=== PATIENT | male | born 1935 | race Caucasian/White ===

== ENCOUNTER 2019-06-11 12:27 | Inpatient (IN) | payer MEDICARE ==
[2019-06-11] MEDS ORDERED: NORMAL SALINE 1000 ML 1,000 ML IV ONE (12:46)
[2019-06-11] MEDS ORDERED: ONDANSETRON HCL INJ/PF 4 MG/2 ML SDV IV ONE (12:48)
--- NOTE | 2019-06-11 12:50 | ER Document Report ---
ED Medical Screen (RME) - General Chief Complaint: Dizziness Stated Complaint: DIZZINESS Time Seen by Provider: 06/11/19 12:46 Mode of Arrival: Ambulatory Information source: Patient Notes: 83-year-old male presented to ED for complaint of being sick since Thursday. He states he was outside working in the yard on Thursday when he started sweating said he drank some water changed his clothes and sweated again. He states he has been dehydrated with a headache thirsty upset stomach and nausea since Thursday. He states he has not been testing his sugar like he is supposed to and he is diabetic on metformin. He is requesting water at the bedside at this time. I have ordered blood work IV fluids and Accu-Chek at this time. Of also ordered some IV Zofran. Patient is alert oriented respirations regular and unlabored speaking in full sentences and his family is at his bedside. I have greeted and performed a rapid initial assessment of this patient. A comprehensive ED assessment and evaluation of the patient, analysis of test results and completion of medical decision making process will be conducted by an additional ED providers. TRAVEL OUTSIDE OF THE [place] IN LAST 30 DAYS: No - Related Data Allergies/Adverse Reactions: Sulfa (Sulfonamide Antibiotics) Allergy (Verified 06/11/19 12:29) Physical Exam - Vital signs Vitals: Temp Pulse Resp BP Pulse Ox 98.7 F 64 22 H 122/44 L 95 06/11/19 12:33 06/11/19 12:33 06/11/19 12:33 06/11/19 12:33 06/11/19 12:33 Course - Vital Signs Vital signs: Temp Pulse Resp BP Pulse Ox 98.7 F 64 22 H 122/44 L 95 06/11/19 12:33 06/11/19 12:33 06/11/19 12:33 06/11/19 12:33 06/11/19 12:33
--- NOTE | 2019-06-11 13:26 | ER Document Report ---
ED General - General Chief Complaint: Dizziness Stated Complaint: DIZZINESS Time Seen by Provider: 06/11/19 12:46 Primary Care Provider: RONALDO SHAY FNP-C [Primary Care Provider] - Follow up as needed Mode of Arrival: Ambulatory Information source: Patient Notes: HPI: Patient is an 83-year-old male who presents today stating around 5 days ago he was outside working in the yard very hot and sweaty. He states since then he has had episodes of lightheadedness mostly when he stands from a seated position. He denies vertigo-like symptoms. On review of systems he does state a mild frontal intermittent headache. No blurry vision, neck pain, weakness or numbness. No chest pain, vomiting, diarrhea, or dysuria. He denies any headache at this time. Patient is diabetic and has not checked his blood sugars recently. ROS: See HPI All other review of systems reviewed and otherwise negative Reviewed vital signs and nursing note as charted by RN. PHYSICAL EXAM: CONSTITUTIONAL: Alert and oriented and responds appropriately to questions. Well-appearing; well-nourished HEAD: Normocephalic; atraumatic EYES: PERRL; no nystagmus ENT: Normal nose; no rhinorrhea; moist mucous membranes; pharynx without lesions noted NECK: Supple without meningismus; non-tender; no carotid bruit; no cervical lymphadenopathy, no masses CARD: Regular rate and rhythm; no murmurs; symmetric distal pulses RESP: Normal chest excursion without splinting or tachypnea; breath sounds clear and equal bilaterally; no wheezes, no rhonchi, no rales ABD/GI: Normal bowel sounds; non-distended; soft, non-tender; no palpable organomegaly or masses BACK: The back appears normal and is non-tender to palpation EXT: Normal ROM in all joints; non-tender to palpation; no edema SKIN: No acute lesions noted NEURO: CN 2-12 intact; 5/5 bilateral upper and lower extremity strength with sensation intact to light touch; normal cerebellar exam PSYCH: The patient's mood and manner are appropriate. Grooming and personal hygiene are appropriate. TRAVEL OUTSIDE OF THE [place] IN LAST 30 DAYS: No - Related Data Allergies/Adverse Reactions: Sulfa (Sulfonamide Antibiotics) Allergy (Verified 06/11/19 12:29) Past Medical History - General Information source: Patient - Social History Smoking Status: Never Smoker Family History: Reviewed & Not Pertinent Patient has suicidal ideation: No Patient has homicidal ideation: No Renal/ Medical History: Denies: Hx Peritoneal Dialysis Physical Exam - Vital signs Vitals: Temp Pulse Resp BP Pulse Ox 98.7 F 64 22 H 122/44 L 95 06/11/19 12:33 06/11/19 12:33 06/11/19 12:33 06/11/19 12:33 06/11/19 12:33 Course - Re-evaluation Re-evalutation: 06/11/19 13:25 Given the above history and physical we will obtain basic labs, glucose level, EKG, CT scan of the head, and reassess. Given the intermittent nature of the frontal headache without blurry vision, temporal erythema or tenderness, fever, head trauma, I do believe subarachnoid hemorrhage, acute angle-closure glaucoma, temporal arteritis to be extremely unlikely. I would like to evaluate for the possibility of dehydration, cardiac abnormality, or intracranial mass. 06/11/19 13:29 EKG shows heart of 53, normal sinus rhythm, LVH, no ST elevation or depression 06/11/19 14:39 Labs as recorded. Concern for leukemia. Chemistry and CT scan as recorded. No change in exam. I am calling the local oncologist. 06/11/19 14:42 I have called and spoken to the oncologist. I have read the differential. She believes that we can keep the patient at this facility as we wait for the smear results and reassess. Patient will be admitted to the hospitalist service. - Vital Signs Vital signs: Temp Pulse Resp BP Pulse Ox 98.7 F 55 L 24 H 146/39 H 95 06/11/19 12:33 06/11/19 14:26 06/11/19 14:22 06/11/19 14:26 06/11/19 14:22 - Laboratory Result Diagrams: 06/11/19 13:04 06/11/19 13:04 Laboratory results interpreted by me: 06/11/19 06/11/19 06/11/19 13:04 13:04 13:05 WBC 88.5 H* RBC 3.69 L Hgb 10.9 L Hct 33.8 L RDW 15.2 H Seg Neuts % (Manual) 5 L Lymphocytes % (Manual) 88 H Monocytes % (Manual) 0 L Abs Lymphs (Manual) 84.1 H Abs Monocytes (Manual) 0.0 L Sodium 134.4 L Chloride 97 L BUN 24 H Creatinine 1.31 H Est GFR (MDRD) Non-Af 52 L Glucose 167 H POC Glucose 164 H Discharge - Discharge 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
[2019-06-11 13:27] LABS: VENOUS BLOOD HCO3 24.2 mmol/L (20-32); VENOUS BLOOD PCO2 42.3 mmHg (35-63); VENOUS BLOOD PH 7.38 (7.30-7.42)
[2019-06-11 13:45] LABS: ALKALINE PHOSPHATASE 52 U/L (38-126); ANION GAP 12 (5-19); ASPARTATE AMINO TRANSFERASE 34 U/L (17-59); BILIRUBIN,DIRECT 0.3 mg/dL (0.0-0.4); BLOOD UREA NITROGEN 24 mg/dL (7-20); CALCIUM 9.1 mg/dL (8.4-10.2); CARBON DIOXIDE 25 mmol/L (22-30); CHLORIDE 97 mmol/L (98-107); GLUCOSE 167 mg/dL (75-110); POTASSIUM 4.4 mmol/L (3.6-5.0); TOTAL PROTEIN 6.9 g/dL (6.3-8.2)
[2019-06-11 13:47] LABS: HEMATOCRIT 33.8 % (37.9-51.0); HEMOGLOBIN 10.9 g/dL (13.5-17.0); MEAN CORPUSCULAR HEMOGLOBIN 29.7 pg (27.0-33.4); MEAN CORPUSCULAR HGB CONC 32.3 g/dL (32.0-36.0); MEAN CORPUSCULAR VOLUME 92 fl (80-97); PLATELET COUNT 158 10^3/uL (150-450); RED BLOOD COUNT 3.69 10^6/uL (4.35-5.55); RED CELL DISTRIBUTION WIDTH 15.2 % (11.5-14.0)
--- NOTE | 2019-06-11 13:54 | RADIOLOGY REPORT (SQ) ---
EXAM DESCRIPTION: CT HEAD WITHOUT COMPLETED DATE/TIME: 06/11/2019 1:46 pm REASON FOR STUDY: 83; headaches and lightheadedness COMPARISON: None. TECHNIQUE: Axial images acquired through the brain without intravenous contrast. Images reviewed wi th bone, brain and subdural windows. Additional sagittal and coronal reconstructions were generated. Images stored on PACS. All CT scanners at this facility use dose modulation, iterative reconstruction, and/or weight based d osing when appropriate to reduce radiation dose to as low as reasonably achievable (ALARA). [facility]: Dose Right [facility]: CareDose [facility]: Dose Right [facility]: Teradose 4D [facility]: Smart [employer] RADIATION DOSE: CT Rad equipment meets quality standard of care and radiation dose reduction techniq ues were employed. CTDIvol: 48.6 mGy. DLP: 930 mGy-cm.mGy. LIMITATIONS: None. FINDINGS: VENTRICLES: Prominent. CEREBRUM: No masses. No hemorrhage. No midline shift. Areas of low density in the white matter mos t likely due to chronic micro-vascular ischemic change. No evidence for acute infarction. CEREBELLUM: No masses. No hemorrhage. No alteration of density. No evidence for acute infarction. EXTRAAXIAL SPACES: Age-related involutional change. No fluid collections. No masses. ORBITS AND GLOBE: No intra- or extraconal masses. Normal contour of globe without masses. CALVARIUM: No fracture. PARANASAL SINUSES: No fluid or mucosal thickening. SOFT TISSUES: No mass or hematoma. OTHER: No other significant finding. IMPRESSION: CHRONIC CHANGES OF ATROPHY AND MICROVASCULAR ISCHEMIA. NO ACUTE PROCESS. EVIDENCE OF ACUTE STROKE: NO. TECHNICAL DOCUMENTATION: JOB ID: [id number] Quality ID # [id number]: Final reports with documentation of one or more dose reduction techniques (e.g., Au tomated exposure control, adjustment of the mA and/or kV according to patient size, use of iterative reconstruction technique) 2010 [employer]- All Rights Reserved Reading location - IP/workstation name: [email or web address]
[2019-06-11 14:12] LABS: WHITE BLOOD COUNT 88.5 10^3/uL (4.0-10.5)
[2019-06-11 14:16] LABS: ABSOLUTE LYMPHOCYTES# (MANUAL) 84.1 10^3/uL (0.5-4.7); BASOPHILS % (MANUAL) 0 % (0-2); EOSINOPHILS % (MANUAL) 0 % (0-6); MONOCYTES % (MANUAL) 0 % (3-13); SEGMENTED NEUTROPHILS % (MAN) 5 % (42-78); TOTAL CELLS COUNTED 100
[2019-06-11 14:17] LABS: ANISOCYTOSIS SLIGHT; LYMPHOCYTES % (MANUAL) 88 % (13-45); PLATELET COMMENT ADEQUATE
[2019-06-11 14:42] LABS: APPEARANCE,URINE SLIGHTLY-CLOUDY; BILIRUBIN,URINE NEGATIVE (NEGATIVE); COLOR,URINE AMBER; GLUCOSE, URINE NEGATIVE (NEGATIVE); KETONES,URINE NEGATIVE (NEGATIVE); LEUKOCYTE ESTERASE,URINE NEGATIVE (NEGATIVE); NITRITE,URINE NEGATIVE (NEGATIVE); PROTEIN,URINE 100 mg/dL (NEGATIVE); URINE SPECIFIC GRAVITY 1.024
[2019-06-11] MEDS ORDERED: ONDANSETRON HCL INJ/PF 4 MG/2 ML SDV IV PRN (15:27)
[2019-06-11] MEDS ORDERED: DEXTROSE 50%-WATER 25 GM/50 ML DISP.SYRIN IV PRN ×2 (15:32)
[2019-06-11] MEDS ORDERED: GLUCAGON,HUMAN RECOMB 1 MG INJ IM PRN (15:32)
[2019-06-11] MEDS ORDERED: DEXTROSE 40% GEL 15 GM TUBE PO PRN ×2 (15:32)
--- NOTE | 2019-06-11 15:44 | PDOC H&P ---
History of Present Illness Admission Date/PCP: 06/11/19 15:11 NARDA DENSON Patient complains of: dizziness History of Present Illness: GUS EASTMAN is a 83 year old male history of diabetes mellitus moved from [place] 6 months ago brought in by family members with complaints of dizziness associated nausea and a decreased appetite is also mentioning about weight loss for the last few weeks. Work-up in the emergency room shows WBC of 88,000 with absolute lymphocytes of around 88% after discussion with her doctor as sought medical consult was called for admission and further management. Patient denies any fevers denies any cough denies any chest pains denies any vomiting diarrhea. Only complaints are dizziness and nausea. Is also complaining of decreased appetite weight loss but is not sure how much weight he lost. We do not have any previous records available. Past Medical History Endocrine Medical History: Reports: Diabetes Mellitus Type 2 Past Surgical History Past Surgical History: Reports: Appendectomy, Tonsillectomy Social History Information Source: Patient Lives with: Family Smoking Status: Never Smoker Frequency of Alcohol Use: Occasional Hx Recreational Drug Use: No Hx Prescription Drug Abuse: No - Advance Directive Resuscitation Status: Do Not Resuscitate Surrogate healthcare decision maker:: has the power of ip attorney. Family History Family History: Reviewed & Not Pertinent Parental Family History Reviewed: Yes - Family history of cancer. Children Family History Reviewed: Yes Sibling(s) Family History Reviewed.: Yes Medication/Allergy Home Medications: Levothyroxine Sodium [Synthroid 0.025 mg Tablet] 0.025 mg PO Q6AM 06/11/19 Metformin HCl 500 mg PO BID 06/11/19 Paroxetine HCl [Paxil] 30 mg PO DAILY 06/11/19 Pioglitazone HCl [Actos 15 mg Tablet] 15 mg PO DAILY 06/11/19 Allergies/Adverse Reactions: Sulfa (Sulfonamide Antibiotics) Allergy (Verified 06/11/19 12:29) Review of Systems Constitutional: PRESENT: fatigue, headache(s), weakness. ABSENT: fever(s), ni ght sweats Eyes: ABSENT: visual disturbances Ears: ABSENT: hearing changes Nose, Mouth, and Throat: ABSENT: sore throat Cardiovascular: ABSENT: dyspnea on exertion, edema, orthropnea, palpitations Gastrointestinal: PRESENT: nausea. ABSENT: coffee ground emesis, constipation, diarrhea, heartburn, hematemesis, hematochezia, melena, vomiting Genitourinary: ABSENT: dysuria, hematuria Musculoskeletal: ABSENT: joint swelling Integumentary: ABSENT: rash, wounds Neurological: PRESENT: dizziness Psychiatric: ABSENT: anxiety, depression, homidical ideation, suicidal ideation Physical Exam Vital Signs: Temp Pulse Resp BP Pulse Ox 98.7 F 55 L 24 H 134/46 H 92 06/11/19 12:33 06/11/19 14:26 06/11/19 15:01 06/11/19 15:00 06/11/19 15:01 Intake & Output 06/10/19 06/11/19 06/12/19 06:59 06:59 06:59 Intake Total 1000 Balance 1000 Weight 99.3 kg General appearance: PRESENT: no acute distress, cooperative Head exam: PRESENT: atraumatic, other Eye exam: PRESENT: PERRLA Ear exam: PRESENT: normal external ear exam Mouth exam: PRESENT: neck supple Neck exam: ABSENT: carotid bruit, JVD, lymphadenopathy, thyromegaly Respiratory exam: PRESENT: decreased breath sounds Cardiovascular exam: PRESENT: RRR. ABSENT: diastolic murmur, rubs, systolic mur mur GI/Abdominal exam: PRESENT: normal bowel sounds, soft. ABSENT: distended, guarding, mass, organolmegaly, rebound, tenderness Rectal exam: PRESENT: deferred Extremities exam: PRESENT: full ROM. ABSENT: calf tenderness, clubbing, pedal edema Neurological exam: PRESENT: alert, awake, oriented to person, oriented to place, oriented to time, oriented to situation, CN II-XII grossly intact. ABSENT: motor sensory deficit Psychiatric exam: PRESENT: anxious Results Laboratory Results: 06/11/19 13:04 06/11/19 13:04 06/11/19 06/11/19 06/11/19 13:04 13:04 13:04 WBC 88.5 H* RBC 3.69 L Hgb 10.9 L Hct 33.8 L MCV 92 MCH 29.7 MCHC 32.3 RDW 15.2 H Plt Count 158 Seg Neutrophils % Not Reportable VBG pH 7.38 VBG pCO2 42.3 VBG HCO3 24.2 VBG Base Excess -1.0 Sodium 134.4 L Potassium 4.4 Chloride 97 L Carbon Dioxide 25 Anion Gap 12 BUN 24 H Creatinine 1.31 H Est GFR ( Amer) > 60 Glucose 167 H Calcium 9.1 Total Bilirubin 1.0 AST 34 Alkaline Phosphatase 52 Total Protein 6.9 Albumin 4.0 Urine Color Urine Appearance Urine pH Ur Specific [place] Urine Protein Urine Glucose (UA) Urine Ketones Urine Blood Urine Nitrite Ur Leukocyte Esterase Urine WBC (Auto) Urine RBC (Auto) 06/11/19 14:00 WBC RBC Hgb Hct MCV MCH MCHC RDW Plt Count Seg Neutrophils % VBG pH VBG pCO2 VBG HCO3 VBG Base Excess Sodium Potassium Chloride Carbon Dioxide Anion Gap BUN Creatinine Est GFR ( Amer) Glucose Calcium Total Bilirubin AST Alkaline Phosphatase Total Protein Albumin Urine Color JANET Urine Appearance SLIGHTLY-CLOUDY Urine pH 5.0 Ur Specific [place] 1.024 Urine Protein 100 H Urine Glucose (UA) NEGATIVE Urine Ketones NEGATIVE Urine Blood MODERATE H Urine Nitrite NEGATIVE Ur Leukocyte Esterase NEGATIVE Urine WBC (Auto) 1 Urine RBC (Auto) 4 06/11/19 13:04 Troponin I 0.031 Impressions: Head CT 06/11/19 13:23 IMPRESSION: CHRONIC CHANGES OF ATROPHY AND MICROVASCULAR ISCHEMIA. NO ACUTE PROCESS. EVIDENCE OF ACUTE STROKE: NO. 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 Consultation with Dr. garibay was requested. Started on IV fluids as per her recommendations. CT abdomen/pelvis, CT chest with IV and p.o. contrast was requested. GI prophylaxis DVT prophylaxis was provided. Leukocyte lymphocyte panel lab test was requested. Patient was placed on a diabetic diet and insulin sliding scale before meals and at bedtime. (2) Diabetes Qualifiers: Diabetes mellitus type: type 2 Is this a current diagnosis for this admission?: No Plan: 06/11/2019-patient given the history of type 2 diabetes mellitus is taking Actos and metformin at home. To hold metformin and continue Actos started on blood sugar monitoring before meals and at bedtime with Humalog coverage and hemoglobin A1c was requested. (3) DNR (do not resuscitate) Is this a current diagnosis for this admission?: Yes Plan: 06/11/2019-patient expressed his desire to be DNR/DNI. - Time Time Spent with patient: 15-24 minutes Medications reviewed and adjusted accordingly: Yes Anticipated discharge: Home
--- NOTE | 2019-06-11 17:04 | Progress Note ---
Provider Note Provider Note: I was asked to see patient for elevated WBC count. I have reviewed patient's chart but have not yet been able to see the patient. 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 Will obtain Flow Cytometry for leukemia on peripheral blood. Fluids have been started. Will repeat CBC in about 12 hours and consider starting Hydrea at that point. His HGB and PLTs are fairly close to normal. No indication for blood transfusion at this time. I will see patient within 24 hours.
[2019-06-11 18:51] LABS: HEMATOCRIT 31.1 % (37.9-51.0); HEMOGLOBIN 9.8 g/dL (13.5-17.0); MEAN CORPUSCULAR HEMOGLOBIN 29.1 pg (27.0-33.4); MEAN CORPUSCULAR HGB CONC 31.6 g/dL (32.0-36.0); MEAN CORPUSCULAR VOLUME 92 fl (80-97); PLATELET COUNT 156 10^3/uL (150-450); RED BLOOD COUNT 3.38 10^6/uL (4.35-5.55); RED CELL DISTRIBUTION WIDTH 15.4 % (11.5-14.0)
[2019-06-11 19:11] LABS: WHITE BLOOD COUNT 89.8 10^3/uL (4.0-10.5)
--- NOTE | 2019-06-11 19:12 | EKG REPORT ---
SEVERITY:- ABNORMAL ECG - SINUS RHYTHM LVH WITH IVCD AND SECONDARY REPOL ABNRM : Confirmed by: Abiola Oneal MD 11-Jun-2019 19:11:49
[2019-06-11 19:14] LABS: ABSOLUTE LYMPHOCYTES# (MANUAL) 82.6 10^3/uL (0.5-4.7); ABSOLUTE MONOCYTES # (MANUAL) 0.9 10^3/uL (0.1-1.4); BASOPHILS % (MANUAL) 0 % (0-2); EOSINOPHILS % (MANUAL) 0 % (0-6); LYMPHOCYTES % (MANUAL) 88 % (13-45); MONOCYTES % (MANUAL) 1 % (3-13); SEGMENTED NEUTROPHILS % (MAN) 7 % (42-78); TOTAL CELLS COUNTED 100
[2019-06-11 19:15] LABS: ANISOCYTOSIS SLIGHT; OVALOCYTES SLIGHT; PLATELET COMMENT ADEQUATE; POIKILOCYTOSIS SLIGHT
[2019-06-11] MEDS: INSULIN LISPRO 100 UNIT/ML 3 ML VIAL SUBCUT SCH ×2 (19:29→23:23)
[2019-06-11] MEDS: ENOXAPARIN SODIUM INJ 40 MG/0.4 ML DISP.SYRIN SUBCUT SCH (19:32)
[2019-06-11] MEDS: PANTOPRAZOLE SODIUM 40 MG TABLET.DR PO SCH (19:32)
[2019-06-11] MEDS: NORMAL SALINE 1000 ML 1,000 ML IV PRN (19:34)
--- NOTE | 2019-06-11 19:37 | RADIOLOGY REPORT (SQ) ---
EXAM DESCRIPTION: CT CHEST WITH; CT ABD/PELVIS WITH IV ORAL COMPLETED DATE/TIME: 06/11/2019 6:50 pm REASON FOR STUDY: leukemia; acute leukemia CONTRAST TYPE AND DOSE: contrast/concentration: Isovue 350.00 mg/ml; Total Contrast Delivered: 100.0 ml; Total Saline Delivered: 72.0 ml RENAL FUNCTION: Creatinine 1.31 COMPARISON: None. TECHNIQUE: CT scan of the chest performed using helical scanning technique with dynamic intravenous contrast injection. Images reviewed with lung, soft tissue and bone windows. Reconstructed coronal a nd sagittal MPR images reviewed. All images stored on PACS. All CT scanners at this facility use dose modulation, iterative reconstruction, and/or weight based d osing when appropriate to reduce radiation dose to as low as reasonably achievable (ALARA). [facility]: Dose Right [facility]: CareDose [facility]: Dose Right [facility]: Teradose 4D [facility]: [employer] RADIATION DOSE: CT Rad equipment meets quality standard of care and radiation dose reduction techniq ues were employed. CTDIvol: 11.8 - 13.7 mGy. DLP: 1981 mGy-cm.. LIMITATIONS: Patient motion artifact. FINDINGS: AXILLAE: Enlarged lymph nodes are seen at the bilateral axillary regions measuring up to 1 3 mm in short axis on the right and 17 mm in short axis on the left. CHEST WALL: No masses. No subcutaneous air. LUNGS: Masslike consolidation with adjacent ground-glass opacity at the medial right lower lobe. No pneumothorax PLEURA: No effusions. No calcifications. THYROID: No masses or significant asymmetry. HILAR AND MEDIASTINAL STRUCTURES: Calcified lymph nodes are seen at the mediastinum and hilar regions . Enlarged lymph nodes are noted at the mediastinum. An AP window lymph node is measuring 16 mm in short axis. A subcarinal lymph node is measuring 14 mm in short axis. AORTA AND GREAT VESSELS: No thoracic aortic aneurysm or acute dissection. HEART: The heart is enlarged. No pericardial effusion. HARDWARE AND LIFELINES: None. BONES: Multilevel degenerative changes at the spine. IMPRESSION: 1. Masslike consolidation with adjacent ground-glass opacity at the medial right lower lobe, may be secondary to acute infection/inflammation such as pneumonia versus neoplasm. Clinical correlation recommended. Evaluation with PET/ CT as clinically warranted. 2. Mediastinal and axillary adenopathy, may be secondary to known leukemia. 3. Cardiomegaly. COMPARISON: None. RADIATION DOSE: CT Rad equipment meets quality standard of care and radiation dose reduction techniq ues were employed. CTDIvol: 11.8 - 13.7 mGy. DLP: 1981 mGy-cm.mGy. TECHNIQUE: CT scan of the abdomen and pelvis performed with intravenous and oral contrast using elias zulma scanning technique with dynamic intravenous contrast injection. Images reviewed with lung, soft tissue and bone windows. Reconstructed coronal and sagittal MPR images reviewed. Delayed images for evaluation of the urinary system also acquired and evaluated. All images stored on PACS. All CT scanners at this facility use dose modulation, iterative reconstruction, and/or weight based d osing when appropriate to reduce radiation dose to as low as reasonably achievable (ALARA). [facility]: Dose Right [facility]: [employer] [facility]: Dose Right [facility]: Teradose 4D [facility]: [employer] FINDINGS: LIVER: Normal size. No masses. No dilated ducts. Periportal adenopathy measuring up to 1 .8 cm in short axis. SPLEEN: Normal size. There is a 1.7 x 1.3 cm hypodense lesion at the anterior aspect of the spleen. Small calcifications within the spleen may represent granulomas. PANCREAS: No masses. No significant calcifications. No adjacent inflammation or peripancreatic flui d collections. Pancreatic duct not dilated. GALLBLADDER: No identified stones by CT criteria. No inflammatory changes to suggest cholecystitis. ADRENAL GLANDS: No significant masses or asymmetry. RIGHT KIDNEY AND URETER: There is a 7 mm (608 Hounsfield units) calculus at the mid right ureter at L3-L4 level. There is a nonobstructing 2 mm calculus at the inferior pole of the right kidney. No hy dronephrosis or hydroureter. LEFT KIDNEY AND URETER: Nonobstructing calculi at the left kidney measuring up to 8 mm (954 Hounsfiel d units). No hydronephrosis or hydroureter. AORTA AND VESSELS: Atherosclerotic calcifications within the abdominal and its branches. No abdomina l aortic aneurysm or acute dissection. RETROPERITONEUM: There are enlarged retroperitoneal lymph nodes. A left para-aortic lymph node is me asuring 2.1 cm in short axis. LARGE AND SMALL BOWEL: No bowel obstruction, the oral contrast has reached the colon. No focal infla mmatory changes. There is colonic diverticulosis with no CT evidence for acute diverticulitis. APPENDIX: Not visualized. ABDOMINAL WALL: There is a small fat containing umbilical hernia. PERITONEAL CAVITY: No free air. No free fluid. PELVIS: No mass or free fluid. The urinary bladder is partially distended. There are enlarged lymph nodes at the pelvis, the largest along the external iliac chains measuring up to 2.1 cm in short axi s on the right and 2.2 cm in short axis on the left. There are bilateral enlarged inguinal lymph nod es measuring up to 1.7 cm in short axis on the right and 1.1 cm in short axis on the left. BONES: Multilevel degenerative changes at the spine. IMPRESSION: 1. Abdominal, retroperitoneal, pelvic and inguinal adenopathy, may be secondary to known leukemia. 2. 1.7 x 1.3 cm hypodense splenic lesion, indeterminate. 3. 7 mm right ureteral calculus. No hydronephrosis. Bilateral nephrolithiasis. 4. Colonic diverticulosis. TECHNICAL DOCUMENTATION: JOB ID: [id number] Quality ID # [id number]: Final reports with documentation of one or more dose reduction techniques (e.g., Au tomated exposure control, adjustment of the mA and/or kV according to patient size, use of iterative reconstruction technique) 2010 [employer]- All Rights Reserved Reading location - IP/workstation name: [email or web address]
[2019-06-11] MEDS: ACETAMINOPHEN 325 MG TABLET PO PRN (20:35)
[2019-06-11] MEDS ORDERED: CEFTRIAXONE 1 GM/D5W RTU 1 GM/50 ML RTUPB IV ONE (22:33)
[2019-06-11] MEDS: CEFTRIAXONE 1 GM/D5W RTU 1 GM/50 ML RTUPB IV SCH (23:30)
[2019-06-12 04:46] LABS: HEMATOCRIT 30.4 % (37.9-51.0); HEMOGLOBIN 9.7 g/dL (13.5-17.0); MEAN CORPUSCULAR HEMOGLOBIN 29.4 pg (27.0-33.4); MEAN CORPUSCULAR HGB CONC 32.1 g/dL (32.0-36.0); MEAN CORPUSCULAR VOLUME 92 fl (80-97); PLATELET COUNT 136 10^3/uL (150-450); RED BLOOD COUNT 3.31 10^6/uL (4.35-5.55); RED CELL DISTRIBUTION WIDTH 15.1 % (11.5-14.0)
[2019-06-12 04:58] LABS: ALBUMIN 3.3 g/dL (3.5-5.0); ALKALINE PHOSPHATASE 46 U/L (38-126); ANION GAP 11 (5-19); ASPARTATE AMINO TRANSFERASE 40 U/L (17-59); BILIRUBIN,DIRECT 0.4 mg/dL (0.0-0.4); BILIRUBIN,TOTAL 0.8 mg/dL (0.2-1.3); BLOOD UREA NITROGEN 24 mg/dL (7-20); CALCIUM 8.4 mg/dL (8.4-10.2); CARBON DIOXIDE 23 mmol/L (22-30); CHLORIDE 99 mmol/L (98-107); CHOLESTEROL 127.34 mg/dL (0-200); GLUCOSE 122 mg/dL (75-110); POTASSIUM 4.2 mmol/L (3.6-5.0); TRIGLYCERIDES 102 mg/dL (<150)
[2019-06-12 05:08] LABS: DIRECT LDL 91 mg/dL (<100)
[2019-06-12 05:13] LABS: WHITE BLOOD COUNT 83.1 10^3/uL (4.0-10.5)
[2019-06-12 05:37] LABS: ABSOLUTE LYMPHOCYTES# (MANUAL) 82.3 10^3/uL (0.5-4.7); BASOPHILS % (MANUAL) 0 % (0-2); EOSINOPHILS % (MANUAL) 0 % (0-6); LYMPHOCYTES % (MANUAL) 92 % (13-45); MONOCYTES % (MANUAL) 0 % (3-13); SEGMENTED NEUTROPHILS % (MAN) 1 % (42-78); TOTAL CELLS COUNTED 100
[2019-06-12 05:38] LABS: ANISOCYTOSIS SLIGHT; PLATELET COMMENT DECREASED
[2019-06-12] MEDS: PANTOPRAZOLE SODIUM 40 MG TABLET.DR PO SCH ×2 (06:16→17:27)
[2019-06-12] MEDS: ACETAMINOPHEN 325 MG TABLET PO PRN ×3 (06:18→23:21)
[2019-06-12] MEDS: INSULIN LISPRO 100 UNIT/ML 3 ML VIAL SUBCUT SCH ×4 (08:56→21:56)
[2019-06-12] MEDS: LEVOTHYROXINE SODIUM 0.025 MG TABLET PO SCH (08:58)
--- NOTE | 2019-06-12 08:59 | PDOC PROGRESS REPORT ---
Subjective Progress Note for:: 06/12/19 Subjective:: 83 year old male history of diabetes mellitus moved from [place] 6 months ago brought in by family members with complaints of dizziness associated nausea and a decreased appetite is also mentioning about weight loss for the last few weeks. Work-up in the emergency room shows WBC of 88,000 with absolute lymphocytes of around 88% after discussion with her doctor as sought medical consult was called for admission and further management. Patient denies any fevers denies any cough denies any chest pains denies any vomiting diarrhea. Only complaints are dizziness and nausea. Is also complaining of decreased appetite weight loss but is not sure how much weight he lost. We do not have any previous records available. 06/12/[id number]-zjme-old male admitted with elevated WBC count patient might have acute leukemia or chronic lymphocytic leukemia. CT chest was done along with CT abdomen pelvis which shows abdominal retroperitoneal pelvic and inguinal lymphadenopathy. Splenic lesion is seen present. Work-up for alpha-fetoprotein and flow cytology is pending. Patient is DNR/DNI. comfortably in be sleeping. Reason For Visit: ACUTE LEUKEMIA Physical Exam Vital Signs: Temp Pulse Resp BP Pulse Ox 98.9 F 57 L 20 118/42 L 94 06/12/19 00:00 06/12/19 00:00 06/12/19 00:00 06/12/19 00:00 06/12/19 00:00 Intake & Output 06/11/19 06/12/19 06/13/19 06:59 06:59 06:59 Intake Total 1050 Output Total 100 Balance 950 Weight 99.3 kg General appearance: PRESENT: no acute distress, obese Head exam: PRESENT: atraumatic Eye exam: PRESENT: PERRLA Mouth exam: PRESENT: moist, tongue midline Teeth exam: PRESENT: poor dentation Neck exam: ABSENT: carotid bruit, JVD, lymphadenopathy, thyromegaly Respiratory exam: PRESENT: clear to auscultation zeke. ABSENT: rales, rhonchi, wheezes Cardiovascular exam: PRESENT: RRR. ABSENT: diastolic murmur, rubs, systolic murmur GI/Abdominal exam: PRESENT: normal bowel sounds, soft. ABSENT: distended, guarding, mass, organolmegaly, rebound, tenderness Rectal exam: PRESENT: deferred Extremities exam: PRESENT: full ROM. ABSENT: calf tenderness, clubbing, pedal edema Neurological exam: PRESENT: alert, awake, oriented to person, oriented to place, oriented to time, oriented to situation, CN II-XII grossly intact. ABSENT: motor sensory deficit Psychiatric exam: PRESENT: appropriate affect, normal mood. ABSENT: homicidal ideation, suicidal ideation Results Laboratory Results: 06/12/19 04:06 06/12/19 04:06 06/11/19 06/11/19 06/11/19 13:04 13:04 13:04 WBC 88.5 H* RBC 3.69 L Hgb 10.9 L Hct 33.8 L MCV 92 MCH 29.7 MCHC 32.3 RDW 15.2 H Plt Count 158 Seg Neutrophils % Not Reportable VBG pH 7.38 VBG pCO2 42.3 VBG HCO3 24.2 VBG Base Excess -1.0 Sodium 134.4 L Potassium 4.4 Chloride 97 L Carbon Dioxide 25 Anion Gap 12 BUN 24 H Creatinine 1.31 H Est GFR ( Amer) > 60 Glucose 167 H Calcium 9.1 Magnesium Total Bilirubin 1.0 AST 34 Alkaline Phosphatase 52 Total Protein 6.9 Albumin 4.0 Triglycerides Cholesterol LDL Cholesterol Direct VLDL Cholesterol HDL Cholesterol TSH Urine Color Urine Appearance Urine pH Ur Specific [place] Urine Protein Urine Glucose (UA) Urine Ketones Urine Blood Urine Nitrite Ur Leukocyte Esterase Urine WBC (Auto) Urine RBC (Auto) 06/11/19 06/11/19 06/12/19 14:00 18:25 04:06 WBC 89.8 H* 83.1 H* RBC 3.38 L 3.31 L Hgb 9.8 L 9.7 L Hct 31.1 L 30.4 L MCV 92 92 MCH 29.1 29.4 MCHC 31.6 L 32.1 RDW 15.4 H 15.1 H Plt Count 156 136 L Seg Neutrophils % Not Reportable Not Reportable VBG pH VBG pCO2 VBG HCO3 VBG Base Excess Sodium Potassium Chloride Carbon Dioxide Anion Gap BUN Creatinine Est GFR ( Amer) Glucose Calcium Magnesium Total Bilirubin AST Alkaline Phosphatase Total Protein Albumin Triglycerides Cholesterol LDL Cholesterol Direct VLDL Cholesterol HDL Cholesterol TSH Urine Color JANET Urine Appearance SLIGHTLY-CLOUDY Urine pH 5.0 Ur Specific [place] 1.024 Urine Protein 100 H Urine Glucose (UA) NEGATIVE Urine Ketones NEGATIVE Urine Blood MODERATE H Urine Nitrite NEGATIVE Ur Leukocyte Esterase NEGATIVE Urine WBC (Auto) 1 Urine RBC (Auto) 4 06/12/19 06/12/19 04:06 04:06 WBC RBC Hgb Hct MCV MCH MCHC RDW Plt Count Seg Neutrophils % VBG pH VBG pCO2 VBG HCO3 VBG Base Excess Sodium 132.9 L Potassium 4.2 Chloride 99 Carbon Dioxide 23 Anion Gap 11 BUN 24 H Creatinine 1.24 Est GFR ( Amer) > 60 Glucose 122 H Calcium 8.4 Magnesium 2.0 Total Bilirubin 0.8 AST 40 Alkaline Phosphatase 46 Total Protein 6.0 L Albumin 3.3 L Triglycerides 102 Cholesterol 127.34 LDL Cholesterol Direct 91 VLDL Cholesterol 20.0 HDL Cholesterol 21 L TSH 4.17 Urine Color Urine Appearance Urine pH Ur Specific [place] Urine Protein Urine Glucose (UA) Urine Ketones Urine Blood Urine Nitrite Ur Leukocyte Esterase Urine WBC (Auto) Urine RBC (Auto) 06/11/19 06/12/19 13:04 04:06 Troponin I 0.031 NT-Pro-B Natriuret Pep 2470 H Impressions: Abdomen/Pelvis CT 06/11/19 00:00 IMPRESSION: 1. Masslike consolidation with adjacent ground-glass opacity at the medial right lower lobe, may be secondary to acute infection/inflammation such as pneumonia versus neoplasm. Clinical correlation recommended. Evaluation with PET/ CT as clinically warranted. 2. Mediastinal and axillary adenopathy, may be secondary to known leukemia. 3. Cardiomegaly. IMPRESSION: 1. Abdominal, retroperitoneal, pelvic and inguinal adenopathy, may be secondary to known leukemia. 2. 1.7 x 1.3 cm hypodense splenic lesion, indeterminate. 3. 7 mm right ureteral calculus. No hydronephrosis. Bilateral nephrolithiasis. 4. Colonic diverticulosis. Chest CT 06/11/19 00:00 IMPRESSION: 1. Masslike consolidation with adjacent ground-glass opacity at the medial right lower lobe, may be secondary to acute infection/inflammation such as pneumonia versus neoplasm. Clinical correlation recommended. Evaluation with PET/ CT as clinically warranted. 2. Mediastinal and axillary adenopathy, may be secondary to known leukemia. 3. Cardiomegaly. IMPRESSION: 1. Abdominal, retroperitoneal, pelvic and inguinal adenopathy, may be secondary to known leukemia. 2. 1.7 x 1.3 cm hypodense splenic lesion, indeterminate. 3. 7 mm right ureteral calculus. No hydronephrosis. Bilateral nephrolithiasis. 4. Colonic diverticulosis. Head CT 06/11/19 13:23 IMPRESSION: CHRONIC CHANGES OF ATROPHY AND MICROVASCULAR ISCHEMIA. NO ACUTE PROCESS. EVIDENCE OF ACUTE STROKE: NO. 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 Consultation with Dr. garibay was requested. Started on IV fluids as per her recommendations. CT abdomen/pelvis, CT chest with IV and p.o. contrast was requested. GI prophylaxis DVT prophylaxis was provided. Leukocyte lymphocyte panel lab test was requested. Patient was placed on a diabetic diet and insulin sliding scale before meals and at bedtime. 06/12/2019-patient admitted with elevated WBC count. Blood cultures work-up is pending to see whether it is acute lymphocytic leukemia or chronic lymphocytic leukemia. As per Dr. Curtis recommendations patient is presently on IV fluids. CT abdomen pelvis along with CT chest indicates extensive lymphadenopathy. Splenic lesion was noticed. Flow cytometry results are pending. (2) Diabetes Qualifiers: Diabetes mellitus type: type 2 Is this a current diagnosis for this admission?: No Plan: 06/11/2019-patient given the history of type 2 diabetes mellitus is taking Actos and metformin at home. To hold metformin and continue Actos started on blood sugar monitoring before meals and at bedtime with Humalog coverage and hemoglobin A1c was requested. 06/12/2019-patient's blood sugar is 157 today. Presently on insulin sliding scale. At home he is on Actos and metformin to hold metformin during this hospital stay. Blood sugar monitoring before meals and at bedtime with insulin coverage. Hemoglobin A1c 7.5. (3) DNR (do not resuscitate) Is this a current diagnosis for this admission?: Yes - Time Time Spent with patient: 25-34 minutes Medications reviewed and adjusted accordingly: Yes Anticipated discharge: Home
[2019-06-12] MEDS ORDERED: (PENDING PHARMACY ID) (Paroxetine Hcl [Paxil] 30 MG) PO SCH (10:00)
[2019-06-12] MEDS: NORMAL SALINE 1000 ML 1,000 ML IV PRN (10:42)
[2019-06-12] MEDS: PIOGLITAZONE HCL 15 MG TABLET PO SCH (10:43)
[2019-06-12] MEDS: ENOXAPARIN SODIUM INJ 40 MG/0.4 ML DISP.SYRIN SUBCUT SCH (10:43)
--- NOTE | 2019-06-12 14:10 | PDOC CONSULTATION ---
Consultation Consult Date: 06/12/19 Provider Consulted: UNRULY ZAMARRIPA Consult reason:: Hematology/Oncology consultation was requested for patient with elevated WBC count. History of Present Illness Admission Date/PCP: 06/11/19 15:11 NARDA DENSON History of Present Illness: GUS EASTMAN is a 83 year old male who moved here from [place], [place] area about 6 months ago. Patient is pleasantly confused and does not remember the name of his physicians in [place] or locally. I also spoke with daughter and she confirmed his history and states that she will try to obtain prior records [facility]. Patient was doing well until 6 days prior to admission when he states he was out in the hot sum working and felt "funny." Daughter reports that he was just "not himself." He was sleeping more, complaining of headache, and some knee pain. Family reports that he has been told in the past that his blood counts were elevated, but they deny that he was seeing a kitchen bath designer. Patient states that in [place] they were "squashing it." On arrival, he was found to have a fever and WBC count of >80,000. He was admitted, started on fluids, and also started on Rocephin after blood cultures were drawn. His Tmax was 102.7. Past Medical History Endocrine Medical History: Reports: Diabetes Mellitus Type 2 Psychiatric Medical History: Reports: Depression Past Surgical History Past Surgical History: Reports: Appendectomy, Tonsillectomy Social History Information Source: Patient, Relative Lives with: Family Smoking Status: Never Smoker Frequency of Alcohol Use: Occasional Hx Recreational Drug Use: No Drugs: None Hx Prescription Drug Abuse: No Past Social History Note: 3 children, 7 grand children. - Advance Directive Resuscitation Status: Do Not Resuscitate Family History Parental Family History Reviewed: Yes - Patient does not remember Children Family History Reviewed: No Sibling(s) Family History Reviewed.: No Medication/Allergy Home Medications: Levothyroxine Sodium [Synthroid 0.025 mg Tablet] 0.025 mg PO Q6AM 06/11/19 Metformin HCl 500 mg PO BID 06/11/19 Paroxetine HCl [Paxil] 30 mg PO DAILY 06/11/19 Pioglitazone HCl [Actos 15 mg Tablet] 15 mg PO DAILY 06/11/19 Allergies/Adverse Reactions: Sulfa (Sulfonamide Antibiotics) Allergy (Verified 06/11/19 12:29) Review of Systems Constitutional: PRESENT: fever(s), headache(s) Eyes: ABSENT: visual disturbances Ears: ABSENT: hearing changes Nose, Mouth, and Throat: ABSENT: sore throat Cardiovascular: ABSENT: chest pain Respiratory: ABSENT: dyspnea Gastrointestinal: ABSENT: constipation, nausea Genitourinary: ABSENT: dysuria Integumentary: ABSENT: rash Neurological: PRESENT: confusion Hematologic/Lymphatic: ABSENT: easy bleeding, lymphadenopathy Physical Exam Vital Signs: Temp Pulse Resp BP Pulse Ox 98.9 F 54 L 16 112/47 L 94 06/12/19 08:36 06/12/19 08:36 06/12/19 08:36 06/12/19 08:36 06/12/19 08:36 Intake & Output 06/11/19 06/12/19 06/13/19 06:59 06:59 06:59 Intake Total 1050 1000 Output Total 100 Balance 950 1000 Weight 99.3 kg General appearance: PRESENT: no acute distress, well-developed, well-nourished Exam: 83 year old male. Head exam: PRESENT: atraumatic, normocephalic Eye exam: PRESENT: EOMI Mouth exam: PRESENT: tongue midline Throat exam: PRESENT: other - No thrush. Neck exam: ABSENT: lymphadenopathy, tenderness Respiratory exam: PRESENT: clear to auscultation zeke Cardiovascular exam: PRESENT: RRR. ABSENT: systolic murmur GI/Abdominal exam: PRESENT: normal bowel sounds, soft. ABSENT: organolmegaly Extremities exam: ABSENT: pedal edema Neurological exam: PRESENT: alert, awake, oriented to person. ABSENT: oriented to place, oriented to time Psychiatric exam: PRESENT: appropriate affect, depressed, other - Very sleepy. Skin exam: PRESENT: normal color Results Laboratory Results: 06/12/19 04:06 06/12/19 04:06 06/11/19 06/11/19 06/11/19 13:04 14:00 18:25 WBC 88.5 H* 89.8 H* RBC 3.69 L 3.38 L Hgb 10.9 L 9.8 L Hct 33.8 L 31.1 L MCV 92 92 MCH 29.7 29.1 MCHC 32.3 31.6 L RDW 15.2 H 15.4 H Plt Count 158 156 Seg Neutrophils % Not Reportable Not Reportable Sodium Potassium Chloride Carbon Dioxide Anion Gap BUN Creatinine Est GFR ( Amer) Glucose Calcium Magnesium Total Bilirubin AST Alkaline Phosphatase Total Protein Albumin Triglycerides Cholesterol LDL Cholesterol Direct VLDL Cholesterol HDL Cholesterol TSH Urine Color JANET Urine Appearance SLIGHTLY-CLOUDY Urine pH 5.0 Ur Specific [place] 1.024 Urine Protein 100 H Urine Glucose (UA) NEGATIVE Urine Ketones NEGATIVE Urine Blood MODERATE H Urine Nitrite NEGATIVE Ur Leukocyte Esterase NEGATIVE Urine WBC (Auto) 1 Urine RBC (Auto) 4 06/12/19 06/12/19 06/12/19 04:06 04:06 04:06 WBC 83.1 H* RBC 3.31 L Hgb 9.7 L Hct 30.4 L MCV 92 MCH 29.4 MCHC 32.1 RDW 15.1 H Plt Count 136 L Seg Neutrophils % Not Reportable Sodium 132.9 L Potassium 4.2 Chloride 99 Carbon Dioxide 23 Anion Gap 11 BUN 24 H Creatinine 1.24 Est GFR ( Amer) > 60 Glucose 122 H Calcium 8.4 Magnesium 2.0 Total Bilirubin 0.8 AST 40 Alkaline Phosphatase 46 Total Protein 6.0 L Albumin 3.3 L Triglycerides 102 Cholesterol 127.34 LDL Cholesterol Direct 91 VLDL Cholesterol 20.0 HDL Cholesterol 21 L TSH 4.17 Urine Color Urine Appearance Urine pH Ur Specific [place] Urine Protein Urine Glucose (UA) Urine Ketones Urine Blood Urine Nitrite Ur Leukocyte Esterase Urine WBC (Auto) Urine RBC (Auto) 06/11/19 06/12/19 13:04 04:06 Troponin I 0.031 NT-Pro-B Natriuret Pep 2470 H Impressions: Abdomen/Pelvis CT 06/11/19 00:00 IMPRESSION: 1. Masslike consolidation with adjacent ground-glass opacity at the medial right lower lobe, may be secondary to acute infection/inflammation such as pneumonia versus neoplasm. Clinical correlation recommended. Evaluation with PET/ CT as clinically warranted. 2. Mediastinal and axillary adenopathy, may be secondary to known leukemia. 3. Cardiomegaly. IMPRESSION: 1. Abdominal, retroperitoneal, pelvic and inguinal adenopathy, may be secondary to known leukemia. 2. 1.7 x 1.3 cm hypodense splenic lesion, indeterminate. 3. 7 mm right ureteral calculus. No hydronephrosis. Bilateral nephrolithiasis. 4. Colonic diverticulosis. Chest CT 06/11/19 00:00 IMPRESSION: 1. Masslike consolidation with adjacent ground-glass opacity at the medial right lower lobe, may be secondary to acute infection/inflammation such as pneumonia versus neoplasm. Clinical correlation recommended. Evaluation with PET/ CT as clinically warranted. 2. Mediastinal and axillary adenopathy, may be secondary to known leukemia. 3. Cardiomegaly. IMPRESSION: 1. Abdominal, retroperitoneal, pelvic and inguinal adenopathy, may be secondary to known leukemia. 2. 1.7 x 1.3 cm hypodense splenic lesion, indeterminate. 3. 7 mm right ureteral calculus. No hydronephrosis. Bilateral nephrolithiasis. 4. Colonic diverticulosis. Head CT 06/11/19 13:23 IMPRESSION: CHRONIC CHANGES OF ATROPHY AND MICROVASCULAR ISCHEMIA. NO ACUTE PROCESS. EVIDENCE OF ACUTE STROKE: NO. 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 This may be CLL, as his peripheral blood smear shows mainly mature lymphocytes. However, there is no splenomegaly, and I have no old CBCs for comparison. Daughter will try to obtain old records, both locally and from [place]. Await Peripheral blood Flow Cytometry. He has been started on IV fluids. I will start Hydrea, low dose and watch counts closely. No indication for blood transfusion at this time. (2) Diabetes Qualifiers: Diabetes mellitus type: type 2 Is this a current diagnosis for this admission?: No Plan: Watch blood glucose. (3) Pneumonia Is this a current diagnosis for this admission?: Yes Plan: CT scan showed possible pneumonia and with fever, will treat emperically, awaiting blood cultures. Clinically, lungs sound clear. - Plan Summary Plan Summary: I will continue to follow with you. If evidence that this is an acute leukemia, may nee dto transfer to tertiary center, but will await Flow report. Patient was discussed with Dr. Ramirez. I did examine blood smear personally.
[2019-06-12] MEDS: PAROXETINE HCL 20 MG TABLET PO SCH (15:02)
[2019-06-12] MEDS: HYDROXYUREA 500 MG CAPSULE PO SCH (17:29)
[2019-06-12] MEDS: CEFTRIAXONE 1 GM/D5W RTU 1 GM/50 ML RTUPB IV SCH (22:01)
[2019-06-13] MEDS: PANTOPRAZOLE SODIUM 40 MG TABLET.DR PO SCH ×2 (06:15→20:52)
[2019-06-13] MEDS: LEVOTHYROXINE SODIUM 0.025 MG TABLET PO SCH (06:15)
[2019-06-13 06:22] LABS: HEMATOCRIT 30.6 % (37.9-51.0); HEMOGLOBIN 9.7 g/dL (13.5-17.0); MEAN CORPUSCULAR HEMOGLOBIN 29.1 pg (27.0-33.4); MEAN CORPUSCULAR HGB CONC 31.7 g/dL (32.0-36.0); MEAN CORPUSCULAR VOLUME 92 fl (80-97); PLATELET COUNT 161 10^3/uL (150-450); RED BLOOD COUNT 3.33 10^6/uL (4.35-5.55); RED CELL DISTRIBUTION WIDTH 15.2 % (11.5-14.0)
[2019-06-13] MEDS ORDERED: MORPHINE SULFATE 10 MG/ML INJ ONE (06:34)
[2019-06-13 06:38] LABS: ALBUMIN 3.2 g/dL (3.5-5.0); ALKALINE PHOSPHATASE 47 U/L (38-126); ANION GAP 11 (5-19); ASPARTATE AMINO TRANSFERASE 47 U/L (17-59); BILIRUBIN,DIRECT 0.3 mg/dL (0.0-0.4); BILIRUBIN,TOTAL 0.6 mg/dL (0.2-1.3); BLOOD UREA NITROGEN 24 mg/dL (7-20); CALCIUM 8.2 mg/dL (8.4-10.2); CARBON DIOXIDE 23 mmol/L (22-30); CHLORIDE 100 mmol/L (98-107); GLUCOSE 143 mg/dL (75-110); POTASSIUM 4.2 mmol/L (3.6-5.0); TOTAL PROTEIN 5.7 g/dL (6.3-8.2)
[2019-06-13 06:43] LABS: WHITE BLOOD COUNT 85.8 10^3/uL (4.0-10.5)
[2019-06-13 06:57] LABS: ABSOLUTE LYMPHOCYTES# (MANUAL) 56.6 10^3/uL (0.5-4.7); ABSOLUTE MONOCYTES # (MANUAL) 9.4 10^3/uL (0.1-1.4); BASOPHILS % (MANUAL) 0 % (0-2); EOSINOPHILS % (MANUAL) 3 % (0-6); LYMPHOCYTES % (MANUAL) 65 % (13-45); MONOCYTES % (MANUAL) 11 % (3-13); SEGMENTED NEUTROPHILS % (MAN) 20 % (42-78); TOTAL CELLS COUNTED 100; TOXIC GRANULATION SLIGHT; TOXIC VACUOLATION PRESENT
[2019-06-13 06:58] LABS: ANISOCYTOSIS 1+; HELMET CELLS SLIGHT; OVALOCYTES 1+; PLATELET COMMENT ADEQUATE; POIKILOCYTOSIS 1+; SCHISTOCYTES 1+; TEAR DROP CELLS SLIGHT
[2019-06-13] MEDS: INSULIN LISPRO 100 UNIT/ML 3 ML VIAL SUBCUT SCH ×4 (08:08→22:11)
[2019-06-13] MEDS: ACETAMINOPHEN 325 MG TABLET PO PRN ×2 (08:10→15:17)
[2019-06-13] MEDS ORDERED: ONDANSETRON HCL INJ/PF 4 MG/2 ML SDV IV PRN (08:30)
--- NOTE | 2019-06-13 09:20 | PDOC PROGRESS REPORT ---
Subjective Progress Note for:: 06/13/19 Subjective:: Patient only opens eyes briefly. He does respond to questions and denies any problems today. Daughter is at bedside. Nurses report that he has not eaten anything, only takes a few sips of water. Fluids were stopped due to respiratory congestion. Reason For Visit: ACUTE LEUKEMIA Physical Exam Vital Signs: Temp Pulse Resp BP Pulse Ox 102.7 F H 69 20 127/50 H 98 06/12/19 23:21 06/12/19 23:21 06/12/19 23:21 06/12/19 23:21 06/12/19 23:21 Intake & Output 06/12/19 06/13/19 06/14/19 06:59 06:59 06:59 Intake Total 1050 1472 Output Total 100 Balance 950 1472 Weight 99.3 kg 86.3 kg General appearance: PRESENT: mild distress Exam: Overweight, male. arouses only briefly. Head exam: PRESENT: normocephalic Respiratory exam: PRESENT: other - Audible rattle. Cardiovascular exam: PRESENT: other - heart sounds obscured. GI/Abdominal exam: PRESENT: soft. ABSENT: tenderness Extremities exam: ABSENT: pedal edema Skin exam: PRESENT: normal color Results Laboratory Results: 06/13/19 05:25 06/13/19 05:25 06/13/19 06/13/19 05:25 05:25 WBC 85.8 H* RBC 3.33 L Hgb 9.7 L Hct 30.6 L MCV 92 MCH 29.1 MCHC 31.7 L RDW 15.2 H Plt Count 161 Seg Neutrophils % Not Reportable Sodium 134.0 L Potassium 4.2 Chloride 100 Carbon Dioxide 23 Anion Gap 11 BUN 24 H Creatinine 1.15 Est GFR ( Amer) > 60 Glucose 143 H Calcium 8.2 L Magnesium 2.1 Total Bilirubin 0.6 AST 47 Alkaline Phosphatase 47 Total Protein 5.7 L Albumin 3.2 L 06/11/19 06/12/19 13:04 04:06 Troponin I 0.031 NT-Pro-B Natriuret Pep 2470 H Impressions: Abdomen/Pelvis CT 06/11/19 00:00 IMPRESSION: 1. Masslike consolidation with adjacent ground-glass opacity at the medial right lower lobe, may be secondary to acute infection/inflammation such as pneumonia versus neoplasm. Clinical correlation recommended. Evaluation with PET/ CT as clinically warranted. 2. Mediastinal and axillary adenopathy, may be secondary to known leukemia. 3. Cardiomegaly. IMPRESSION: 1. Abdominal, retroperitoneal, pelvic and inguinal adenopathy, may be secondary to known leukemia. 2. 1.7 x 1.3 cm hypodense splenic lesion, indeterminate. 3. 7 mm right ureteral calculus. No hydronephrosis. Bilateral nephrolithiasis. 4. Colonic diverticulosis. Chest CT 06/11/19 00:00 IMPRESSION: 1. Masslike consolidation with adjacent ground-glass opacity at the medial right lower lobe, may be secondary to acute infection/inflammation such as pneumonia versus neoplasm. Clinical correlation recommended. Evaluation with PET/ CT as clinically warranted. 2. Mediastinal and axillary adenopathy, may be secondary to known leukemia. 3. Cardiomegaly. IMPRESSION: 1. Abdominal, retroperitoneal, pelvic and inguinal adenopathy, may be secondary to known leukemia. 2. 1.7 x 1.3 cm hypodense splenic lesion, indeterminate. 3. 7 mm right ureteral calculus. No hydronephrosis. Bilateral nephrolithiasis. 4. Colonic diverticulosis. Head CT 06/11/19 13:23 IMPRESSION: CHRONIC CHANGES OF ATROPHY AND MICROVASCULAR ISCHEMIA. NO ACUTE PROCESS. EVIDENCE OF ACUTE STROKE: NO. 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 [facility] er, await Flow Cytometry to determine for sure if this is an acute leukemia or not. If this is an acute leukemia, patient is currently not clinically well enough to start any treatment. I have discussed this with his daughter. I have explained that I am very concerned that he may not survive this hospital admission, but only time will tell. (2) Diabetes Qualifiers: Diabetes mellitus type: type 2 Is this a current diagnosis for this admission?: No (3) Pneumonia Is this a current diagnosis for this admission?: Yes Plan: Fevers continue. He is on Rocephin and Levaquin. Repeat CXR has been ordered. I will also check ECHO to determine his LVEF. - Plan Summary Plan Summary: Hopefully, family will be able to get him to eat and drink some. His condition is guarded, but he is a DNR. Patient was also discussed with Dr. Duncan this morning.
--- NOTE | 2019-06-13 10:02 | PDOC PROGRESS REPORT ---
Subjective Progress Note for:: 06/13/19 Subjective:: 83 year old male history of diabetes mellitus moved from [place] 6 months ago brought in by family members with complaints of dizziness associated nausea and a decreased appetite is also mentioning about weight loss for the last few weeks. Work-up in the emergency room shows WBC of 88,000 with absolute lymphocytes of around 88% after discussion with her doctor as sought medical consult was called for admission and further management. Patient denies any fevers denies any cough denies any chest pains denies any vomiting diarrhea. Only complaints are dizziness and nausea. Is also complaining of decreased appetite weight loss but is not sure how much weight he lost. We do not have any previous records available. 06/12/[id number]-cger-old male admitted with elevated WBC count patient might have acute leukemia or chronic lymphocytic leukemia. CT chest was done along with CT abdomen pelvis which shows abdominal retroperitoneal pelvic and inguinal lymphadenopathy. Splenic lesion is seen present. Work-up for alpha-fetoprotein and flow cytology is pending. Patient is DNR/DNI. comfortably in be sleeping. 06/13 [id number]-old male admitted with elevated WBC it may be acute leukemia or chronic leukemia work-up in progress. CT scan of the chest suggestive of masslike lesion it can be neoplasm or pneumonia. He is having the spiking fevers. Started on Rocephin yesterday to add levo floxacillin today. oncology on board Reason For Visit: ACUTE LEUKEMIA Physical Exam Vital Signs: Temp Pulse Resp BP Pulse Ox 102.7 F H 78 22 H 154/52 H 83 L 06/13/19 07:40 06/13/19 07:40 06/13/19 07:40 06/13/19 07:40 06/13/19 07:40 Intake & Output 06/12/19 06/13/19 06/14/19 06:59 06:59 06:59 Intake Total 1050 1472 Output Total 100 Balance 950 1472 Weight 99.3 kg 86.3 kg General appearance: PRESENT: no acute distress, cooperative, obese Head exam: PRESENT: atraumatic Eye exam: PRESENT: PERRLA Mouth exam: PRESENT: moist, tongue midline Teeth exam: PRESENT: poor dentation Neck exam: ABSENT: carotid bruit, JVD, lymphadenopathy, thyromegaly Respiratory exam: PRESENT: decreased breath sounds Cardiovascular exam: PRESENT: RRR. ABSENT: diastolic murmur, rubs, systolic murmur GI/Abdominal exam: PRESENT: normal bowel sounds, soft. ABSENT: distended, guarding, mass, organolmegaly, rebound, tenderness Rectal exam: PRESENT: deferred Extremities exam: PRESENT: full ROM. ABSENT: calf tenderness, clubbing, pedal edema Neurological exam: PRESENT: alert, awake, oriented to person, oriented to place, oriented to time, oriented to situation, CN II-XII grossly intact. ABSENT: motor sensory deficit Psychiatric exam: PRESENT: appropriate affect, normal mood. ABSENT: homicidal ideation, suicidal ideation Results Laboratory Results: 06/13/19 05:25 06/13/19 05:25 06/13/19 06/13/19 05:25 05:25 WBC 85.8 H* RBC 3.33 L Hgb 9.7 L Hct 30.6 L MCV 92 MCH 29.1 MCHC 31.7 L RDW 15.2 H Plt Count 161 Seg Neutrophils % Not Reportable Sodium 134.0 L Potassium 4.2 Chloride 100 Carbon Dioxide 23 Anion Gap 11 BUN 24 H Creatinine 1.15 Est GFR ( Amer) > 60 Glucose 143 H Calcium 8.2 L Magnesium 2.1 Total Bilirubin 0.6 AST 47 Alkaline Phosphatase 47 Total Protein 5.7 L Albumin 3.2 L 06/11/19 06/12/19 13:04 04:06 Troponin I 0.031 NT-Pro-B Natriuret Pep 2470 H Impressions: Abdomen/Pelvis CT 06/11/19 00:00 IMPRESSION: 1. Masslike consolidation with adjacent ground-glass opacity at the medial right lower lobe, may be secondary to acute infection/inflammation such as pneumonia versus neoplasm. Clinical correlation recommended. Evaluation with PET/ CT as clinically warranted. 2. Mediastinal and axillary adenopathy, may be secondary to known leukemia. 3. Cardiomegaly. IMPRESSION: 1. Abdominal, retroperitoneal, pelvic and inguinal adenopathy, may be secondary to known leukemia. 2. 1.7 x 1.3 cm hypodense splenic lesion, indeterminate. 3. 7 mm right ureteral calculus. No hydronephrosis. Bilateral nephrolithiasis. 4. Colonic diverticulosis. Chest CT 06/11/19 00:00 IMPRESSION: 1. Masslike consolidation with adjacent ground-glass opacity at the medial right lower lobe, may be secondary to acute infection/inflammation such as pneumonia versus neoplasm. Clinical correlation recommended. Evaluation with PET/ CT as clinically warranted. 2. Mediastinal and axillary adenopathy, may be secondary to known leukemia. 3. Cardiomegaly. IMPRESSION: 1. Abdominal, retroperitoneal, pelvic and inguinal adenopathy, may be secondary to known leukemia. 2. 1.7 x 1.3 cm hypodense splenic lesion, indeterminate. 3. 7 mm right ureteral calculus. No hydronephrosis. Bilateral nephrolithiasis. 4. Colonic diverticulosis. Head CT 06/11/19 13:23 IMPRESSION: CHRONIC CHANGES OF ATROPHY AND MICROVASCULAR ISCHEMIA. NO ACUTE PROCESS. EVIDENCE OF ACUTE STROKE: NO. Assessment and Plan - Diagnosis (1) Acute leukemia Qualifiers: Leukemia Active/Remission status: without remission Qualified Code(s): C95. 00 - Acute leukemia of unspecified cell type not having achieved remission Is this a current diagnosis for this admission?: Yes Plan: 06/11/2019-patient is going to be admitted in the hospital for leukemia. Consultation with Dr. garibay was requested. Started on IV fluids as per her recommendations. CT abdomen/pelvis, CT chest with IV and p.o. contrast was requested. GI prophylaxis DVT prophylaxis was provided. Leukocyte lymphocyte panel lab test was requested. Patient was placed on a diabetic diet and insulin sliding scale before meals and at bedtime. 06/12/2019-patient admitted with elevated WBC count. Blood cultures work-up is p ending to see whether it is acute lymphocytic leukemia or chronic lymphocytic leukemia. As per Dr. Curtis recommendations patient is presently on IV fluids. CT abdomen pelvis along with CT chest indicates extensive lymphadenopathy. Splenic lesion was noticed. Flow cytometry results are pending. 06/13/2019-patient came in with elevated WBC count he count it was 85,000 today most likely he has a leukemia work-up in progress for to differentiate between acute versus chronic leukemia Dr. Mancera is following the patient. Patient also febrile from yesterday. CT scan shows masslike opacification most likely community-acquired pneumonia versus neoplasm. Presently on IV Rocephin and levo floxacillin. Blood cultures and sputum cultures are pending. (2) Diabetes Qualifiers: Diabetes mellitus type: type 2 Is this a current diagnosis for this admission?: No Plan: 06/11/2019-patient given the history of type 2 diabetes mellitus is taking Actos and metformin at home. To hold metformin and continue Actos started on blood sugar monitoring before meals and at bedtime with Humalog coverage and hemo globin A1c was requested. 06/12/2019-patient's blood sugar is 157 today. Presently on insulin sliding scale. At home he is on Actos and metformin to hold metformin during this hospital stay. Blood sugar monitoring before meals and at bedtime with insulin coverage. Hemoglobin A1c 7.5. 2018 patient blood sugar today is 162 stable. Presently on insulin sliding scale plan is to continue the present management. (3) DNR (do not resuscitate) Is this a current diagnosis for this admission?: Yes (4) Pneumonia Is this a current diagnosis for this admission?: Yes Plan: 06/13/2019-CT scan of the chest shows possible right middle lobe consolidation versus neoplasm. Patient is having the high fevers. No hypotension zaria is noticed. Presently on IV Rocephin 2 g daily and add IV levo floxacillin 40 mg IV daily. Lactic acid was requested blood cultures and urine cultures are pending. Plan is to repeat the chest x-ray today and continue the antibiotic therapy. It can be community-acquired pneumonia. Possible gram-positive to organisms responsible. - Time Time Spent with patient: 25-34 minutes Medications reviewed and adjusted accordingly: Yes Anticipated discharge: SNF
[2019-06-13] MEDS: LEVOFLOXACIN 750 MG/D5W RTU 750 MG/150 ML RTUPB IV SCH (10:57)
[2019-06-13] MEDS: ENOXAPARIN SODIUM INJ 40 MG/0.4 ML DISP.SYRIN SUBCUT SCH (10:57)
[2019-06-13] MEDS: HYDROXYUREA 500 MG CAPSULE PO SCH ×2 (10:58→22:06)
[2019-06-13] MEDS: PIOGLITAZONE HCL 15 MG TABLET PO SCH (10:58)
[2019-06-13] MEDS: PAROXETINE HCL 20 MG TABLET PO SCH (10:59)
--- NOTE | 2019-06-13 17:59 | RADIOLOGY REPORT (SQ) ---
EXAM DESCRIPTION: CHEST 2 VIEWS COMPLETED DATE/TIME: 06/13/2019 5:51 pm REASON FOR STUDY: pneumonia COMPARISON: None. EXAM PARAMETERS: NUMBER OF VIEWS: two views TECHNIQUE: Digital Frontal and Lateral radiographic views of the chest acquired. RADIATION DOSE: NA LIMITATIONS: none FINDINGS: LUNGS AND PLEURA: No opacities, masses or pneumothorax. No pleural effusion. MEDIASTINUM AND HILAR STRUCTURES: No masses or contour abnormalities. HEART AND VASCULAR STRUCTURES: Heart normal size. No evidence for failure. BONES: No acute findings. HARDWARE: None in the chest. OTHER: No other significant finding. IMPRESSION: NO ACUTE RADIOGRAPHIC FINDING IN THE CHEST. TECHNICAL DOCUMENTATION: JOB ID: [id number] [employer]- All Rights Reserved Reading location - IP/workstation name: [email or web address]
[2019-06-13] MEDS: CEFTRIAXONE 1 GM/D5W RTU 1 GM/50 ML RTUPB IV SCH (22:11)
[2019-06-13] MEDS: MORPHINE SULFATE 10 MG/ML INJ IV PRN (23:56)
[2019-06-14] MEDS ORDERED: FUROSEMIDE INJ/PF 40 MG/4 ML SDV IV ONE (01:10)
[2019-06-14] MEDS: MORPHINE SULFATE 10 MG/ML INJ IV PRN ×2 (04:48→11:36)
[2019-06-14 05:33] LABS: HEMATOCRIT 29.6 % (37.9-51.0); HEMOGLOBIN 9.6 g/dL (13.5-17.0); MEAN CORPUSCULAR HEMOGLOBIN 29.6 pg (27.0-33.4); MEAN CORPUSCULAR HGB CONC 32.4 g/dL (32.0-36.0); MEAN CORPUSCULAR VOLUME 91 fl (80-97); PLATELET COUNT 177 10^3/uL (150-450); RED BLOOD COUNT 3.24 10^6/uL (4.35-5.55); RED CELL DISTRIBUTION WIDTH 15.1 % (11.5-14.0)
[2019-06-14] MEDS: LEVOTHYROXINE SODIUM 0.025 MG TABLET PO SCH (05:41)
[2019-06-14] MEDS: PANTOPRAZOLE SODIUM 40 MG TABLET.DR PO SCH ×2 (05:41→16:26)
[2019-06-14 05:45] LABS: WHITE BLOOD COUNT 85.8 10^3/uL (4.0-10.5)
[2019-06-14 05:48] LABS: ALBUMIN 3.1 g/dL (3.5-5.0); ALKALINE PHOSPHATASE 44 U/L (38-126); ANION GAP 10 (5-19); ASPARTATE AMINO TRANSFERASE 48 U/L (17-59); BILIRUBIN,DIRECT 0.3 mg/dL (0.0-0.4); BILIRUBIN,TOTAL 0.5 mg/dL (0.2-1.3); BLOOD UREA NITROGEN 24 mg/dL (7-20); CALCIUM 8.2 mg/dL (8.4-10.2); CARBON DIOXIDE 24 mmol/L (22-30); CHLORIDE 98 mmol/L (98-107); GLUCOSE 180 mg/dL (75-110); POTASSIUM 4.2 mmol/L (3.6-5.0); TOTAL PROTEIN 5.7 g/dL (6.3-8.2)
[2019-06-14 06:22] LABS: BASOPHILS % (MANUAL) 0 % (0-2); EOSINOPHILS % (MANUAL) 0 % (0-6); MONOCYTES % (MANUAL) 0 % (3-13); SEGMENTED NEUTROPHILS % (MAN) 16 % (42-78); TOTAL CELLS COUNTED 100
[2019-06-14 06:23] LABS: TOXIC GRANULATION SLIGHT
[2019-06-14 06:25] LABS: ANISOCYTOSIS 1+; BURR CELLS SLIGHT; OVALOCYTES 1+; POIKILOCYTOSIS 1+; SCHISTOCYTES SLIGHT
[2019-06-14 06:26] LABS: PLATELET COMMENT ADEQUATE
--- NOTE | 2019-06-14 08:37 | PDOC PROGRESS REPORT ---
Subjective Progress Note for:: 06/14/19 Subjective:: Yesterday, patient seems to have more crackles and was more short of breath and was given Lasix and seems a little bit better per nursing today. But this is the first time I am seeing him so he still seems to have loud crackles that are audible without auscultation, I discussed his case with his daughter who is with him, we discussed that morphologically it looks like his CLL, but the flow cytometry will confirm this. Of note, she mentioned that he was seen by Dr. Leo Burch in [facility], phone number [phone], and he was told that he had leukocytosis last year, so he may have had a work-up done already. He just moved to this area in December of this year. But she notes that over the last few months prior to admission he was quite strong and mentally very sharp, and completely independent with all ADLs and IADLs. Today spent 45 minutes in discussion and coordination of care, discussed case with hospitalist team as well. Reason For Visit: ACUTE LEUKEMIA Physical Exam Vital Signs: Temp Pulse Resp BP Pulse Ox 100.4 F 82 21 H 165/53 H 94 06/13/19 23:51 06/13/19 23:51 06/13/19 23:51 06/13/19 23:51 06/13/19 23:51 Intake & Output 06/13/19 06/14/19 06/15/19 06:59 06:59 06:59 Intake Total 1472 700 Balance 1472 700 Weight 86.3 kg General appearance: PRESENT: no acute distress, well-developed, well-nourished Head exam: PRESENT: atraumatic, normocephalic Eye exam: PRESENT: conjunctiva pink, EOMI, PERRLA. ABSENT: scleral icterus Ear exam: PRESENT: normal external ear exam Mouth exam: PRESENT: moist, tongue midline Neck exam: ABSENT: carotid bruit, JVD, lymphadenopathy, thyromegaly Respiratory exam: PRESENT: clear to auscultation zeke. ABSENT: rales, rhonchi, wheezes Cardiovascular exam: PRESENT: RRR. ABSENT: diastolic murmur, rubs, systolic murmur Pulses: PRESENT: normal dorsalis pedis pul Vascular exam: PRESENT: normal capillary refill GI/Abdominal exam: PRESENT: normal bowel sounds, soft. ABSENT: distended, guarding, mass, organolmegaly, rebound, tenderness Rectal exam: PRESENT: deferred Extremities exam: PRESENT: full ROM. ABSENT: calf tenderness, clubbing, pedal edema Neurological exam: PRESENT: alert, awake, oriented to person, oriented to place, oriented to time, oriented to situation, CN II-XII grossly intact. ABSENT: motor sensory deficit Psychiatric exam: PRESENT: appropriate affect, normal mood. ABSENT: homicidal ideation, suicidal ideation Skin exam: PRESENT: dry, intact, warm. ABSENT: cyanosis, rash Results Laboratory Results: 06/14/19 04:20 06/14/19 04:20 06/13/19 06/14/19 06/14/19 10:15 04:20 04:20 WBC 85.8 H* RBC 3.24 L Hgb 9.6 L Hct 29.6 L MCV 91 MCH 29.6 MCHC 32.4 RDW 15.1 H Plt Count 177 Seg Neutrophils % Not Reportable Sodium 132.0 L Potassium 4.2 Chloride 98 Carbon Dioxide 24 Anion Gap 10 BUN 24 H Creatinine 1.15 Est GFR ( Amer) > 60 Glucose 180 H Lactic Acid 0.7 Calcium 8.2 L Magnesium 2.2 Total Bilirubin 0.5 AST 48 Alkaline Phosphatase 44 Total Protein 5.7 L Albumin 3.1 L 06/11/19 06/12/19 13:04 04:06 Troponin I 0.031 NT-Pro-B Natriuret Pep 2470 H Impressions: Abdomen/Pelvis CT 06/11/19 00:00 IMPRESSION: 1. Masslike consolidation with adjacent ground-glass opacity at the medial right lower lobe, may be secondary to acute infection/inflammation such as pneumonia versus neoplasm. Clinical correlation recommended. Evaluation with PET/ CT as clinically warranted. 2. Mediastinal and axillary adenopathy, may be secondary to known leukemia. 3. Cardiomegaly. IMPRESSION: 1. Abdominal, retroperitoneal, pelvic and inguinal adenopathy, may be secondary to known leukemia. 2. 1.7 x 1.3 cm hypodense splenic lesion, indeterminate. 3. 7 mm right ureteral calculus. No hydronephrosis. Bilateral nephrolithiasis. 4. Colonic diverticulosis. Chest CT 06/11/19 00:00 IMPRESSION: 1. Masslike consolidation with adjacent ground-glass opacity at the medial right lower lobe, may be secondary to acute infection/inflammation such as pneumonia versus neoplasm. Clinical correlation recommended. Evaluation with PET/ CT as clinically warranted. 2. Mediastinal and axillary adenopathy, may be secondary to known leukemia. 3. Cardiomegaly. IMPRESSION: 1. Abdominal, retroperitoneal, pelvic and inguinal adenopathy, may be secondary to known leukemia. 2. 1.7 x 1.3 cm hypodense splenic lesion, indeterminate. 3. 7 mm right ureteral calculus. No hydronephrosis. Bilateral nephrolithiasis. 4. Colonic diverticulosis. Head CT 06/11/19 13:23 IMPRESSION: CHRONIC CHANGES OF ATROPHY AND MICROVASCULAR ISCHEMIA. NO ACUTE PROCESS. EVIDENCE OF ACUTE STROKE: NO. Chest X-Ray 06/13/19 08:15 IMPRESSION: NO ACUTE RADIOGRAPHIC FINDING IN THE CHEST. Assessment & Plan - Diagnosis (1) CLL (chronic lymphocytic leukemia) Is this a current diagnosis for this admission?: Yes Plan: Probably a CLL rather than in AMl/ALL per pathology. I have given information to Dr. López about his previous physician to get records. (2) Pneumonia Qualifiers: Pneumonia type: due to unspecified organism Laterality: bilateral Lung location: lower lobe of lung Qualified Code(s): J18.1 - Lobar pneumonia, unspecified organism Is this a current diagnosis for this admission?: Yes Plan: He probably does have a pneumonia, as he does have the likely CLL he is certainly a nidus for infection, discussed with Dr. Hamilton of the hospitalist team to consider broadening the coverage a little bit. He will look at the patient and imaging and decide. - Time Time Spent with patient: 35 or more minutes - Inpatient Certification Based on my medical assessment, after consideration of the patient's comorbidities, presenting symptoms, or acuity I expect that the services needed warrant INPATIENT care.: Yes I certify that my determination is in accordance with my understanding of Medicare's requirements for reasonable and necessary INPATIENT services [42 CFR 412.3e].: Yes Medical Necessity: Need for IV Antibiotics, Risk of Complication if Not Cared For in Hospital
[2019-06-14] MEDS: ENOXAPARIN SODIUM INJ 40 MG/0.4 ML DISP.SYRIN SUBCUT SCH (09:18)
[2019-06-14] MEDS: INSULIN LISPRO 100 UNIT/ML 3 ML VIAL SUBCUT SCH ×4 (09:18→21:49)
[2019-06-14] MEDS: LEVOFLOXACIN 750 MG/D5W RTU 750 MG/150 ML RTUPB IV SCH (09:19)
[2019-06-14] MEDS: PAROXETINE HCL 20 MG TABLET PO SCH (09:20)
[2019-06-14] MEDS: HYDROXYUREA 500 MG CAPSULE PO SCH ×2 (09:20→18:08)
[2019-06-14] MEDS: PIOGLITAZONE HCL 15 MG TABLET PO SCH (09:21)
[2019-06-14] MEDS ORDERED: VANCOMYCIN HCL 0 MG in DEXTROSE 5%-WATER 250 ML IV NR (12:00)
[2019-06-14] MEDS ORDERED: METHYLPREDNISOLONE INJ 125 MG/2 ML SDV IV ONE (12:02)
--- NOTE | 2019-06-14 12:08 | PDOC PROGRESS REPORT ---
Subjective Progress Note for:: 06/14/19 Subjective:: No adverse events overnight. He still running a low-grade fever today. He is got very coarse breath sounds. He said he is not coughing anything up. He said he has had these breath sounds for "quite a while." He notes that he has had treatment for his elevated white blood cell count but he does not know what treatment he has had. Reason For Visit: ACUTE LEUKEMIA Physical Exam Vital Signs: Temp Pulse Resp BP Pulse Ox 100.8 F H 74 18 131/46 H 92 06/14/19 07:11 06/14/19 07:11 06/14/19 07:11 06/14/19 07:11 06/14/19 07:11 Intake & Output 06/13/19 06/14/19 06/15/19 06:59 06:59 06:59 Intake Total 1472 700 Balance 1472 700 Weight 86.3 kg General appearance: PRESENT: cooperative, disheveled, mild distress, obese Respiratory exam: PRESENT: crackles, prolonged expiratory phas, rhonchi, symmetrical, unlabored. ABSENT: accessory muscle use, chest wall tenderness, tachypnea, wheezes Cardiovascular exam: PRESENT: RRR, +S1, +S2 Pulses: PRESENT: normal carotid pulses Vascular exam: PRESENT: normal capillary refill GI/Abdominal exam: PRESENT: normal bowel sounds, soft. ABSENT: distended, guarding, rebound, tenderness Extremities exam: ABSENT: clubbing, pedal edema Musculoskeletal exam: PRESENT: normal inspection. ABSENT: deformity Neurological exam: PRESENT: alert, awake, oriented to person, oriented to place, oriented to situation Psychiatric exam: PRESENT: flat affect Skin exam: PRESENT: dry, warm Results Laboratory Results: 06/14/19 04:20 06/14/19 04:20 06/14/19 06/14/19 04:20 04:20 WBC 85.8 H* RBC 3.24 L Hgb 9.6 L Hct 29.6 L MCV 91 MCH 29.6 MCHC 32.4 RDW 15.1 H Plt Count 177 Seg Neutrophils % Not Reportable Sodium 132.0 L Potassium 4.2 Chloride 98 Carbon Dioxide 24 Anion Gap 10 BUN 24 H Creatinine 1.15 Est GFR ( Amer) > 60 Glucose 180 H Calcium 8.2 L Magnesium 2.2 Total Bilirubin 0.5 AST 48 Alkaline Phosphatase 44 Total Protein 5.7 L Albumin 3.1 L 06/11/19 06/12/19 13:04 04:06 Troponin I 0.031 NT-Pro-B Natriuret Pep 2470 H Impressions: Abdomen/Pelvis CT 06/11/19 00:00 IMPRESSION: 1. Masslike consolidation with adjacent ground-glass opacity at the medial right lower lobe, may be secondary to acute infection/inflammation such as pneumonia versus neoplasm. Clinical correlation recommended. E valuation with PET/ CT as clinically warranted. 2. Mediastinal and axillary adenopathy, may be secondary to known leukemia. 3. Cardiomegaly. IMPRESSION: 1. Abdominal, retroperitoneal, pelvic and inguinal adenopathy, may be secondary to known leukemia. 2. 1.7 x 1.3 cm hypodense splenic lesion, indeterminate. 3. 7 mm right ureteral calculus. No hydronephrosis. Bilateral nephrolithiasis. 4. Colonic diverticulosis. Chest CT 06/11/19 00:00 IMPRESSION: 1. Masslike consolidation with adjacent ground-glass opacity at the medial right lower lobe, may be secondary to acute infection/inflammation such as pneumonia versus neoplasm. Clinical correlation recommended. Evaluation with PET/ CT as clinically warranted. 2. Mediastinal and axillary adenopathy, may be secondary to known leukemia. 3. Cardiomegaly. IMPRESSION: 1. Abdominal, retroperitoneal, pelvic and inguinal adenopathy, may be secondary to known leukemia. 2. 1.7 x 1.3 cm hypodense splenic lesion, indeterminate. 3. 7 mm right ureteral calculus. No hydronephrosis. Bilateral nephrolithiasis . 4. Colonic diverticulosis. Head CT 06/11/19 13:23 IMPRESSION: CHRONIC CHANGES OF ATROPHY AND MICROVASCULAR ISCHEMIA. NO ACUTE PROCESS. EVIDENCE OF ACUTE STROKE: NO. Chest X-Ray 06/13/19 08:15 IMPRESSION: NO ACUTE RADIOGRAPHIC FINDING IN THE CHEST. Assessment and Plan - Diagnosis (1) CLL (chronic lymphocytic leukemia) Is this a current diagnosis for this admission?: Yes Plan: Oncology believes that this is likely CLL, and have him on hydroxyurea. Further testing is still pending. (2) Pneumonia Qualifiers: Pneumonia type: due to unspecified organism Laterality: bilateral Lung location: lower lobe of lung Qualified Code(s): J18.1 - Lobar pneumonia, unspecified organism Is this a current diagnosis for this admission?: Yes Plan: He has been on antibiotics for a couple of days and he looks like he is still not doing well from a respiratory standpoint. I have changed his antibiotics to vancomycin and meropenem, and I have added some steroids. He does not appear otherwise fluid overloaded. He got some Lasix earlier in his hospitalization and did not really respond to it. He has something producing secretions, however. Hopefully the steroids will help with whatever the underlying process is driving this, if this is a pneumonitis. - Time Time Spent with patient: 25-34 minutes
[2019-06-14] MEDS ORDERED: VANCOMYCIN HCL 1,500 MG in DEXTROSE 5%-WATER 250 ML IV ONE (13:00)
[2019-06-14] MEDS: ALLOPURINOL 300 MG TABLET PO SCH (13:23)
[2019-06-14] MEDS: MEROPENEM 1 GM in NORMAL SALINE 50 ML IV SCH ×2 (15:47→21:49)
[2019-06-14 16:03] LABS: APPEARANCE,URINE SLIGHTLY-CLOUDY; BILIRUBIN,URINE NEGATIVE (NEGATIVE); COLOR,URINE YELLOW; GLUCOSE, URINE 150 mg/dL (NEGATIVE); KETONES,URINE NEGATIVE (NEGATIVE); LEUKOCYTE ESTERASE,URINE NEGATIVE (NEGATIVE); NITRITE,URINE NEGATIVE (NEGATIVE); PROTEIN,URINE 100 mg/dL (NEGATIVE); URINE SPECIFIC GRAVITY 1.023
[2019-06-14] MEDS: METHYLPREDNISOLONE INJ 40 MG/1 ML SDV IV SCH ×2 (18:08→22:58)
[2019-06-14] MEDS: VANCOMYCIN HCL 750 MG in DEXTROSE 5%-WATER 250 ML IV SCH (22:59)
[2019-06-15] MEDS: METHYLPREDNISOLONE INJ 40 MG/1 ML SDV IV SCH ×3 (05:32→21:31)
[2019-06-15] MEDS: LEVOTHYROXINE SODIUM 0.025 MG TABLET PO SCH (05:32)
[2019-06-15] MEDS: PANTOPRAZOLE SODIUM 40 MG TABLET.DR PO SCH ×2 (05:32→17:13)
[2019-06-15] MEDS: MEROPENEM 1 GM in NORMAL SALINE 50 ML IV SCH ×3 (05:32→21:32)
[2019-06-15] MEDS: INSULIN LISPRO 100 UNIT/ML 3 ML VIAL SUBCUT SCH ×4 (07:56→21:31)
--- NOTE | 2019-06-15 08:05 | PDOC PROGRESS REPORT ---
Subjective Progress Note for:: 06/15/19 Subjective:: Patient is sitting up and has eaten his entire breakfast this morning. He is talkative, but does not make much sense. He is pleasantly confused, but states that he is feeling better. He states that he had a good dinner last night, but cannot remember what he ate. Nurses report that he is unsteady on his feet, but no other new concerns. Reason For Visit: ACUTE LEUKEMIA Physical Exam Vital Signs: Temp Pulse Resp BP Pulse Ox 99.3 F 73 19 142/58 H 95 06/14/19 23:23 06/14/19 23:23 06/14/19 23:23 06/14/19 23:23 06/15/19 02:14 Intake & Output 06/14/19 06/15/19 06/16/19 06:59 06:59 06:59 Intake Total 700 2157 Output Total 350 Balance 700 1807 Weight 82.4 kg General appearance: PRESENT: no acute distress, well-developed, well-nourished Head exam: PRESENT: normocephalic Respiratory exam: PRESENT: clear to auscultation zeke, unlabored Cardiovascular exam: PRESENT: RRR Neurological exam: PRESENT: alert, awake. ABSENT: oriented to person, oriented to place, oriented to time, oriented to situation Psychiatric exam: PRESENT: other - pleasantly confused. Skin exam: PRESENT: normal color Results Laboratory Results: 06/14/19 04:20 06/14/19 04:20 06/14/19 15:45 Urine Color YELLOW Urine Appearance SLIGHTLY-CLOUDY Urine pH 5.0 Ur Specific [place] 1.023 Urine Protein 100 H Urine Glucose (UA) 150 H Urine Ketones NEGATIVE Urine Blood LARGE H Urine Nitrite NEGATIVE Ur Leukocyte Esterase NEGATIVE Urine WBC (Auto) 2 Urine RBC (Auto) 5 06/11/19 06/12/19 13:04 04:06 Troponin I 0.031 NT-Pro-B Natriuret Pep 2470 H Impressions: Abdomen/Pelvis CT 06/11/19 00:00 IMPRESSION: 1. Masslike consolidation with adjacent ground-glass opacity at the medial right lower lobe, may be secondary to acute infection/inflammation such as pneumonia versus neoplasm. Clinical correlation recommended. Evalua tion with PET/ CT as clinically warranted. 2. Mediastinal and axillary adenopathy, may be secondary to known leukemia. 3. Cardiomegaly. IMPRESSION: 1. Abdominal, retroperitoneal, pelvic and inguinal adenopathy, may be secondary to known leukemia. 2. 1.7 x 1.3 cm hypodense splenic lesion, indeterminate. 3. 7 mm right ureteral calculus. No hydronephrosis. Bilateral nephrolithiasis. 4. Colonic diverticulosis. Chest CT 06/11/19 00:00 IMPRESSION: 1. Masslike consolidation with adjacent ground-glass opacity at the medial right lower lobe, may be secondary to acute infection/inflammation such as pneumonia versus neoplasm. Clinical correlation recommended. Evaluation with PET/ CT as clinically warranted. 2. Mediastinal and axillary adenopathy, may be secondary to known leukemia. 3. Cardiomegaly. IMPRESSION: 1. Abdominal, retroperitoneal, pelvic and inguinal adenopathy, may be secondary to known leukemia. 2. 1.7 x 1.3 cm hypodense splenic lesion, indeterminate. 3. 7 mm right ureteral calculus. No hydronephrosis. Bilateral nephrolithiasis. 4. Colonic diverticulosis. Head CT 06/11/19 13:23 IMPRESSION: CHRONIC CHANGES OF ATROPHY AND MICROVASCULAR ISCHEMIA. NO ACUTE PROCESS. EVIDENCE OF ACUTE STROKE: NO. Chest X-Ray 06/13/19 08:15 IMPRESSION: NO ACUTE RADIOGRAPHIC FINDING IN THE CHEST. Assessment & Plan - Diagnosis (1) Acute leukemia Qualifiers: Leukemia Active/Remission status: without remission Qualified Code(s): C95.00 - Acute leukemia of unspecified cell type not having achieved remission Is this a current diagnosis for this admission?: Yes Plan: This appears to be a chronic leukemia. His blood counts have remained very stable. I will stop the Hydrea. I will continue Allopurinol for now, but this does NOT need to be continued as outpatient. I will be happy to follow his counts as outpatient. (2) Diabetes Qualifiers: Diabetes mellitus type: type 2 Is this a current diagnosis for this admission?: No (3) Pneumonia Qualifiers: Pneumonia type: due to unspecified organism Laterality: bilateral Lung location: lower lobe of lung Qualified Code(s): J18.1 - Lobar pneumonia, unspecified organism Is this a current diagnosis for this admission?: Yes Plan: Antibiotics were changed yesterday. He is doing much better today. Low-grade fever only yesterday. Continue current antibiotics. - Plan Summary Plan Summary: I discussed his care with his daughter Noa. I would like to see him stay in the hospital at least 1 more day. I have encouraged him to walk in [place] with staff. Noa will speak with radiology services manager today about further help at home. I am still trying to reach Dr. Loredo in [place] for old records.
[2019-06-15] MEDS: ENOXAPARIN SODIUM INJ 40 MG/0.4 ML DISP.SYRIN SUBCUT SCH (09:59)
[2019-06-15] MEDS: PIOGLITAZONE HCL 15 MG TABLET PO SCH (09:59)
[2019-06-15] MEDS: ALLOPURINOL 300 MG TABLET PO SCH (09:59)
[2019-06-15] MEDS: VANCOMYCIN HCL 750 MG in DEXTROSE 5%-WATER 250 ML IV SCH ×2 (10:00→22:10)
[2019-06-15] MEDS: PAROXETINE HCL 20 MG TABLET PO SCH (10:00)
[2019-06-15 12:33] LABS: ABSOLUTE LYMPHOCYTES# (MANUAL) 72.1 10^3/uL (0.5-4.7); LYMPHOCYTES % (MANUAL) 83 % (13-45)
[2019-06-15 12:37] LABS: PATH REVIEW PATHOLOGIST REVIEWED
--- NOTE | 2019-06-15 16:44 | PDOC PROGRESS REPORT ---
Subjective Progress Note for:: 06/15/19 Subjective:: No adverse events overnight. He said he is feeling a lot better today. He is been able to come off oxygen. He is getting restless and wants to get up and walk around some. No fevers overnight. Reason For Visit: ACUTE LEUKEMIA Physical Exam Vital Signs: Temp Pulse Resp BP Pulse Ox 97.7 F 68 20 142/53 H 96 06/15/19 15:14 06/15/19 15:14 06/15/19 15:14 06/15/19 15:14 06/15/19 15:14 Intake & Output 06/14/19 06/15/19 06/16/19 06:59 06:59 06:59 Intake Total 700 2157 1020 Output Total 350 225 Balance 700 1807 795 Weight 82.4 kg General appearance: PRESENT: cooperative, disheveled, no apparent distress, obese Respiratory exam: PRESENT: rhonchi, symmetrical, unlabored. ABSENT: accessory muscle use, crackles, prolonged expiratory phase, chest wall tenderness, tachypnea, wheezes Cardiovascular exam: PRESENT: RRR, +S1, +S2 Pulses: PRESENT: normal carotid pulses Vascular exam: PRESENT: normal capillary refill GI/Abdominal exam: PRESENT: normal bowel sounds, soft. ABSENT: distended, guarding, rebound, tenderness Extremities exam: ABSENT: clubbing, pedal edema Musculoskeletal exam: PRESENT: normal inspection. ABSENT: deformity Neurological exam: PRESENT: alert, awake, oriented to person, oriented to place, oriented to situation Psychiatric exam: PRESENT: flat affect Skin exam: PRESENT: dry, warm Results Laboratory Results: 06/14/19 04:20 06/14/19 04:20 06/11/19 06/12/19 13:04 04:06 Troponin I 0.031 NT-Pro-B Natriuret Pep 2470 H Impressions: Abdomen/Pelvis CT 06/11/19 00:00 IMPRESSION: 1. Masslike consolidation with adjacent ground-glass opacity at the medial right lower lobe, may be secondary to acute infection/inflammation such as pneumonia versus neoplasm. Clinical correlation recommended. Evaluation with PET/ CT as clinically warranted. 2. Mediastinal and axillary adenopathy, may be secondary to known leukemia. 3. Cardiomegaly. IMPRESSION: 1. Abdominal, retroperitoneal, pelvic and inguinal adenopathy, may be secondary to known leukemia. 2. 1.7 x 1.3 cm hypodense splenic lesion, indeterminate. 3. 7 mm right ureteral calculus. No hydronephrosis. Bilateral nephrolithiasis. 4. Colonic diverticulosis. Chest CT 06/11/19 00:00 IMPRESSION: 1. Masslike consolidation with adjacent ground-glass opacity at the medial right lower lobe, may be secondary to acute infection/inflammation such as pneumonia versus neoplasm. Clinical correlation recommended. Evaluation with PET/ CT as clinically warranted. 2. Mediastinal and axillary adenopathy, may be secondary to known leukemia. 3. Cardiomegaly. IMPRESSION: 1. Abdominal, retroperitoneal, pelvic and inguinal adenopathy, may be secondary to known leukemia. 2. 1.7 x 1.3 cm hypodense splenic lesion, indeterminate. 3. 7 mm right ureteral calculus. No hydronephrosis. Bilateral nephrolithiasis. 4. Colonic diverticulosis. Head CT 06/11/19 13:23 IMPRESSION: CHRONIC CHANGES OF ATROPHY AND MICROVASCULAR ISCHEMIA. NO ACUTE PROCESS. EVIDENCE OF ACUTE STROKE: NO. Chest X-Ray 06/13/19 08:15 IMPRESSION: NO ACUTE RADIOGRAPHIC FINDING IN THE CHEST. Assessment and Plan - Diagnosis (1) CLL (chronic lymphocytic leukemia) Is this a current diagnosis for this admission?: Yes Plan: Oncology believes that this is likely CLL, and have him on hydroxyurea. Further testing is still pending. (2) Pneumonia Qualifiers: Pneumonia type: due to unspecified organism Laterality: bilateral Lung location: lower lobe of lung Qualified Code(s): J18.1 - Lobar pneumonia, unspecified organism Is this a current diagnosis for this admission?: Yes Plan: We change his antibiotics yesterday and increase the spectrum, but we also started some steroids. He has improved substantially today. His chest sounds a lot better, he looks more comfortable, and he is off oxygen. Were going to try to ambulate him and he seems excited about that. I am not sure which had more of the effect, the antibiotics of the steroids. What ever the case, whenever he is discharged we will likely give him a few more days of some prednisone. - Time Time Spent with patient: 15-24 minutes
[2019-06-15] MEDS: MORPHINE SULFATE 10 MG/ML INJ IV PRN (22:11)
[2019-06-16] MEDS ORDERED: DIAZEPAM INJ 10 MG/2 ML DISP.SYRIN IV ONE (00:10)
[2019-06-16] MEDS: LEVOTHYROXINE SODIUM 0.025 MG TABLET PO SCH (06:26)
[2019-06-16] MEDS: MEROPENEM 1 GM in NORMAL SALINE 50 ML IV SCH ×3 (06:26→21:24)
[2019-06-16] MEDS: METHYLPREDNISOLONE INJ 40 MG/1 ML SDV IV SCH (06:26)
[2019-06-16] MEDS: PANTOPRAZOLE SODIUM 40 MG TABLET.DR PO SCH ×2 (06:26→17:42)
--- NOTE | 2019-06-16 07:25 | PDOC PROGRESS REPORT ---
Subjective Progress Note for:: 06/16/19 Subjective:: Patient remains pleasantly confused. He had a fall last night, but berry not appear to have any significant injury. He is again trying to get up out of the bed this morning. He is asking for a hole to park his car. Reason For Visit: ACUTE LEUKEMIA Physical Exam Vital Signs: Temp Pulse Resp BP Pulse Ox 97.3 F 72 20 142/65 H 96 06/15/19 23:55 06/15/19 23:55 06/15/19 23:55 06/15/19 23:55 06/15/19 23:55 Intake & Output 06/15/19 06/16/19 06/17/19 06:59 06:59 06:59 Intake Total 2157 2908 Output Total 350 1000 Balance 1807 1908 Weight 82.4 kg 84 kg General appearance: PRESENT: well-developed, well-nourished Head exam: PRESENT: normocephalic Respiratory exam: PRESENT: clear to auscultation zeke, unlabored Cardiovascular exam: PRESENT: RRR GI/Abdominal exam: PRESENT: soft. ABSENT: tenderness Neurological exam: PRESENT: alert, altered. ABSENT: oriented to person, oriente d to place, oriented to time, oriented to situation Psychiatric exam: PRESENT: appropriate affect Focused psych exam: PRESENT: restlessness Skin exam: PRESENT: normal color Results Laboratory Results: 06/14/19 04:20 06/14/19 04:20 06/11/19 06/12/19 13:04 04:06 Troponin I 0.031 NT-Pro-B Natriuret Pep 2470 H Impressions: Abdomen/Pelvis CT 06/11/19 00:00 IMPRESSION: 1. Masslike consolidation with adjacent ground-glass opacity at the medial right lower lobe, may be secondary to acute infection/inflammation such as pneumonia versus neoplasm. Clinical correlation recommended. Evaluation with PET/ CT as clinically warranted. 2. Mediastinal and axillary adenopathy, may be secondary to known leukemia. 3. Cardiomegaly. IMPRESSION: 1. Abdominal, retroperitoneal, pelvic and inguinal adenopathy, may be secondary to known leukemia. 2. 1.7 x 1.3 cm hypodense splenic lesion, indeterminate. 3. 7 mm right ureteral calculus. No hydronephrosis. Bilateral nephrolithiasis. 4. Colonic diverticulosis. Chest CT 06/11/19 00:00 IMPRESSION: 1. Masslike consolidation with adjacent ground-glass opacity at the medial right lower lobe, may be secondary to acute infection/inflammation such as pneumonia versus neoplasm. Clinical correlation recommended. Evaluation with PET/ CT as clinically warranted. 2. Mediastinal and axillary adenopathy, may be secondary to known leukemia. 3. Cardiomegaly. IMPRESSION: 1. Abdominal, retroperitoneal, pelvic and inguinal adenopathy, may be secondary to known leukemia. 2. 1.7 x 1.3 cm hypodense splenic lesion, indeterminate. 3. 7 mm right ureteral calculus. No hydronephrosis. Bilateral nephrolithiasis. 4. Colonic diverticulosis. Head CT 06/11/19 13:23 IMPRESSION: CHRONIC CHANGES OF ATROPHY AND MICROVASCULAR ISCHEMIA. NO ACUTE PROCESS. EVIDENCE OF ACUTE STROKE: NO. Chest X-Ray 06/13/19 08:15 IMPRESSION: NO ACUTE RADIOGRAPHIC FINDING IN THE CHEST. Assessment & Plan - Diagnosis (1) Acute leukemia Qualifiers: Leukemia Active/Remission status: without remission Qualified Code(s): C95.00 - Acute leukemia of unspecified cell type not having achieved remission Is this a current diagnosis for this admission?: Yes Plan: No recent CBCs, but they have been stable for several days. Hydrea has been stopped. (2) Diabetes Qualifiers: Diabetes mellitus type: type 2 Is this a current diagnosis for this admission?: No (3) Pneumonia Qualifiers: Pneumonia type: due to unspecified organism Laterality: bilateral Lung location: lower lobe of lung Qualified Code(s): J18.1 - Lobar pneumonia, unspecified organism Is this a current diagnosis for this admission?: Yes Plan: Now afebrile. Continue current antibiotics. All cultures are NGTD. - Plan Summary Plan Summary: I will be happy to follow him as outpatient.
[2019-06-16] MEDS: INSULIN LISPRO 100 UNIT/ML 3 ML VIAL SUBCUT SCH ×4 (08:12→21:24)
[2019-06-16] MEDS: VANCOMYCIN HCL 750 MG in DEXTROSE 5%-WATER 250 ML IV SCH (10:23)
[2019-06-16] MEDS: PIOGLITAZONE HCL 15 MG TABLET PO SCH (10:23)
[2019-06-16] MEDS: PAROXETINE HCL 20 MG TABLET PO SCH (10:23)
[2019-06-16] MEDS: ENOXAPARIN SODIUM INJ 40 MG/0.4 ML DISP.SYRIN SUBCUT SCH (10:34)
[2019-06-16] MEDS: ALLOPURINOL 300 MG TABLET PO SCH (10:34)
[2019-06-16 10:41] LABS: VANCOMYCIN,TROUGH < 5.0 ug/mL (5.0-20.0)
[2019-06-16 10:53] LABS: ALBUMIN 3.1 g/dL (3.5-5.0); ALKALINE PHOSPHATASE 53 U/L (38-126); ANION GAP 11 (5-19); ASPARTATE AMINO TRANSFERASE 60 U/L (17-59); BILIRUBIN,DIRECT 0.4 mg/dL (0.0-0.4); BILIRUBIN,TOTAL 0.7 mg/dL (0.2-1.3); BLOOD UREA NITROGEN 42 mg/dL (7-20); CARBON DIOXIDE 23 mmol/L (22-30); CHLORIDE 102 mmol/L (98-107); GLUCOSE 239 mg/dL (75-110); POTASSIUM 4.1 mmol/L (3.6-5.0); TOTAL PROTEIN 5.9 g/dL (6.3-8.2)
[2019-06-16 10:56] LABS: HEMATOCRIT 32.4 % (37.9-51.0); HEMOGLOBIN 10.2 g/dL (13.5-17.0); MEAN CORPUSCULAR HEMOGLOBIN 28.7 pg (27.0-33.4); MEAN CORPUSCULAR HGB CONC 31.5 g/dL (32.0-36.0); MEAN CORPUSCULAR VOLUME 91 fl (80-97); PLATELET COUNT 251 10^3/uL (150-450); RED BLOOD COUNT 3.55 10^6/uL (4.35-5.55); RED CELL DISTRIBUTION WIDTH 15.8 % (11.5-14.0)
[2019-06-16 11:23] LABS: WHITE BLOOD COUNT 92.6 10^3/uL (4.0-10.5)
[2019-06-16 11:27] LABS: ABSOLUTE LYMPHOCYTES# (MANUAL) 84.3 10^3/uL (0.5-4.7); ABSOLUTE MONOCYTES # (MANUAL) 0.9 10^3/uL (0.1-1.4); BASOPHILS % (MANUAL) 0 % (0-2); EOSINOPHILS % (MANUAL) 0 % (0-6); LYMPHOCYTES % (MANUAL) 91 % (13-45); MONOCYTES % (MANUAL) 1 % (3-13); SEGMENTED NEUTROPHILS % (MAN) 8 % (42-78); TOTAL CELLS COUNTED 100
[2019-06-16 11:28] LABS: ANISOCYTOSIS SLIGHT; BURR CELLS SLIGHT; PLATELET COMMENT ADEQUATE; POIKILOCYTOSIS SLIGHT; POLYCHROMASIA SLIGHT; SMUDGE CELLS PRESENT
[2019-06-16] MEDS ORDERED: VANCOMYCIN HCL 500 MG in DEXTROSE 5%-WATER 100 ML IV ONE (12:00)
--- NOTE | 2019-06-16 16:51 | PDOC PROGRESS REPORT ---
Subjective Progress Note for:: 06/16/19 Subjective:: He apparently had a fall last night but has not sustained any apparent injury. He is not complaining of any pain. His mental status is abnormal, and when I asked him how he fell last night he said that he had been trying to do too much work. When I asked him what kind of work he was doing, he said that he was trying to put away some [place] decorations and sometimes he helps the [employer]. He apparently told Dr. López he needed a hole to park his tractor in. His breathing appears comfortable on room air. He is been afebrile. Reason For Visit: ACUTE LEUKEMIA Physical Exam Vital Signs: Temp Pulse Resp BP Pulse Ox 97.4 F 65 19 137/81 H 96 06/16/19 15:06 06/16/19 15:06 06/16/19 15:06 06/16/19 15:06 06/16/19 15:06 Intake & Output 06/15/19 06/16/19 06/17/19 06:59 06:59 06:59 Intake Total 2157 2908 537 Output Total 350 1000 Balance 1807 1908 537 Weight 82.4 kg 84 kg General appearance: PRESENT: cooperative, disheveled, no apparent distress, obese Respiratory exam: PRESENT: Diminished, symmetrical, unlabored. ABSENT: accessory muscle use, crackles, prolonged expiratory phase, chest wall tenderness, rhonchi, tachypnea, wheezes Cardiovascular exam: PRESENT: RRR, +S1, +S2 Pulses: PRESENT: normal carotid pulses Vascular exam: PRESENT: normal capillary refill GI/Abdominal exam: PRESENT: normal bowel sounds, soft. ABSENT: distended, guarding, rebound, tenderness Extremities exam: ABSENT: clubbing, pedal edema Musculoskeletal exam: PRESENT: normal inspection. ABSENT: deformity Neurological exam: PRESENT: alert, awake, oriented to person. ABSENT: oriented to place, oriented to situation Psychiatric exam: PRESENT: flat affect Skin exam: PRESENT: dry, warm Results Laboratory Results: 06/16/19 09:36 06/16/19 09:36 06/16/19 06/16/19 06/16/19 09:36 09:36 09:36 WBC 92.6 H* RBC 3.55 L Hgb 10.2 L Hct 32.4 L MCV 91 MCH 28.7 MCHC 31.5 L RDW 15.8 H Plt Count 251 Seg Neutrophils % Not Reportable Sodium 136.2 L Potassium 4.1 Chloride 102 Carbon Dioxide 23 Anion Gap 11 BUN 42 H Creatinine 0.95 0.95 Est GFR ( Amer) > 60 > 60 Glucose 239 H Calcium 9.0 Total Bilirubin 0.7 AST 60 H Alkaline Phosphatase 53 Total Protein 5.9 L Albumin 3.1 L 06/11/19 06/12/19 13:04 04:06 Troponin I 0.031 NT-Pro-B Natriuret Pep 2470 H Impressions: Abdomen/Pelvis CT 06/11/19 00:00 IMPRESSION: 1. Masslike consolidation with adjacent ground-glass opacity at the medial right lower lobe, may be secondary to acute infection/inflammation such as pneumonia versus neoplasm. Clinical correlation recommended. Evaluation with PET/ CT as clinically warranted. 2. Mediastinal and axillary adenopathy, may be secondary to known leukemia. 3. Cardiomegaly. IMPRESSION: 1. Abdominal, retroperitoneal, pelvic and inguinal adenopathy, may be secondary to known leukemia. 2. 1.7 x 1.3 cm hypodense splenic lesion, indeterminate. 3. 7 mm right ureteral calculus. No hydronephrosis. Bilateral nephrolithiasis. 4. Colonic diverticulosis. Chest CT 06/11/19 00:00 IMPRESSION: 1. Masslike consolidation with adjacent ground-glass opacity at the medial right lower lobe, may be secondary to acute infection/inflammation such as pneumonia versus neoplasm. Clinical correlation recommended. Evaluation with PET/ CT as clinically warranted. 2. Mediastinal and axillary adenopathy, may be secondary to known leukemia. 3. Cardiomegaly. IMPRESSION: 1. Abdominal, retroperitoneal, pelvic and inguinal adenopathy, may be secondary to known leukemia. 2. 1.7 x 1.3 cm hypodense splenic lesion, indeterminate. 3. 7 mm right ureteral calculus. No hydronephrosis. Bilateral nephrolithia sis. 4. Colonic diverticulosis. Head CT 06/11/19 13:23 IMPRESSION: CHRONIC CHANGES OF ATROPHY AND MICROVASCULAR ISCHEMIA. NO ACUTE PROCESS. EVIDENCE OF ACUTE STROKE: NO. Chest X-Ray 06/13/19 08:15 IMPRESSION: NO ACUTE RADIOGRAPHIC FINDING IN THE CHEST. Assessment and Plan - Diagnosis (1) CLL (chronic lymphocytic leukemia) Is this a current diagnosis for this admission?: Yes Plan: Oncology believes that this is likely CLL, and will continue to follow him as an outpatient. (2) Pneumonia Qualifiers: Pneumonia type: due to unspecified organism Laterality: bilateral Lung location: lower lobe of lung Qualified Code(s): J18.1 - Lobar pneumonia, unspecified organism Is this a current diagnosis for this admission?: Yes Plan: Cultures have been negative. He continues on vancomycin and meropenem. I put him on some steroids but because his lung sounds are much better him to go ahead and discontinue them as I am concerned that they may be playing a part in some of his encephalopathy. (3) Metabolic encephalopathy Is this a current diagnosis for this admission?: Yes Plan: I have discontinued all the medications that I think could potentially affect his mental status. Hopefully as his medical condition improves and some of the medications get out of his system we will have an improvement in his mental status. Also, he is restless, so we will get physical therapy to evaluate him to get him some activity. - Time Time Spent with patient: 15-24 minutes
[2019-06-16] MEDS: VANCOMYCIN HCL 1,000 MG in DEXTROSE 5%-WATER 250 ML IV SCH (18:20)
[2019-06-17] MEDS: VANCOMYCIN HCL 1,000 MG in DEXTROSE 5%-WATER 250 ML IV SCH ×3 (03:35→18:40)
[2019-06-17] MEDS: PANTOPRAZOLE SODIUM 40 MG TABLET.DR PO SCH ×2 (06:14→16:48)
[2019-06-17] MEDS: MEROPENEM 1 GM in NORMAL SALINE 50 ML IV SCH ×3 (06:14→22:26)
[2019-06-17] MEDS: LEVOTHYROXINE SODIUM 0.025 MG TABLET PO SCH (06:15)
[2019-06-17] MEDS: NORMAL SALINE 1000 ML 1,000 ML IV PRN (06:15)
--- NOTE | 2019-06-17 08:13 | PDOC PROGRESS REPORT ---
Subjective Progress Note for:: 06/17/19 Subjective:: Patient remains pleasantly confused. He states he has not been able to reach his . He does not remember how many children he has. He asks me where we are this morning. ROS: He denies dyspnea or pain. He is eating well. IV fluids have been restarted. Reason For Visit: ACUTE LEUKEMIA Physical Exam Vital Signs: Temp Pulse Resp BP Pulse Ox 97.7 F 71 18 152/80 H 92 06/16/19 23:51 06/16/19 23:51 06/16/19 23:51 06/16/19 23:51 06/16/19 23:51 Intake & Output 06/16/19 06/17/19 06/18/19 06:59 06:59 06:59 Intake Total 2908 2827 Output Total 1000 500 Balance 1908 2327 Weight 84 kg 83.9 kg General appearance: PRESENT: no acute distress, well-developed, well-nourished Head exam: PRESENT: normocephalic Respiratory exam: PRESENT: unlabored Neurological exam: PRESENT: alert, awake. ABSENT: oriented to person, oriented to place, oriented to time, oriented to situation Psychiatric exam: PRESENT: appropriate affect Skin exam: PRESENT: normal color Results Laboratory Results: 06/16/19 09:36 06/16/19 09:36 06/16/19 06/16/19 06/16/19 09:36 09:36 09:36 WBC 92.6 H* RBC 3.55 L Hgb 10.2 L Hct 32.4 L MCV 91 MCH 28.7 MCHC 31.5 L RDW 15.8 H Plt Count 251 Seg Neutrophils % Not Reportable Sodium 136.2 L Potassium 4.1 Chloride 102 Carbon Dioxide 23 Anion Gap 11 BUN 42 H Creatinine 0.95 0.95 Est GFR ( Amer) > 60 > 60 Glucose 239 H Calcium 9.0 Total Bilirubin 0.7 AST 60 H Alkaline Phosphatase 53 Total Protein 5.9 L Albumin 3.1 L 06/11/19 18:00 Blood Blood Culture - Final NO GROWTH IN 5 DAYS 06/11/19 18:25 Blood Blood Culture - Final NO GROWTH IN 5 DAYS 06/11/19 06/12/19 13:04 04:06 Troponin I 0.031 NT-Pro-B Natriuret Pep 2470 H Impressions: Abdomen/Pelvis CT 06/11/19 00:00 IMPRESSION: 1. Masslike consolidation with adjacent ground-glass opacity at the medial right lower lobe, may be secondary to acute infection/inflammation such as pneumonia versus neoplasm. Clinical correlation recommended. Evaluation with PET/ CT as clinically warranted. 2. Mediastinal and axillary adenopathy, may be secondary to known leukemia. 3. Cardiomegaly. IMPRESSION: 1. Abdominal, retroperitoneal, pelvic and inguinal adenopathy, may be secondary to known leukemia. 2. 1.7 x 1.3 cm hypodense splenic lesion, indeterminate. 3. 7 mm right ureteral calculus. No hydronephrosis. Bilateral nephrolithiasis. 4. Colonic diverticulosis. Chest CT 06/11/19 00:00 IMPRESSION: 1. Masslike consolidation with adjacent ground-glass opacity at the medial right lower lobe, may be secondary to acute infection/inflammation such as pneumonia versus neoplasm. Clinical correlation recommended. Evaluation with PET/ CT as clinically warranted. 2. Mediastinal and axillary adenopathy, may be secondary to known leukemia. 3. Cardiomegaly. IMPRESSION: 1. Abdominal, retroperitoneal, pelvic and inguinal adenopathy, may be secondary to known leukemia. 2. 1.7 x 1.3 cm hypodense splenic lesion, indeterminate. 3. 7 mm right ureteral calculus. No hydronephrosis. Bilateral nephrolithiasis. 4. Colonic diverticulosis. Head CT 06/11/19 13:23 IMPRESSION: CHRONIC CHANGES OF ATROPHY AND MICROVASCULAR ISCHEMIA. NO ACUTE PROCESS. EVIDENCE OF ACUTE STROKE: NO. Chest X-Ray 06/13/19 08:15 IMPRESSION: NO ACUTE RADIOGRAPHIC FINDING IN THE CHEST. Assessment & Plan - Diagnosis (1) Acute leukemia Qualifiers: Leukemia Active/Remission status: without remission Qualified Code(s): C95.00 - Acute leukemia of unspecified cell type not having achieved remission Is this a current diagnosis for this admission?: Yes Plan: CLL remains stable. All blood counts are a bit higher today indicating recovering marrow and more concentrated specimen. This remains stable. (2) Diabetes Qualifiers: Diabetes mellitus type: type 2 Is this a current diagnosis for this admission?: No (3) Pneumonia Qualifiers: Pneumonia type: due to unspecified organism Laterality: bilateral Lung location: lower lobe of lung Qualified Code(s): J18.1 - Lobar pneumonia, unspecified organism Is this a current diagnosis for this admission?: Yes Plan: Antibiotic continue. Vital signs have remained stable. - Plan Summary Plan Summary: OK for discharge from my standpoint. I will be available over the weekend if needed. Please call with concerns.
[2019-06-17] MEDS: PAROXETINE HCL 20 MG TABLET PO SCH (09:10)
[2019-06-17] MEDS: ENOXAPARIN SODIUM INJ 40 MG/0.4 ML DISP.SYRIN SUBCUT SCH (09:11)
[2019-06-17] MEDS: INSULIN LISPRO 100 UNIT/ML 3 ML VIAL SUBCUT SCH ×4 (09:11→22:26)
[2019-06-17] MEDS: ALLOPURINOL 300 MG TABLET PO SCH (09:11)
[2019-06-17] MEDS: PIOGLITAZONE HCL 15 MG TABLET PO SCH (09:11)
[2019-06-17 10:18] LABS: VANCOMYCIN,TROUGH 15.1 ug/mL (5.0-20.0)
--- NOTE | 2019-06-17 16:48 | PDOC PROGRESS REPORT ---
Subjective Progress Note for:: 06/17/19 Subjective:: No adverse events overnight. He did not seem to be as confused today as he has been in previous days. He is been resting comfortably. He is been eating and drinking without difficulty. Vital signs been stable. Reason For Visit: ACUTE LEUKEMIA Physical Exam Vital Signs: Temp Pulse Resp BP Pulse Ox 98.0 F 82 18 152/59 H 96 06/17/19 11:52 06/17/19 11:52 06/17/19 11:52 06/17/19 11:52 06/17/19 11:52 Intake & Output 06/16/19 06/17/19 06/18/19 06:59 06:59 06:59 Intake Total 2908 2827 1210 Output Total 1000 500 450 Balance 1908 2327 760 Weight 84 kg 83.9 kg General appearance: PRESENT: cooperative, disheveled, no apparent distress, obese Respiratory exam: PRESENT: Diminished, symmetrical, unlabored. ABSENT: accessory muscle use, crackles, prolonged expiratory phase, chest wall tenderness, rhonchi, tachypnea, wheezes Cardiovascular exam: PRESENT: RRR, +S1, +S2 Pulses: PRESENT: normal carotid pulses Vascular exam: PRESENT: normal capillary refill GI/Abdominal exam: PRESENT: normal bowel sounds, soft. ABSENT: distended, guarding, rebound, tenderness Extremities exam: ABSENT: clubbing, pedal edema Musculoskeletal exam: PRESENT: normal inspection. ABSENT: deformity Neurological exam: PRESENT: alert, awake, oriented to person, oriented to place. ABSENT: oriented to situation Psychiatric exam: PRESENT: flat affect Skin exam: PRESENT: dry, warm Results Laboratory Results: 06/16/19 09:36 06/17/19 09:27 06/17/19 09:27 Creatinine 0.93 Est GFR ( Amer) > 60 06/11/19 18:00 Blood Blood Culture - Final NO GROWTH IN 5 DAYS 06/11/19 18:25 Blood Blood Culture - Final NO GROWTH IN 5 DAYS 06/11/19 06/12/19 13:04 04:06 Troponin I 0.031 NT-Pro-B Natriuret Pep 2470 H Impressions: Abdomen/Pelvis CT 06/11/19 00:00 IMPRESSION: 1. Masslike consolidation with adjacent ground-glass opacity at the medial right lower lobe, may be secondary to acute infection/inflammation such as pneumonia versus neoplasm. Clinical correlation recommended. Evaluation with PET/ CT as clinically warranted. 2. Mediastinal and axillary adenopathy, may be secondary to known leukemia. 3. Cardiomegaly. IMPRESSION: 1. Abdominal, retroperitoneal, pelvic and inguinal adenopathy, may be secondary to known leukemia. 2. 1.7 x 1.3 cm hypodense splenic lesion, indeterminate. 3. 7 mm right ureteral calculus. No hydronephrosis. Bilateral nephrolithiasis. 4. Colonic diverticulosis. Chest CT 06/11/19 00:00 IMPRESSION: 1. Masslike consolidation with adjacent ground-glass opacity at the medial right lower lobe, may be secondary to acute infection/inflammation such as pneumonia versus neoplasm. Clinical correlation recommended. Evalu ation with PET/ CT as clinically warranted. 2. Mediastinal and axillary adenopathy, may be secondary to known leukemia. 3. Cardiomegaly. IMPRESSION: 1. Abdominal, retroperitoneal, pelvic and inguinal adenopathy, may be secondary to known leukemia. 2. 1.7 x 1.3 cm hypodense splenic lesion, indeterminate. 3. 7 mm right ureteral calculus. No hydronephrosis. Bilateral nephrolithiasis. 4. Colonic diverticulosis. Head CT 06/11/19 13:23 IMPRESSION: CHRONIC CHANGES OF ATROPHY AND MICROVASCULAR ISCHEMIA. NO ACUTE PROCESS. EVIDENCE OF ACUTE STROKE: NO. Chest X-Ray 06/13/19 08:15 IMPRESSION: NO ACUTE RADIOGRAPHIC FINDING IN THE CHEST. Assessment and Plan - Diagnosis (1) CLL (chronic lymphocytic leukemia) Is this a current diagnosis for this admission?: Yes Plan: Oncology believes that this is likely CLL, and will continue to follow him as an outpatient. (2) Pneumonia Qualifiers: Pneumonia type: due to unspecified organism Laterality: bilateral Lung location: lower lobe of lung Qualified Code(s): J18.1 - Lobar pneumonia, unspecified organism Is this a current diagnosis for this admission?: Yes Plan: Cultures have been negative. He continues on vancomycin and meropenem. I put him on an oral agent when he was discharged. (3) Metabolic encephalopathy Is this a current diagnosis for this admission?: Yes Plan: We took away anything that could be contributing to his encephalopathy. He does seem less confused today than he was yesterday. We will continue to monitor his progress and hopefully able to discharge him tomorrow morning. He was seen by physical therapy and they felt that he could do home health PT. - Time Time Spent with patient: 15-24 minutes
[2019-06-18] MEDS: VANCOMYCIN HCL 1,000 MG in DEXTROSE 5%-WATER 250 ML IV SCH ×3 (01:32→17:25)
[2019-06-18] MEDS: MEROPENEM 1 GM in NORMAL SALINE 50 ML IV SCH ×3 (05:15→21:44)
[2019-06-18] MEDS: PANTOPRAZOLE SODIUM 40 MG TABLET.DR PO SCH ×2 (05:16→17:29)
[2019-06-18] MEDS: LEVOTHYROXINE SODIUM 0.025 MG TABLET PO SCH (05:16)
[2019-06-18] MEDS: INSULIN LISPRO 100 UNIT/ML 3 ML VIAL SUBCUT SCH ×4 (07:50→21:45)
[2019-06-18] MEDS: ACETAMINOPHEN 325 MG TABLET PO PRN (08:52)
[2019-06-18] MEDS: PIOGLITAZONE HCL 15 MG TABLET PO SCH (10:03)
[2019-06-18] MEDS: PAROXETINE HCL 20 MG TABLET PO SCH (10:04)
[2019-06-18] MEDS: ENOXAPARIN SODIUM INJ 40 MG/0.4 ML DISP.SYRIN SUBCUT SCH (10:04)
[2019-06-18] MEDS: ALLOPURINOL 300 MG TABLET PO SCH (10:04)
--- NOTE | 2019-06-18 15:42 | PDOC PROGRESS REPORT ---
Subjective Progress Note for:: 06/18/19 Subjective:: No adverse events overnight. He is consistently been on oxygen the last couple days. Hard to tell if his mental status has improved today because he is very sleepy. He was nodding off while I was talking to him and he does not seem to have gotten anything sedating this morning. Vital signs have been stable and his breathing looks comfortable. Reason For Visit: ACUTE LEUKEMIA Physical Exam Vital Signs: Temp Pulse Resp BP Pulse Ox 97.7 F 73 21 H 132/52 H 93 06/18/19 11:02 06/18/19 11:02 06/18/19 11:02 06/18/19 11:02 06/18/19 11:02 Intake & Output 06/17/19 06/18/19 06/19/19 06:59 06:59 06:59 Intake Total 2827 2640 Output Total 500 725 Balance 2327 1915 Weight 83.9 kg 83.9 kg General appearance: PRESENT: cooperative, disheveled, no apparent distress, obese Respiratory exam: PRESENT: Diminished, symmetrical, unlabored. ABSENT: accessory muscle use, crackles, prolonged expiratory phase, chest wall tenderness, rhonchi, tachypnea, wheezes Cardiovascular exam: PRESENT: RRR, +S1, +S2 Pulses: PRESENT: normal carotid pulses Vascular exam: PRESENT: normal capillary refill GI/Abdominal exam: PRESENT: normal bowel sounds, soft. ABSENT: distended, guarding, rebound, tenderness Extremities exam: ABSENT: clubbing, pedal edema Musculoskeletal exam: PRESENT: normal inspection. ABSENT: deformity Neurological exam: PRESENT: Drowsy but arousable, oriented to person, oriented to place. ABSENT: oriented to situation Psychiatric exam: PRESENT: flat affect Skin exam: PRESENT: dry, warm Results Laboratory Results: 06/16/19 09:36 06/17/19 09:27 06/13/19 08:55 Blood Blood Culture - Final NO GROWTH IN 5 DAYS 06/13/19 08:25 Blood Blood Culture - Final NO GROWTH IN 5 DAYS 06/11/19 06/12/19 13:04 04:06 Troponin I 0.031 NT-Pro-B Natriuret Pep 2470 H Impressions: Abdomen/Pelvis CT 06/11/19 00:00 IMPRESSION: 1. Masslike consolidation with adjacent ground-glass opacity at the medial right lower lobe, may be secondary to acute infection/inflammation such as pneumonia versus neoplasm. Clinical correlation recommended. Evaluation with PET/ CT as clinically warranted. 2. Mediastinal and axillary adenopathy, may be secondary to known leukemia. 3. Cardiomegaly. IMPRESSION: 1. Abdominal, retroperitoneal, pelvic and inguinal adenopathy, may be secondary to known leukemia. 2. 1.7 x 1.3 cm hypodense splenic lesion, indeterminate. 3. 7 mm right ureteral calculus. No hydronephrosis. Bilateral nephrolithiasis. 4. Colonic diverticulosis. Chest CT 06/11/19 00:00 IMPRESSION: 1. Masslike consolidation with adjacent ground-glass opacity at the medial right lower lobe, may be secondary to acute infection/inflammation such as pneumonia versus neoplasm. Clinical correlation recommended. Evaluation with PET/ CT as clinically warranted. 2. Mediastinal and axillary adenopathy, may be secondary to known leukemia. 3. Cardiomegaly. IMPRESSION: 1. Abdominal, retroperitoneal, pelvic and inguinal adenopathy, may be secondary to known leukemia. 2. 1.7 x 1.3 cm hypodense splenic lesion, indeterminate. 3. 7 mm right ureteral calculus. No hydronephrosis. Bilateral nephrolithiasis. 4. Colonic diverticulosis. Head CT 06/11/19 13:23 IMPRESSION: CHRONIC CHANGES OF ATROPHY AND MICROVASCULAR ISCHEMIA. NO ACUTE PROCESS. EVIDENCE OF ACUTE STROKE: NO. Chest X-Ray 06/13/19 08:15 IMPRESSION: NO ACUTE RADIOGRAPHIC FINDING IN THE CHEST. Assessment and Plan - Diagnosis (1) CLL (chronic lymphocytic leukemia) Is this a current diagnosis for this admission?: Yes Plan: Oncology believes that this is likely CLL, and will continue to follow him as an outpatient. (2) Pneumonia Qualifiers: Pneumonia type: due to unspecified organism Laterality: bilateral Lung location: lower lobe of lung Qualified Code(s): J18.1 - Lobar pneumonia, unspecified organism Is this a current diagnosis for this admission?: Yes Plan: Cultures have been negative. He continues on vancomycin and meropenem. I put him on an oral agent when he was discharged. (3) Metabolic encephalopathy Is this a current diagnosis for this admission?: Yes Plan: He does not seem to be somewhat improved after coming off of several different things that could have caused him to be encephalopathic. Hard to tell today if he is making progress because he was so sleepy. I meant to try to contact his and see what his mental status is like on a normal day. - Time Time Spent with patient: 15-24 minutes
[2019-06-18] MEDS: NORMAL SALINE 1000 ML 1,000 ML IV PRN (17:25)
[2019-06-19] MEDS: ACETAMINOPHEN 325 MG TABLET PO PRN ×2 (00:36→16:43)
[2019-06-19] MEDS: VANCOMYCIN HCL 1,000 MG in DEXTROSE 5%-WATER 250 ML IV SCH ×3 (01:58→17:20)
[2019-06-19] MEDS: PANTOPRAZOLE SODIUM 40 MG TABLET.DR PO SCH ×2 (06:30→16:15)
[2019-06-19] MEDS: MEROPENEM 1 GM in NORMAL SALINE 50 ML IV SCH ×3 (06:30→22:57)
[2019-06-19] MEDS: LEVOTHYROXINE SODIUM 0.025 MG TABLET PO SCH (06:30)
[2019-06-19] MEDS: INSULIN LISPRO 100 UNIT/ML 3 ML VIAL SUBCUT SCH ×4 (08:08→22:57)
[2019-06-19] MEDS: PIOGLITAZONE HCL 15 MG TABLET PO SCH (10:45)
[2019-06-19] MEDS: PAROXETINE HCL 20 MG TABLET PO SCH (10:45)
[2019-06-19] MEDS: ALLOPURINOL 300 MG TABLET PO SCH (10:45)
[2019-06-19] MEDS: ENOXAPARIN SODIUM INJ 40 MG/0.4 ML DISP.SYRIN SUBCUT SCH (10:46)
--- NOTE | 2019-06-19 12:26 | PDOC PROGRESS REPORT ---
Subjective Progress Note for:: 06/19/19 Subjective:: No adverse events overnight. No new complaints. He naps a lot during the day. Currently on room air and looks comfortable. He had another fever again this morning. Reason For Visit: ACUTE LEUKEMIA Physical Exam Vital Signs: Temp Pulse Resp BP Pulse Ox 99.7 F 84 19 151/59 H 95 06/19/19 11:14 06/19/19 11:14 06/19/19 11:14 06/19/19 11:14 06/19/19 11:14 Intake & Output 06/18/19 06/19/19 06/20/19 06:59 06:59 06:59 Intake Total 3640 2723 50 Output Total 725 200 Balance 2915 2523 50 Weight 83.9 kg 86.3 kg General appearance: PRESENT: cooperative, disheveled, no apparent distress, obese Respiratory exam: PRESENT: Diminished, symmetrical, unlabored. ABSENT: accessory muscle use, crackles, prolonged expiratory phase, chest wall tenderness, rhonchi, tachypnea, wheezes Cardiovascular exam: PRESENT: RRR, +S1, +S2 Pulses: PRESENT: normal carotid pulses Vascular exam: PRESENT: normal capillary refill GI/Abdominal exam: PRESENT: normal bowel sounds, soft. ABSENT: distended, g uarding, rebound, tenderness Extremities exam: ABSENT: clubbing, pedal edema Musculoskeletal exam: PRESENT: normal inspection. ABSENT: deformity Neurological exam: PRESENT: Drowsy but arousable, oriented to person, oriented to place. ABSENT: oriented to situation Psychiatric exam: PRESENT: flat affect Skin exam: PRESENT: dry, warm Results Laboratory Results: 06/16/19 09:36 06/17/19 09:27 06/13/19 08:55 Blood Blood Culture - Final NO GROWTH IN 5 DAYS 06/13/19 08:25 Blood Blood Culture - Final NO GROWTH IN 5 DAYS 06/11/19 06/12/19 13:04 04:06 Troponin I 0.031 NT-Pro-B Natriuret Pep 2470 H Impressions: Abdomen/Pelvis CT 06/11/19 00:00 IMPRESSION: 1. Masslike consolidation with adjacent ground-glass opacity at the medial right lower lobe, may be secondary to acute infection/inflammation such as pneumonia versus neoplasm. Clinical correlation recommended. Evaluation with PET/ CT as clinically warranted. 2. Mediastinal and axillary adenopathy, may be secondary to known leukemia. 3. Cardiomegaly. IMPRESSION: 1. Abdominal, retroperitoneal, pelvic and inguinal adenopathy, may be secondary to known leukemia. 2. 1.7 x 1.3 cm hypodense splenic lesion, indeterminate. 3. 7 mm right ureteral calculus. No hydronephrosis. Bilateral nephrolithiasis. 4. Colonic diverticulosis. Chest CT 06/11/19 00:00 IMPRESSION: 1. Masslike consolidation with adjacent ground-glass opacity at the medial right lower lobe, may be secondary to acute infection/inflammation such as pneumonia versus neoplasm. Clinical correlation recommended. Evaluation with PET/ CT as clinically warranted. 2. Mediastinal and axillary adenopathy, may be secondary to known leukemia. 3. Cardiomegaly. IMPRESSION: 1. Abdominal, retroperitoneal, pelvic and inguinal adenopathy, may be secondary to known leukemia. 2. 1.7 x 1.3 cm hypodense splenic lesion, indeterminate. 3. 7 mm right ureteral calculus. No hydronephrosis. Bilateral nephrolithiasis. 4. Colonic diverticulosis. Head CT 06/11/19 13:23 IMPRESSION: CHRONIC CHANGES OF ATROPHY AND MICROVASCULAR ISCHEMIA. NO ACUTE PROCESS. EVIDENCE OF ACUTE STROKE: NO. Chest X-Ray 06/13/19 08:15 IMPRESSION: NO ACUTE RADIOGRAPHIC FINDING IN THE CHEST. Assessment and Plan - Diagnosis (1) CLL (chronic lymphocytic leukemia) Is this a current diagnosis for this admission?: Yes Plan: Oncology believes that this is likely CLL, and will continue to follow him as an outpatient. (2) Pneumonia Qualifiers: Pneumonia type: due to unspecified organism Laterality: bilateral Lung location: lower lobe of lung Qualified Code(s): J18.1 - Lobar pneumonia, unspecified organism Is this a current diagnosis for this admission?: Yes Plan: We have had him on broad-spectrum antibiotics, but he has some persistent intermittent hypoxemia combined with another fever. He is also been persistently fatigued, which may be as result of his age and comorbidities combined with his acute illness, but overall his picture is a bit puzzling. Minute repeat a CT scan of his chest with contrast just to rule out an occult p rocess that may be contributing to the prolonged nature of his acute illness. (3) Metabolic encephalopathy Is this a current diagnosis for this admission?: Yes Plan: It is hard to tell now if he still encephalopathic or if he just very very fatigued. Chest CT to rule out acute process as noted above. - Time Time Spent with patient: 25-34 minutes
--- NOTE | 2019-06-19 13:25 | RADIOLOGY REPORT (SQ) ---
EXAM DESCRIPTION: CT CHEST WITH COMPLETED DATE/TIME: 06/19/2019 1:05 pm REASON FOR STUDY: hypoxemia, fever COMPARISON: 06/11/2019. TECHNIQUE: CT scan of the chest performed using helical scanning technique with dynamic intravenous contrast injection. Images reviewed with lung, soft tissue and bone windows. Reconstructed coronal and sagittal MPR and MIP images reviewed. All images stored on PACS. All CT scanners at this facility use dose modulation, iterative reconstruction, and/or weight based d osing when appropriate to reduce radiation dose to as low as reasonably achievable (ALARA). [facility]: Dose Right [facility]: CareDose [facility]: Dose Right [facility]: Teradose 4D [facility]: Hiri CONTRAST TYPE AND DOSE: contrast/concentration: Isovue 350.00 mg/ml; Total Contrast Delivered: 74.0 ml; Total Saline Delivered: 55.0 ml RENAL FUNCTION: GFR > 60. RADIATION DOSE: CT Rad equipment meets quality standard of care and radiation dose reduction techniq ues were employed. CTDIvol: 18.7 mGy. DLP: 666 mGy-cm. . LIMITATIONS: None. FINDINGS: Compared to 06/11/2019: - Progressive consolidation in the right lower lobe, now with bilateral small effusions. Slightly pr ogressive hazy ground-glass opacity in the right lung as well. - Less mass effect on the right mainstem bronchus, however. Persistent adenopathy noted which looks similar. Includes a calcified subcarinal node. - axillary adenopathy, numerous nodes which generally look slightly less conspicuous compared to prio r. - no developing aortic dissection or aneurysm or gross central pulmonary embolus. - bones intact. IMPRESSION: 1. Progressive right lower lobe infiltrates including worsening consolidation and ground-glass densit ies. There are also small bilateral pleural effusions now noted. 2. Stable mediastinal adenopathy. There may be some improvement in right hilar region nodes, however , as there is less narrowing of the right mainstem bronchus compared to 06/11/2019. 3. Persistent but perhaps slightly improving axillary adenopathy. TECHNICAL DOCUMENTATION: JOB ID: [id number] Quality ID # [id number]: Final reports with documentation of one or more dose reduction techniques (e.g., Au tomated exposure control, adjustment of the mA and/or kV according to patient size, use of iterative reconstruction technique) 2010 [employer]- All Rights Reserved Reading location - IP/workstation name: [email or web address]
[2019-06-19 14:42] LABS: ANION GAP 10 (5-19); BLOOD UREA NITROGEN 23 mg/dL (7-20); CALCIUM 8.4 mg/dL (8.4-10.2); CARBON DIOXIDE 24 mmol/L (22-30); CHLORIDE 96 mmol/L (98-107); GLUCOSE 293 mg/dL (75-110); POTASSIUM 4.6 mmol/L (3.6-5.0)
[2019-06-20] MEDS: VANCOMYCIN HCL 1,000 MG in DEXTROSE 5%-WATER 250 ML IV SCH ×3 (02:14→17:00)
[2019-06-20 04:41] LABS: HEMATOCRIT 28.3 % (37.9-51.0); HEMOGLOBIN 9.3 g/dL (13.5-17.0); MEAN CORPUSCULAR HEMOGLOBIN 29.6 pg (27.0-33.4); MEAN CORPUSCULAR HGB CONC 32.7 g/dL (32.0-36.0); MEAN CORPUSCULAR VOLUME 91 fl (80-97); PLATELET COUNT 238 10^3/uL (150-450); RED BLOOD COUNT 3.12 10^6/uL (4.35-5.55); RED CELL DISTRIBUTION WIDTH 15.7 % (11.5-14.0)
[2019-06-20 04:46] LABS: WHITE BLOOD COUNT 57.2 10^3/uL (4.0-10.5)
[2019-06-20 05:12] LABS: ABSOLUTE LYMPHOCYTES# (MANUAL) 54.9 10^3/uL (0.5-4.7); ANISOCYTOSIS 1+; BASOPHILS % (MANUAL) 0 % (0-2); EOSINOPHILS % (MANUAL) 0 % (0-6); LYMPHOCYTES % (MANUAL) 91 % (13-45); MONOCYTES % (MANUAL) 0 % (3-13); SEGMENTED NEUTROPHILS % (MAN) 4 % (42-78); TOTAL CELLS COUNTED 100
[2019-06-20 05:13] LABS: HYPOCHROMASIA 2+; PLATELET COMMENT ADEQUATE
[2019-06-20] MEDS: PANTOPRAZOLE SODIUM 40 MG TABLET.DR PO SCH ×2 (05:56→16:50)
[2019-06-20] MEDS: LEVOTHYROXINE SODIUM 0.025 MG TABLET PO SCH (05:56)
[2019-06-20] MEDS: MEROPENEM 1 GM in NORMAL SALINE 50 ML IV SCH ×3 (05:56→21:30)
[2019-06-20] MEDS: ACETAMINOPHEN 325 MG TABLET PO PRN (06:49)
[2019-06-20] MEDS: INSULIN LISPRO 100 UNIT/ML 3 ML VIAL SUBCUT SCH ×4 (09:03→21:29)
[2019-06-20] MEDS: PIOGLITAZONE HCL 15 MG TABLET PO SCH (09:04)
[2019-06-20] MEDS: ENOXAPARIN SODIUM INJ 40 MG/0.4 ML DISP.SYRIN SUBCUT SCH (09:04)
[2019-06-20] MEDS: ALLOPURINOL 300 MG TABLET PO SCH (09:04)
[2019-06-20] MEDS: PAROXETINE HCL 20 MG TABLET PO SCH (09:09)
--- NOTE | 2019-06-20 09:56 | PDOC PROGRESS REPORT ---
Subjective Progress Note for:: 06/20/19 Subjective:: Patient sleeping peacefully. He ate his entire breakfast. Nurses report that he remains confused and has been sleepy today. Reason For Visit: ACUTE LEUKEMIA Physical Exam Vital Signs: Temp Pulse Resp BP Pulse Ox 98.8 F 70 20 146/54 H 95 06/20/19 07:50 06/20/19 07:50 06/20/19 07:50 06/20/19 07:50 06/20/19 07:50 Intake & Output 06/19/19 06/20/19 06/21/19 06:59 06:59 06:59 Intake Total 2723 2478 50 Output Total 200 640 Balance 2523 1838 50 Weight 86.3 kg 86.3 kg General appearance: PRESENT: well-developed, well-nourished Head exam: PRESENT: normocephalic Respiratory exam: PRESENT: clear to auscultation zeke, unlabored Cardiovascular exam: PRESENT: RRR Musculoskeletal exam: PRESENT: normal inspection Psychiatric exam: PRESENT: other - pleasantly confused. Skin exam: PRESENT: normal color Results Laboratory Results: 06/20/19 04:19 06/19/19 14:12 06/19/19 06/20/19 14:12 04:19 WBC 57.2 H* RBC 3.12 L Hgb 9.3 L Hct 28.3 L MCV 91 MCH 29.6 MCHC 32.7 RDW 15.7 H Plt Count 238 Seg Neutrophils % Not Reportable Sodium 129.7 L Potassium 4.6 Chloride 96 L Carbon Dioxide 24 Anion Gap 10 BUN 23 H Creatinine 0.84 Est GFR ( Amer) > 60 Glucose 293 H Calcium 8.4 06/11/19 06/12/19 13:04 04:06 Troponin I 0.031 NT-Pro-B Natriuret Pep 2470 H Impressions: Abdomen/Pelvis CT 06/11/19 00:00 IMPRESSION: 1. Masslike consolidation with adjacent ground-glass opacity at the medial right lower lobe, may be secondary to acute infection/inflammation such as pneumonia versus neoplasm. Clinical correlation recommended. Evaluation with PET/ CT as clinically warranted. 2. Mediastinal and axillary adenopathy, may be secondary to known leukemia. 3. Cardiomegaly. IMPRESSION: 1. Abdominal, retroperitoneal, pelvic and inguinal adenopathy, may be secondary to known leukemia. 2. 1.7 x 1.3 cm hypodense splenic lesion, indeterminate. 3. 7 mm right ureteral calculus. No hydronephrosis. Bilateral nephrolithiasis. 4. Colonic diverticulosis. Head CT 06/11/19 13:23 IMPRESSION: CHRONIC CHANGES OF ATROPHY AND MICROVASCULAR ISCHEMIA. NO ACUTE PROCESS. EVIDENCE OF ACUTE STROKE: NO. Chest X-Ray 06/13/19 08:15 IMPRESSION: NO ACUTE RADIOGRAPHIC FINDING IN THE CHEST. Chest CT 06/19/19 00:00 IMPRESSION: 1. Progressive right lower lobe infiltrates including worsening consolidation and ground-glass densities. There are also small bilateral pleural effusions now noted. 2. Stable mediastinal adenopathy. There may be some improvement in right hilar region nodes, however, as there is less narrowing of the right mainstem bronchus compared to 06/11/2019. 3. Persistent but perhaps slightly improving axillary adenopathy. Assessment & Plan - Diagnosis (1) Acute leukemia Qualifiers: Leukemia Active/Remission status: without remission Qualified Code(s): C95.00 - Acute leukemia of unspecified cell type not having achieved remission Is this a current diagnosis for this admission?: Yes Plan: His Flow Cytometry is in his paper chart. This showed CLL. No Acute leukemia. His WBC are down and his CT shows improvement in the lymph node enlargement. No further treatment is planned and I will follow him as outpatient. (2) Diabetes Qualifiers: Diabetes mellitus type: type 2 Is this a current diagnosis for this admission?: No (3) Pneumonia Qualifiers: Pneumonia type: due to unspecified organism Laterality: bilateral Lung location: lower lobe of lung Qualified Code(s): J18.1 - Lobar pneumonia, unspecified organism Is this a current diagnosis for this admission?: Yes - Plan Summary Plan Summary: He continues to be confused. He may have had a hypoxic event or small CVA during this episode which has caused the continued confusion. I am not sure that this will clear at this point. I will defer to primary team.
[2019-06-20] MEDS ORDERED: FUROSEMIDE INJ/PF 40 MG/4 ML SDV IV ONE (10:45)
--- NOTE | 2019-06-20 15:14 | PDOC PROGRESS REPORT ---
Subjective Progress Note for:: 06/20/19 Subjective:: No adverse events overnight. No new complaints. Vital signs been stable. He is been consistently on a couple liters of oxygen per nasal cannula and is breathing fairly comfortably. He is been napping a lot but today he woke up and conversed with me and seemed to be the most oriented that he is been since I have seen him. Reason For Visit: ACUTE LEUKEMIA Physical Exam Vital Signs: Temp Pulse Resp BP Pulse Ox 98.0 F 61 20 141/52 H 97 06/20/19 11:22 06/20/19 11:22 06/20/19 11:22 06/20/19 11:22 06/20/19 11:22 Intake & Output 06/19/19 06/20/19 06/21/19 06:59 06:59 06:59 Intake Total 2723 2478 776 Output Total 200 640 800 Balance 2523 1838 -24 Weight 86.3 kg 86.3 kg General appearance: PRESENT: cooperative, disheveled, no apparent distress, obese Respiratory exam: PRESENT: Diminished, symmetrical, unlabored. ABSENT: accessory muscle use, crackles, prolonged expiratory phase, chest wall tenderness, rhonchi, tachypnea, wheezes Cardiovascular exam: PRESENT: RRR, +S1, +S2 Pulses: PRESENT: normal carotid pulses Vascular exam: PRESENT: normal capillary refill GI/Abdominal exam: PRESENT: normal bowel sounds, soft. ABSENT: distended, guarding, rebound, tenderness Extremities exam: ABSENT: clubbing, pedal edema Musculoskeletal exam: PRESENT: normal inspection. ABSENT: deformity Neurological exam: PRESENT: Drowsy but arousable, oriented to person, oriented to place, oriented to situation Psychiatric exam: PRESENT: flat affect Skin exam: PRESENT: dry, warm Results Laboratory Results: 06/20/19 04:19 06/19/19 14:12 06/20/19 04:19 WBC 57.2 H* RBC 3.12 L Hgb 9.3 L Hct 28.3 L MCV 91 MCH 29.6 MCHC 32.7 RDW 15.7 H Plt Count 238 Seg Neutrophils % Not Reportable 06/11/19 06/12/19 13:04 04:06 Troponin I 0.031 NT-Pro-B Natriuret Pep 2470 H Impressions: Abdomen/Pelvis CT 06/11/19 00:00 IMPRESSION: 1. Masslike consolidation with adjacent ground-glass opacity at the medial right lower lobe, may be secondary to acute infection/inflammation such as pneumonia versus neoplasm. Clinical correlation recommended. Evaluation with PET/ CT as clinically warranted. 2. Mediastinal and axillary adenopathy, may be secondary to known leukemia. 3. Cardiomegaly. IMPRESSION: 1. Abdominal, retroperitoneal, pelvic and inguinal adenopathy, may be secondary to known leukemia. 2. 1.7 x 1.3 cm hypodense splenic lesion, indeterminate. 3. 7 mm right ureteral calculus. No hydronephrosis. Bilateral neph rolithiasis. 4. Colonic diverticulosis. Head CT 06/11/19 13:23 IMPRESSION: CHRONIC CHANGES OF ATROPHY AND MICROVASCULAR ISCHEMIA. NO ACUTE PROCESS. EVIDENCE OF ACUTE STROKE: NO. Chest X-Ray 06/13/19 08:15 IMPRESSION: NO ACUTE RADIOGRAPHIC FINDING IN THE CHEST. Chest CT 06/19/19 00:00 IMPRESSION: 1. Progressive right lower lobe infiltrates including worsening consolidation and ground-glass densities. There are also small bilateral pleural effusions now noted. 2. Stable mediastinal adenopathy. There may be some improvement in right hilar region nodes, however, as there is less narrowing of the right mainstem bronchus compared to 06/11/2019. 3. Persistent but perhaps slightly improving axillary adenopathy. Assessment and Plan - Diagnosis (1) CLL (chronic lymphocytic leukemia) Is this a current diagnosis for this admission?: Yes Plan: Oncology believes that this is likely CLL, and will continue to follow him as an outpatient. (2) Pneumonia Qualifiers: Pneumonia type: due to unspecified organism Laterality: bilateral Lung location: lower lobe of lung Qualified Code(s): J18.1 - Lobar pneumonia, unspecified organism Is this a current diagnosis for this admission?: Yes Plan: We have had him on broad-spectrum antibiotics, but he has some persistent intermittent hypoxemia. CT scan of the chest shows that he is got some dense consolidation right lower lobe but also shows that the mass-effect on the right mainstem bronchus has reduced. Once his pneumonia has resolved he should probably have another chest CT. Nothing is grown out of his cultures. We will continue his current antibiotic regimen until he is discharged. We will encourage aggressive pulmonary toilet. (3) Metabolic encephalopathy Is this a current diagnosis for this admission?: Yes Plan: Cautiously optimistic that this is resolved. His sodium is down a little bit so have stopped his IV fluids, give him a dose of Lasix and repeat the BMP tomorrow. - Time Time Spent with patient: 15-24 minutes
[2019-06-21] MEDS: VANCOMYCIN HCL 1,000 MG in DEXTROSE 5%-WATER 250 ML IV SCH (01:00)
[2019-06-21] MEDS: LEVOTHYROXINE SODIUM 0.025 MG TABLET PO SCH (05:26)
[2019-06-21] MEDS: MEROPENEM 1 GM in NORMAL SALINE 50 ML IV SCH (05:26)
[2019-06-21] MEDS: PANTOPRAZOLE SODIUM 40 MG TABLET.DR PO SCH ×2 (05:26→16:12)
--- NOTE | 2019-06-21 07:50 | Progress Note Acknowledgement ---
Progress Note Acknowledgement Progess Note Acknowledgement: I, the undersigned member of the medical staff with appropriate privileges and with supervisory authority over [Valentin De La Fuente], a dependent practice allied health professional, acknowledge that I have reviewed the progress notes entered on this patient, and in my professional judgment believe that the assessment made and/or any care evidenced was appropriate
--- NOTE | 2019-06-21 07:54 | PDOC PROGRESS REPORT ---
Subjective Progress Note for:: 06/21/19 Subjective:: 07/18/2019-no complaints this a.m. Reason For Visit: ACUTE LEUKEMIA Physical Exam Vital Signs: Temp Pulse Resp BP Pulse Ox 99.1 F 74 18 149/72 H 97 06/21/19 00:03 06/21/19 00:03 06/21/19 00:03 06/20/19 20:11 06/21/19 00:03 Intake & Output 06/20/19 06/21/19 06/22/19 06:59 06:59 06:59 Intake Total 2478 2063 Output Total 640 1450 Balance 1838 613 Weight 86.3 kg 85 kg General appearance: PRESENT: no acute distress, well-developed, well-nourished Neck exam: ABSENT: carotid bruit, JVD, lymphadenopathy, thyromegaly Respiratory exam: PRESENT: clear to auscultation zeke. ABSENT: rales, rhonchi, wheezes Cardiovascular exam: PRESENT: RRR. ABSENT: diastolic murmur, rubs, systolic murmur Pulses: PRESENT: normal dorsalis pedis pul Vascular exam: PRESENT: normal capillary refill GI/Abdominal exam: PRESENT: normal bowel sounds, soft. ABSENT: distended, gu arding, mass, organolmegaly, rebound, tenderness Extremities exam: PRESENT: full ROM. ABSENT: calf tenderness, clubbing, pedal edema Neurological exam: PRESENT: alert, awake, oriented to person, oriented to place, oriented to time, oriented to situation, CN II-XII grossly intact. ABSENT: motor sensory deficit Psychiatric exam: PRESENT: appropriate affect, normal mood. ABSENT: homicidal ideation, suicidal ideation Skin exam: PRESENT: dry, intact, warm. ABSENT: cyanosis, rash Results Laboratory Results: 06/20/19 04:19 06/19/19 14:12 06/11/19 06/12/19 13:04 04:06 Troponin I 0.031 NT-Pro-B Natriuret Pep 2470 H Impressions: Abdomen/Pelvis CT 06/11/19 00:00 IMPRESSION: 1. Masslike consolidation with adjacent ground-glass opacity at the medial right lower lobe, may be secondary to acute infection/inflammation such as pneumonia versus neoplasm. Clinical correlation recommended. Evaluation with PET/ CT as clinically warranted. 2. Mediastinal and axillary adenopathy, may be secondary to known leukemia. 3. Cardiomegaly. IMPRESSION: 1. Abdominal, retroperitoneal, pelvic and inguinal adenopathy, may be secondary to known leukemia. 2. 1.7 x 1.3 cm hypodense splenic lesion, indeterminate. 3. 7 mm right ureteral calculus. No hydronephrosis. Bilateral nephrolithiasis. 4. Colonic diverticulosis. Head CT 06/11/19 13:23 IMPRESSION: CHRONIC CHANGES OF ATROPHY AND MICROVASCULAR ISCHEMIA. NO ACUTE PROCESS. EVIDENCE OF ACUTE STROKE: NO. Chest X-Ray 06/13/19 08:15 IMPRESSION: NO ACUTE RADIOGRAPHIC FINDING IN THE CHEST. Chest CT 06/19/19 00:00 IMPRESSION: 1. Progressive right lower lobe infiltrates including worsening consolidation and ground-glass densities. There are also small bilateral pleural effusions now noted. 2. Stable mediastinal adenopathy. There may be some improvement in right hilar region nodes, however, as there is less narrowing of the right mainstem bronchus compared to 06/11/2019. 3. Persistent but perhaps slightly improving axillary adenopathy. Assessment and Plan - Diagnosis (1) CLL (chronic lymphocytic leukemia) Is this a current diagnosis for this admission?: Yes Plan: Oncology believes that this is likely CLL, and will continue to follow him as an outpatient. 06/21/2019-stable at this time. Most likely CLL in nature. Will be followed on outpatient basis was discharged home. (2) Pneumonia Qualifiers: Pneumonia type: due to unspecified organism Laterality: bilateral Lung location: lower lobe of lung Qualified Code(s): J18.1 - Lobar pneumonia, unspecified organism Is this a current diagnosis for this admission?: Yes Plan: We have had him on broad-spectrum antibiotics, but he has some persistent intermittent hypoxemia. CT scan of the chest shows that he is got some dense consolidation right lower lobe but also shows that the mass-effect on the right mainstem bronchus has reduced. Once his pneumonia has resolved he should probably have another chest CT. Nothing is grown out of his cultures. We will continue his current antibiotic regimen until he is discharged. We will encourage aggressive pulmonary toilet. 06/21/2019-continue broad-spectrum antibiotics. Chest CT from yesterday showed possible worsening of this pneumonia. Cultures have been negative x5 days. We will continue current antibiotic therapy. Continue to follow (3) Metabolic encephalopathy Is this a current diagnosis for this admission?: Yes Plan: Cautiously optimistic that this is resolved. His sodium is down a little bit so have stopped his IV fluids, give him a dose of Lasix and repeat the BMP tomorrow. 06/21/2019-stable. Continue to follow throughout hospitalization. (4) Diabetes mellitus type 2 in obese Is this a current diagnosis for this admission?: Yes Plan: 06/21/2019-currently stable on current regimen. Continue treatment may change p talia of care based on hyper/hypoglycemic episodes. - Time Time Spent with patient: 15-24 minutes - Inpatient Certification Based on my medical assessment, after consideration of the patient's comorbidities, presenting symptoms, or acuity I expect that the services needed warrant INPATIENT care.: Yes I certify that my determination is in accordance with my understanding of Medicare's requirements for reasonable and necessary INPATIENT services [42 CFR 412.3e].: Yes Medical Necessity: Other - IV ABX
[2019-06-21] MEDS: INSULIN LISPRO 100 UNIT/ML 3 ML VIAL SUBCUT SCH ×4 (09:43→22:18)
[2019-06-21] MEDS: ENOXAPARIN SODIUM INJ 40 MG/0.4 ML DISP.SYRIN SUBCUT SCH (09:46)
[2019-06-21] MEDS: PIOGLITAZONE HCL 15 MG TABLET PO SCH (09:46)
[2019-06-21] MEDS: ALLOPURINOL 300 MG TABLET PO SCH (09:46)
[2019-06-21] MEDS: PAROXETINE HCL 20 MG TABLET PO SCH (09:46)
[2019-06-22] MEDS: LEVOTHYROXINE SODIUM 0.025 MG TABLET PO SCH (05:47)
[2019-06-22] MEDS: PANTOPRAZOLE SODIUM 40 MG TABLET.DR PO SCH ×2 (05:47→18:11)
[2019-06-22 08:06] LABS: HEMATOCRIT 29.3 % (37.9-51.0); HEMOGLOBIN 9.6 g/dL (13.5-17.0); MEAN CORPUSCULAR HEMOGLOBIN 29.5 pg (27.0-33.4); MEAN CORPUSCULAR HGB CONC 32.6 g/dL (32.0-36.0); MEAN CORPUSCULAR VOLUME 90 fl (80-97); PLATELET COUNT 265 10^3/uL (150-450); RED BLOOD COUNT 3.24 10^6/uL (4.35-5.55); RED CELL DISTRIBUTION WIDTH 15.3 % (11.5-14.0)
[2019-06-22 08:30] LABS: ANION GAP 6 (5-19); BLOOD UREA NITROGEN 16 mg/dL (7-20); CALCIUM 8.6 mg/dL (8.4-10.2); CARBON DIOXIDE 29 mmol/L (22-30); CHLORIDE 96 mmol/L (98-107); GLUCOSE 131 mg/dL (75-110); POTASSIUM 4.7 mmol/L (3.6-5.0)
--- NOTE | 2019-06-22 08:51 | PDOC PROGRESS REPORT ---
Subjective Progress Note for:: 06/22/19 Subjective:: 06/21/2019-no complaints this a.m. June 22, 2019-no complaints this a.m. Reason For Visit: ACUTE LEUKEMIA Physical Exam Vital Signs: Temp Pulse Resp BP Pulse Ox 97.5 F 71 17 155/64 H 96 06/21/19 19:27 06/21/19 19:27 06/21/19 19:27 06/21/19 19:27 06/21/19 19:27 Intake & Output 06/21/19 06/22/19 06/23/19 06:59 06:59 06:59 Intake Total 2063 1020 Output Total 1450 700 Balance 613 320 Weight 85 kg 85 kg General appearance: PRESENT: no acute distress, well-developed, well-nourished Neck exam: ABSENT: carotid bruit, JVD, lymphadenopathy, thyromegaly Respiratory exam: PRESENT: clear to auscultation zeke. ABSENT: rales, rhonchi, wheezes Cardiovascular exam: PRESENT: RRR. ABSENT: diastolic murmur, rubs, systolic murmur Pulses: PRESENT: normal dorsalis pedis pul Vascular exam: PRESENT: normal capillary refill GI/Abdominal exam: PRESENT: normal bowel sounds, soft. ABSENT: distended, guarding, mass, organolmegaly, rebound, tenderness Extremities exam: PRESENT: full ROM. ABSENT: calf tenderness, clubbing, pedal edema Neurological exam: PRESENT: alert, awake, oriented to person, oriented to place, oriented to time, oriented to situation, CN II-XII grossly intact. ABSENT: motor sensory deficit Psychiatric exam: PRESENT: appropriate affect, normal mood. ABSENT: homicidal ideation, suicidal ideation Skin exam: PRESENT: dry, intact, warm. ABSENT: cyanosis, rash Results Laboratory Results: 06/22/19 07:10 06/22/19 07:10 Sodium 131.2 L Potassium 4.7 Chloride 96 L Carbon Dioxide 29 Anion Gap 6 BUN 16 Creatinine 0.81 Est GFR ( Amer) > 60 Glucose 131 H Calcium 8.6 06/11/19 06/12/19 13:04 04:06 Troponin I 0.031 NT-Pro-B Natriuret Pep 2470 H Impressions: Abdomen/Pelvis CT 06/11/19 00:00 IMPRESSION: 1. Masslike consolidation with adjacent ground-glass opacity at the medial right lower lobe, may be secondary to acute infection/inflammation such as pneumonia versus neoplasm. Clinical correlation recommended. E valuation with PET/ CT as clinically warranted. 2. Mediastinal and axillary adenopathy, may be secondary to known leukemia. 3. Cardiomegaly. IMPRESSION: 1. Abdominal, retroperitoneal, pelvic and inguinal adenopathy, may be secondary to known leukemia. 2. 1.7 x 1.3 cm hypodense splenic lesion, indeterminate. 3. 7 mm right ureteral calculus. No hydronephrosis. Bilateral nephrolithiasis. 4. Colonic diverticulosis. Head CT 06/11/19 13:23 IMPRESSION: CHRONIC CHANGES OF ATROPHY AND MICROVASCULAR ISCHEMIA. NO ACUTE PROCESS. EVIDENCE OF ACUTE STROKE: NO. Chest X-Ray 06/13/19 08:15 IMPRESSION: NO ACUTE RADIOGRAPHIC FINDING IN THE CHEST. Chest CT 06/19/19 00:00 IMPRESSION: 1. Progressive right lower lobe infiltrates including worsening consolidation and ground-glass densities. There are also small bilateral pleural effusions now noted. 2. Stable mediastinal adenopathy. There may be some improvement in right hilar region nodes, however, as there is less narrowing of the right mainstem bronchus compared to 06/11/2019. 3. Persistent but perhaps slightly improving axillary adenopathy. Assessment and Plan - Diagnosis (1) CLL (chronic lymphocytic leukemia) Is this a current diagnosis for this admission?: Yes Plan: Oncology believes that this is likely CLL, and will continue to follow him as an outpatient. 06/21/2019-stable at this time. Most likely CLL in nature. Will be followed on outpatient basis was discharged home. 06/22/2019-stable. Will follow up on outpatient basis when discharged home. (2) Pneumonia Qualifiers: Pneumonia type: due to unspecified organism Laterality: bilateral Lung location: lower lobe of lung Qualified Code(s): J18.1 - Lobar pneumonia, unspecified organism Is this a current diagnosis for this admission?: Yes Plan: We have had him on broad-spectrum antibiotics, but he has some persistent intermittent hypoxemia. CT scan of the chest shows that he is got some dense consolidation right lower lobe but also shows that the mass-effect on the right mainstem bronchus has reduced. Once his pneumonia has resolved he should probably have another chest CT. Nothing is grown out of his cultures. We will continue his current antibiotic regimen until he is discharged. We will encourage aggressive pulmonary toilet. 06/21/2019-continue broad-spectrum antibiotics. Chest CT from yesterday showed possible worsening of this pneumonia. Cultures have been negative x5 days. We will continue current antibiotic therapy. Continue to follow 06/22/2019-at this time we will continue broad-spectrum antibiotics. Patient blood cultures are still negative although chest CT showed worsening of pneumonia. Patient has CLL and high white count as it is we will continue antib iotics. (3) Metabolic encephalopathy Is this a current diagnosis for this admission?: Yes Plan: Cautiously optimistic that this is resolved. His sodium is down a little bit so have stopped his IV fluids, give him a dose of Lasix and repeat the BMP tomorrow. 06/21/2019-stable. Continue to follow throughout hospitalization. 06/22/2019-stable. Continue to monitor. (4) Diabetes mellitus type 2 in obese Is this a current diagnosis for this admission?: Yes Plan: 06/21/2019-currently stable on current regimen. Continue treatment may change plan of care based on hyper/hypoglycemic episodes. 06/22/2019-stable, continue current therapy make changes as needed. - Time Time Spent with patient: 15-24 minutes - Inpatient Certification Based on my medical assessment, after consideration of the patient's comorbidities, presenting symptoms, or acuity I expect that the services needed warrant INPATIENT care.: Yes I certify that my determination is in accordance with my understanding of Medicare's requirements for reasonable and necessary INPATIENT services [42 CFR 412.3e].: Yes Medical Necessity: Other - IV antibiotics
[2019-06-22 08:53] LABS: WHITE BLOOD COUNT 49.9 10^3/uL (4.0-10.5)
[2019-06-22] MEDS: INSULIN LISPRO 100 UNIT/ML 3 ML VIAL SUBCUT SCH ×4 (09:25→22:20)
[2019-06-22] MEDS: PAROXETINE HCL 20 MG TABLET PO SCH (12:25)
[2019-06-22] MEDS: ALLOPURINOL 300 MG TABLET PO SCH (12:25)
[2019-06-22] MEDS: PIOGLITAZONE HCL 15 MG TABLET PO SCH (12:25)
[2019-06-22] MEDS: ENOXAPARIN SODIUM INJ 40 MG/0.4 ML DISP.SYRIN SUBCUT SCH (12:26)
[2019-06-22] MEDS: MEROPENEM 1 GM in NORMAL SALINE 50 ML IV SCH (18:11)
[2019-06-23] MEDS: MEROPENEM 1 GM in NORMAL SALINE 50 ML IV SCH ×3 (03:24→17:00)
[2019-06-23 05:24] LABS: ANION GAP 5 (5-19); BLOOD UREA NITROGEN 17 mg/dL (7-20); CALCIUM 8.9 mg/dL (8.4-10.2); CARBON DIOXIDE 29 mmol/L (22-30); CHLORIDE 98 mmol/L (98-107); GLUCOSE 144 mg/dL (75-110); POTASSIUM 5.2 mmol/L (3.6-5.0)
[2019-06-23 05:25] LABS: HEMATOCRIT 29.4 % (37.9-51.0); HEMOGLOBIN 9.6 g/dL (13.5-17.0); MEAN CORPUSCULAR HEMOGLOBIN 29.6 pg (27.0-33.4); MEAN CORPUSCULAR HGB CONC 32.7 g/dL (32.0-36.0); MEAN CORPUSCULAR VOLUME 91 fl (80-97); PLATELET COUNT 289 10^3/uL (150-450); RED BLOOD COUNT 3.24 10^6/uL (4.35-5.55)
[2019-06-23] MEDS: PANTOPRAZOLE SODIUM 40 MG TABLET.DR PO SCH ×2 (06:15→16:50)
[2019-06-23] MEDS: LEVOTHYROXINE SODIUM 0.025 MG TABLET PO SCH (06:15)
[2019-06-23 06:36] LABS: WHITE BLOOD COUNT 51.9 10^3/uL (4.0-10.5)
[2019-06-23] MEDS ORDERED: SODIUM POLYSTYRENE SULFONATE 15 GM/60 ML PO ONE (08:35)
--- NOTE | 2019-06-23 08:40 | PDOC PROGRESS REPORT ---
Subjective Progress Note for:: 06/23/19 Subjective:: 06/21/2019-no complaints this a.m. June 22, 2019-no complaints this a.m. 06/23/2019-no complaints this a.m. Reason For Visit: ACUTE LEUKEMIA Physical Exam Vital Signs: Temp Pulse Resp BP Pulse Ox 98.6 F 71 18 142/53 H 93 06/23/19 07:46 06/23/19 07:46 06/23/19 07:46 06/23/19 07:46 06/23/19 07:46 Intake & Output 06/22/19 06/23/19 06/24/19 06:59 06:59 06:59 Intake Total 1020 787 Output Total 700 Balance 320 787 Weight 85 kg 81.8 kg General appearance: PRESENT: no acute distress, well-developed, well-nourished Head exam: PRESENT: atraumatic, normocephalic Eye exam: PRESENT: conjunctiva pink, EOMI, PERRLA. ABSENT: scleral icterus Ear exam: PRESENT: normal external ear exam Mouth exam: PRESENT: moist, tongue midline Neck exam: ABSENT: carotid bruit, JVD, lymphadenopathy, thyromegaly Respiratory exam: PRESENT: decreased breath sounds, symmetrical, unlabored. ABSENT: rales, rhonchi, wheezes Cardiovascular exam: PRESENT: RRR. ABSENT: diastolic murmur, rubs, systolic murmur Pulses: PRESENT: normal dorsalis pedis pul Vascular exam: PRESENT: normal capillary refill GI/Abdominal exam: PRESENT: normal bowel sounds, soft. ABSENT: distended, g uarding, mass, organolmegaly, rebound, tenderness Rectal exam: PRESENT: deferred Extremities exam: PRESENT: full ROM. ABSENT: calf tenderness, clubbing, pedal edema Neurological exam: PRESENT: alert, awake, oriented to person, oriented to place, oriented to time, oriented to situation, CN II-XII grossly intact. ABSENT: mo tor sensory deficit Psychiatric exam: PRESENT: appropriate affect, normal mood. ABSENT: homicidal ideation, suicidal ideation Skin exam: PRESENT: dry, intact, warm. ABSENT: cyanosis, rash Results Laboratory Results: 06/23/19 04:27 06/23/19 04:27 06/22/19 06/23/19 06/23/19 07:10 04:27 04:27 WBC 49.9 H* 51.9 H* RBC 3.24 L 3.24 L Hgb 9.6 L 9.6 L Hct 29.3 L 29.4 L MCV 90 91 MCH 29.5 29.6 MCHC 32.6 32.7 RDW 15.3 H 15.0 H Plt Count 265 289 Sodium 131.7 L Potassium 5.2 H Chloride 98 Carbon Dioxide 29 Anion Gap 5 BUN 17 Creatinine 0.82 Est GFR ( Amer) > 60 Glucose 144 H Calcium 8.9 06/11/19 06/12/19 13:04 04:06 Troponin I 0.031 NT-Pro-B Natriuret Pep 2470 H Impressions: Abdomen/Pelvis CT 06/11/19 00:00 IMPRESSION: 1. Masslike consolidation with adjacent ground-glass opacity at the medial right lower lobe, may be secondary to acute infection/inflammation such as pneumonia versus neoplasm. Clinical correlation recommended. Evaluation with PET/ CT as clinically warranted. 2. Mediastinal and axillary adenopathy, may be secondary to known leukemia. 3. Cardiomegaly. IMPRESSION: 1. Abdominal, retroperitoneal, pelvic and inguinal adenopathy, may be secondary to known leukemia. 2. 1.7 x 1.3 cm hypodense splenic lesion, indeterminate. 3. 7 mm right ureteral calculus. No hydronephrosis. Bilateral nephrolithiasis . 4. Colonic diverticulosis. Head CT 06/11/19 13:23 IMPRESSION: CHRONIC CHANGES OF ATROPHY AND MICROVASCULAR ISCHEMIA. NO ACUTE PROCESS. EVIDENCE OF ACUTE STROKE: NO. Chest X-Ray 06/13/19 08:15 IMPRESSION: NO ACUTE RADIOGRAPHIC FINDING IN THE CHEST. Chest CT 06/19/19 00:00 IMPRESSION: 1. Progressive right lower lobe infiltrates including worsening consolidation and ground-glass densities. There are also small bilateral pleural effusions now noted. 2. Stable mediastinal adenopathy. There may be some improvement in right hilar region nodes, however, as there is less narrowing of the right mainstem bronchus compared to 06/11/2019. 3. Persistent but perhaps slightly improving axillary adenopathy. Assessment and Plan - Diagnosis (1) CLL (chronic lymphocytic leukemia) Is this a current diagnosis for this admission?: Yes Plan: Oncology believes that this is likely CLL, and will continue to follow him as an outpatient. 06/21/2019-stable at this time. Most likely CLL in nature. Will be followed on outpatient basis was discharged home. 06/22/2019-stable. Will follow up on outpatient basis when discharged home. 06/23/2019-stable. Continue to follow (2) Pneumonia Qualifiers: Pneumonia type: due to unspecified organism Laterality: bilateral Lung location: lower lobe of lung Qualified Code(s): J18.1 - Lobar pneumonia, unspecified organism Is this a current diagnosis for this admission?: Yes Plan: We have had him on broad-spectrum antibiotics, but he has some persistent intermittent hypoxemia. CT scan of the chest shows that he is got some dense consolidation right lower lobe but also shows that the mass-effect on the right mainstem bronchus has reduced. Once his pneumonia has resolved he should probably have another chest CT. Nothing is grown out of his cultures. We will continue his current antibiotic regimen until he is discharged. We will encourage aggressive pulmonary toilet. 06/21/2019-continue broad-spectrum antibiotics. Chest CT from yesterday showed possible worsening of this pneumonia. Cultures have been negative x5 days. We will continue current antibiotic therapy. Continue to follow 06/22/2019-at this time we will continue broad-spectrum antibiotics. Patient blood cultures are still negative although chest CT showed worsening of pneumonia. Patient has CLL and high white count as it is we will continue antibiotics. 06/23/2019-patient remains on broad-spectrum antibiotics IV. I will repeat a chest x-ray this a.m. Will await x-ray findings to make change plan of care at that time. (3) Metabolic encephalopathy Is this a current diagnosis for this admission?: Yes Plan: Cautiously optimistic that this is resolved. His sodium is down a little bit so have stopped his IV fluids, give him a dose of Lasix and repeat the BMP tomorrow. 06/21/2019-stable. Continue to follow throughout hospitalization. 06/22/2019-stable. Continue to monitor. 06/23/2019-stable. Continue to monitor (4) Diabetes mellitus type 2 in obese Is this a current diagnosis for this admission?: Yes Plan: 06/21/2019-currently stable on current regimen. Continue treatment may change plan of care based on hyper/hypoglycemic episodes. 06/22/2019-stable, continue current therapy make changes as needed. 06/23/2019-stable, continue current therapy. - Time Time Spent with patient: 15-24 minutes - Inpatient Certification Based on my medical assessment, after consideration of the patient's co morbidities, presenting symptoms, or acuity I expect that the services needed warrant INPATIENT care.: Yes I certify that my determination is in accordance with my understanding of Medicare's requirements for reasonable and necessary INPATIENT services [42 CFR 412.3e].: Yes Medical Necessity: Other - IV antibiotics
[2019-06-23] MEDS: INSULIN LISPRO 100 UNIT/ML 3 ML VIAL SUBCUT SCH ×4 (09:17→22:08)
[2019-06-23] MEDS: ALLOPURINOL 300 MG TABLET PO SCH (09:18)
[2019-06-23] MEDS: PIOGLITAZONE HCL 15 MG TABLET PO SCH (09:18)
[2019-06-23] MEDS: ENOXAPARIN SODIUM INJ 40 MG/0.4 ML DISP.SYRIN SUBCUT SCH (09:18)
[2019-06-23] MEDS: PAROXETINE HCL 20 MG TABLET PO SCH (09:18)
[2019-06-23] MEDS: ACETAMINOPHEN 325 MG TABLET PO PRN (17:42)
[2019-06-24] MEDS: MEROPENEM 1 GM in NORMAL SALINE 50 ML IV SCH ×2 (02:37→10:12)
[2019-06-24] MEDS: LEVOTHYROXINE SODIUM 0.025 MG TABLET PO SCH (06:40)
[2019-06-24] MEDS: PANTOPRAZOLE SODIUM 40 MG TABLET.DR PO SCH (06:40)
[2019-06-24 06:59] LABS: HEMATOCRIT 30.3 % (37.9-51.0); HEMOGLOBIN 9.8 g/dL (13.5-17.0); MEAN CORPUSCULAR HEMOGLOBIN 29.5 pg (27.0-33.4); MEAN CORPUSCULAR HGB CONC 32.5 g/dL (32.0-36.0); MEAN CORPUSCULAR VOLUME 91 fl (80-97); PLATELET COUNT 294 10^3/uL (150-450); RED BLOOD COUNT 3.33 10^6/uL (4.35-5.55); RED CELL DISTRIBUTION WIDTH 15.3 % (11.5-14.0)
[2019-06-24 07:12] LABS: ANION GAP 7 (5-19); BLOOD UREA NITROGEN 15 mg/dL (7-20); CALCIUM 8.8 mg/dL (8.4-10.2); CARBON DIOXIDE 27 mmol/L (22-30); CHLORIDE 99 mmol/L (98-107); GLUCOSE 155 mg/dL (75-110); POTASSIUM 4.5 mmol/L (3.6-5.0)
--- NOTE | 2019-06-24 07:49 | PDOC DISCHARGE SUMMARY ---
General - Admit/Disc Date/PCP Admission Date/Primary Care Provider: 06/11/19 15:11 NARDA DENSON Discharge Date: 06/24/19 - Discharge Diagnosis (1) CLL (chronic lymphocytic leukemia) Is this a current diagnosis for this admission?: Yes (2) Pneumonia Is this a current diagnosis for this admission?: Yes (3) Metabolic encephalopathy Is this a current diagnosis for this admission?: Yes (4) Diabetes mellitus type 2 in obese Is this a current diagnosis for this admission?: Yes - Additional Information Resuscitation Status: Do Not Resuscitate Discharge Activity: Activity As Tolerated Prescriptions: Levofloxacin [Levaquin 750 mg Tablet] 750 mg PO DAILY #3 tablet Home Medications: Levothyroxine Sodium [Synthroid 0.025 mg Tablet] 0.025 mg PO Q6AM 06/11/19 Metformin HCl 500 mg PO BID 06/11/19 Paroxetine HCl [Paxil] 30 mg PO DAILY 06/11/19 Pioglitazone HCl [Actos 15 mg Tablet] 15 mg PO DAILY 06/11/19 Levofloxacin [Levaquin 750 mg Tablet] 750 mg PO DAILY #3 tablet 06/24/19 History of Present Illness Patient complains of: None this a.m. History of Present Illness: GUS EASTMAN is a 83 year old male who presented to the ER with dizziness and associated nausea and decreased appetite was found to have a white blood cell count of 88,000. Patient was admitted for further evaluation and treatment. Hospital Course Hospital Course: Patient was admitted to medical surgical floor and was seen in consultation by Dr. López. Dr. López determined patient has CLL and not an acute leukemia. Patient will be seen on outpatient basis and followed by Dr. López. At that time patient denied any fevers chills or cough but was determined to have a right lower lobe pneumonia while here. Patient had an 8-day round of Merrem IV and his blood cultures been negative at this time. Patient is improved sufficiently to return home with follow-up with his primary care practitioner first of next week. Patient will also be seen on outpatient basis as stated before with oncology. I will continue patient on Levaquin 750 mg daily x3 days until patient is seen by his primary care practitioner. I have educated patient if have any other problems over the weekend to return to the ER. Physical Exam Vital Signs: Temp Pulse Resp BP Pulse Ox 98.2 F 64 18 149/54 H 98 06/23/19 23:46 06/23/19 23:46 06/23/19 23:46 06/23/19 23:46 06/23/19 23:46 Intake & Output 06/23/19 06/24/19 06/25/19 06:59 06:59 06:59 Intake Total 787 590 Balance 787 590 Weight 81.8 kg 82.2 kg General appearance: PRESENT: no acute distress, well-developed, well-nourished Head exam: PRESENT: atraumatic, normocephalic Eye exam: PRESENT: conjunctiva pink, EOMI, PERRLA. ABSENT: scleral icterus Ear exam: PRESENT: normal external ear exam Mouth exam: PRESENT: moist, tongue midline Neck exam: ABSENT: carotid bruit, JVD, lymphadenopathy, thyromegaly Respiratory exam: PRESENT: clear to auscultation zeke. ABSENT: rales, rhonchi, wheezes Cardiovascular exam: PRESENT: RRR. ABSENT: diastolic murmur, rubs, systolic murmur Pulses: PRESENT: normal dorsalis pedis pul Vascular exam: PRESENT: normal capillary refill GI/Abdominal exam: PRESENT: normal bowel sounds, soft. ABSENT: distended, guarding, mass, organolmegaly, rebound, tenderness Rectal exam: PRESENT: deferred Extremities exam: PRESENT: full ROM. ABSENT: calf tenderness, clubbing, pedal edema Neurological exam: PRESENT: alert, awake, oriented to person, oriented to place, oriented to time, oriented to situation, CN II-XII grossly intact. ABSENT: motor sensory deficit Psychiatric exam: PRESENT: appropriate affect, normal mood. ABSENT: homicidal ideation, suicidal ideation Skin exam: PRESENT: dry, intact, warm. ABSENT: cyanosis, rash Results Laboratory Results: 06/24/19 06:15 06/24/19 06:15 06/24/19 06/24/19 06:15 06:15 WBC 53.0 H* RBC 3.33 L Hgb 9.8 L Hct 30.3 L MCV 91 MCH 29.5 MCHC 32.5 RDW 15.3 H Plt Count 294 Sodium 132.8 L Potassium 4.5 Chloride 99 Carbon Dioxide 27 Anion Gap 7 BUN 15 Creatinine 0.80 Est GFR ( Amer) > 60 Glucose 155 H Calcium 8.8 06/11/19 06/12/19 13:04 04:06 Troponin I 0.031 NT-Pro-B Natriuret Pep 2470 H Impressions: Abdomen/Pelvis CT 06/11/19 00:00 IMPRESSION: 1. Masslike consolidation with adjacent ground-glass opacity at the medial right lower lobe, may be secondary to acute infection/inflammation such as pneumonia versus neoplasm. Clinical correlation recommended. Evaluation with PET/ CT as clinically warranted. 2. Mediastinal and axillary adenopathy, may be secondary to known leukemia. 3. Cardiomegaly. IMPRESSION: 1. Abdominal, retroperitoneal, pelvic and inguinal adenopathy, may be secondary to known leukemia. 2. 1.7 x 1.3 cm hypodense splenic lesion, indeterminate. 3. 7 mm right ureteral calculus. No hydronephrosis. Bilateral nephrolithias is. 4. Colonic diverticulosis. Head CT 06/11/19 13:23 IMPRESSION: CHRONIC CHANGES OF ATROPHY AND MICROVASCULAR ISCHEMIA. NO ACUTE PROCESS. EVIDENCE OF ACUTE STROKE: NO. Chest X-Ray 06/13/19 08:15 IMPRESSION: NO ACUTE RADIOGRAPHIC FINDING IN THE CHEST. Chest CT 06/19/19 00:00 IMPRESSION: 1. Progressive right lower lobe infiltrates including worsening consolidation and ground-glass densities. There are also small bilateral pleural effusions now noted. 2. Stable mediastinal adenopathy. There may be some improvement in right hilar region nodes, however, as there is less narrowing of the right mainstem bronchus compared to 06/11/2019. 3. Persistent but perhaps slightly improving axillary adenopathy. Qualifiers - * PATIENT BEING DISCHARGED WITH ANY OF THE FOLLOWING DIAGNOSIS: No Acute Heart Failure - Is this a Heart Failure Patient?: No Plan Time Spent: Greater than 30 Minutes
[2019-06-24] MEDS: INSULIN LISPRO 100 UNIT/ML 3 ML VIAL SUBCUT SCH ×2 (09:00→12:53)
[2019-06-24] MEDS: ENOXAPARIN SODIUM INJ 40 MG/0.4 ML DISP.SYRIN SUBCUT SCH (10:12)
[2019-06-24] MEDS: PAROXETINE HCL 20 MG TABLET PO SCH (10:12)
[2019-06-24] MEDS: PIOGLITAZONE HCL 15 MG TABLET PO SCH (10:12)
[2019-06-24] MEDS: ALLOPURINOL 300 MG TABLET PO SCH (10:13)
[2019-06-24 12:49] VITALS: BP 127/51
== END 2019-06-24 13:30 | disposition home health service (06) | DRG 840 ==
LOC: ER 12:27 → EH 15:11 → 4N 16:39
PROVIDERS: ADMIT Internal Medicine; ATTEND Internal Medicine
DX: C91.10 Chronic lymphocytic leukemia of B-cell type not having achieved remission (principal); J18.9 Pneumonia, unspecified organism; G93.41 Metabolic encephalopathy; Z66 Do not resuscitate; E11.9 Type 2 diabetes mellitus without complications; Z79.84 Long term (current) use of oral hypoglycemic drugs; Z91.81 History of falling; F32.9 Major depressive disorder, single episode, unspecified; Z90.49 Acquired absence of other specified parts of digestive tract; Z88.2 Allergy status to sulfonamides; R59.1 Generalized enlarged lymph nodes; R63.4 Abnormal weight loss; Z68.25 Body mass index [BMI] 25.0-25.9, adult
CPT/HCPCS: 36415; 70450; 71046; 71260; 74177; 80048; 80053; 80061; 80202; 81001; 82565; 82803; 82962; 83036; 83605; 83735; 83880; 84443; 84484; 85025; 85027; 85540; 87040; 88184; 88185; 93005; 93010; 96361; 96374; 99285; J0696; J1650; J1815; J1940; J1956; J2185; J2270; J2405; J2920; J2930; J3360; J3370; J3490; J7030; J7060

== ENCOUNTER 2019-11-04 16:00 | Emergency (ER) | payer MEDICARE ==
--- NOTE | 2019-11-04 17:48 | ER Document Report ---
ED Medical Screen (RME) - General Chief Complaint: Rash Stated Complaint: RASH Time Seen by Provider: 11/04/19 17:42 Primary Care Provider: RONALDO SHAY FNP-C [Primary Care Provider] - Follow up as needed TRAVEL OUTSIDE OF THE [place] IN LAST 30 DAYS: No - HPI Notes: 11/04/19 17:46 Patient is an 84-year-old male who presents complaining of a rash to the right side of his back/shoulder that is been present for the past 4 days and worsening. Patient states that he does have soreness associated and some pruritus. No fever. No new exposure chemicals, detergents, soaps, travel, or foods. No recent illness. No chest pain or shortness of breath. I have treated and performed a rapid initial assessment of this patient. A comprehensive ED assessment and evaluation of the patient, analysis of test results and completion of medical decision making process will be conducted by additional ED providers. PHYSICAL EXAMINATION: GENERAL: Well-appearing, well-nourished and in no acute distress. A&Ox4. Answers questions appropriately. Skin: there is a large macular erythemic area to the rt back/flank that encompasses almost the entirety of the rt back and is well-demarcated. No gross tenderness, fluctuance, or discharge. - Related Data Allergies/Adverse Reactions: Sulfa (Sulfonamide Antibiotics) Allergy (Verified 11/04/19 17:40) Home Medications: paroxetine, piolitazone, levothyroxine, metformin Past Medical History - Social History Chew tobacco use (# tins/day): No Frequency of alcohol use: Occasional Drug Abuse: None Endocrine Medical History: Reports: Hx Diabetes Mellitus Type 2 Renal/ Medical History: Denies: Hx Peritoneal Dialysis Psychiatric Medical History: Reports: Hx Depression Past Surgical History: Reports: Hx Appendectomy, Hx Tonsillectomy Physical Exam - Vital signs Vitals: Temp Pulse Resp BP Pulse Ox 97.6 F 61 18 154/44 H 97 11/04/19 16:26 11/04/19 16:26 11/04/19 16:11/04/19 16:11/04/19 16:26 Course - Vital Signs Vital signs: Temp Pulse Resp BP Pulse Ox 97.6 F 61 18 154/44 H 97 11/04/19 16:26 11/04/19 16:26 11/04/19 16:26 11/04/19 16:26 11/04/19 16:26 Doctor's Discharge - Discharge Referrals: RONALDO SHAY, APPLIED MATHEMATICIAN-C [Primary Care Provider] - Follow up as needed
[2019-11-04 18:28] LABS: HEMATOCRIT 35.5 % (37.9-51.0); HEMOGLOBIN 11.3 g/dL (13.5-17.0); MEAN CORPUSCULAR HEMOGLOBIN 29.1 pg (27.0-33.4); MEAN CORPUSCULAR HGB CONC 31.9 g/dL (32.0-36.0); MEAN CORPUSCULAR VOLUME 91 fl (80-97); PLATELET COUNT 182 10^3/uL (150-450); RED CELL DISTRIBUTION WIDTH 15.5 % (11.5-14.0)
[2019-11-04 18:36] LABS: WHITE BLOOD COUNT 55.3 10^3/uL (4.0-10.5)
[2019-11-04 18:45] LABS: ALBUMIN 4.4 g/dL (3.5-5.0); ALKALINE PHOSPHATASE 58 U/L (38-126); ANION GAP 9 (5-19); ASPARTATE AMINO TRANSFERASE 40 U/L (17-59); BILIRUBIN,DIRECT 0.3 mg/dL (0.0-0.4); BILIRUBIN,TOTAL 0.4 mg/dL (0.2-1.3); BLOOD UREA NITROGEN 17 mg/dL (7-20); CALCIUM 9.9 mg/dL (8.4-10.2); CARBON DIOXIDE 29 mmol/L (22-30); CHLORIDE 103 mmol/L (98-107); GLUCOSE 88 mg/dL (75-110); POTASSIUM 5.1 mmol/L (3.6-5.0); TOTAL PROTEIN 7.6 g/dL (6.3-8.2)
[2019-11-04 18:48] LABS: APPEARANCE,URINE CLEAR; BILIRUBIN,URINE NEGATIVE (NEGATIVE); COLOR,URINE STRAW; GLUCOSE, URINE NEGATIVE (NEGATIVE); KETONES,URINE NEGATIVE (NEGATIVE); PROTEIN,URINE NEGATIVE (NEGATIVE); URINE SPECIFIC GRAVITY 1.008; UROBILINOGEN,URINE NEGATIVE mg/dL (<2.0)
[2019-11-04 18:55] LABS: ABSOLUTE LYMPHOCYTES# (MANUAL) 51.4 10^3/uL (0.5-4.7); ABSOLUTE MONOCYTES # (MANUAL) 1.7 10^3/uL (0.1-1.4); ANISOCYTOSIS SLIGHT; BASOPHILS % (MANUAL) 0 % (0-2); EOSINOPHILS % (MANUAL) 1 % (0-6); LYMPHOCYTES % (MANUAL) 70 % (13-45); MONOCYTES % (MANUAL) 3 % (3-13); PLATELET COMMENT ADEQUATE; SEGMENTED NEUTROPHILS % (MAN) 3 % (42-78); TOTAL CELLS COUNTED 100
[2019-11-04] MEDS ORDERED: PREDNISONE 20 MG TABLET PO ONE (20:02)
[2019-11-04] MEDS ORDERED: FAMOTIDINE 20 MG TABLET PO ONE (20:03)
[2019-11-04 21:04] VITALS: BP 144/51
--- NOTE | 2019-11-04 21:08 | ER Document Report ---
ED Skin Rash/Insect Bite/Abscs - General Chief Complaint: Rash Stated Complaint: RASH Time Seen by Provider: 11/04/19 17:42 Primary Care Provider: RONALDO SHAY FNP-C [Primary Care Provider] - Follow up as needed Notes: Patient is a pleasant 84-year-old gentleman with a history of leukemia who comes in complaining of a rash on his back. Patient is apparently allergic to Aspercreme. He put Aspercreme on his back and then developed itching. Patient has since had some erythema. Took Benadryl with minimal relief. States that heat makes it worse. No fever or nausea. No other concerns. TRAVEL OUTSIDE OF THE [place] IN LAST 30 DAYS: No - Related Data Allergies/Adverse Reactions: Sulfa (Sulfonamide Antibiotics) Allergy (Verified 11/04/19 17:40) Home Medications: paroxetine, piolitazone, levothyroxine, metformin Past Medical History - Social History Smoking Status: Former Smoker Chew tobacco use (# tins/day): No Frequency of alcohol use: Occasional Drug Abuse: None Family History: Reviewed & Not Pertinent Patient has suicidal ideation: No Patient has homicidal ideation: No Endocrine Medical History: Reports: Hx Diabetes Mellitus Type 2 Renal/ Medical History: Denies: Hx Peritoneal Dialysis Psychiatric Medical History: Reports: Hx Depression Past Surgical History: Reports: Hx Appendectomy, Hx Tonsillectomy Review of Systems - Review of Systems -: Yes All other systems reviewed and negative Physical Exam - Vital signs Vitals: Temp Pulse BP Pulse Ox 97.6 F 56 L 154/44 H 97 11/04/19 16:24 11/04/19 16:24 11/04/19 16:24 11/04/19 16:24 Interpretation: Normal - General General appearance: Appears well, Alert - HEENT Head: Normocephalic, Atraumatic Eyes: Normal Pupils: PERRL - Respiratory Respiratory status: No respiratory distress Chest status: Nontender Breath sounds: Normal Chest palpation: Normal - Cardiovascular Rhythm: Regular Heart sounds: Normal auscultation Murmur: No - Abdominal Inspection: Normal Distension: No distension Bowel sounds: Normal Tenderness: Nontender Organomegaly: No organomegaly - Back Back: Normal, Nontender - Extremities General upper extremity: Normal inspection, Nontender, Normal color, Normal ROM, Normal temperature General lower extremity: Normal inspection, Nontender, Normal color, Normal ROM, Normal temperature, Normal weight bearing. No: Liam's sign - Neurological Neuro grossly intact: Yes Cognition: Normal Orientation: AAOx4 [place] Coma Scale Eye Opening: Spontaneous Bhavesh Coma Scale Verbal: Oriented Bhavesh Coma Scale Motor: Obeys Commands Kent Coma Scale Total: 15 Speech: Normal Motor strength normal: LUE, RUE, LLE, RLE Sensory: Normal - Psychological Associated symptoms: Normal affect, Normal mood - Skin Skin Temperature: Warm Skin Moisture: Dry Skin Color: Normal Skin irregularity: Erythema - Area over back consistent with allergic dermatitis. Drip bowman on the right low back. Excoriations to right upper shoulder. No evidence for cellulitis or secondary bacterial infection no induration or discharge. Course - Re-evaluation Re-evalutation: 11/04/19 21:45 Patient with allergic reaction. Discussed with Dr. López from oncology. Will discharge with prednisone and famotidine. Continue with Benadryl. Patient agrees with this plan. Stable for discharge. Return if further concerns. Absolutely no evidence for infection at this time. - Vital Signs Vital signs: Temp Pulse Resp BP Pulse Ox 98.0 F 53 L 17 144/51 H 95 11/04/19 20:53 11/04/19 20:53 11/04/19 21:04 11/04/19 20:53 11/04/19 20:53 - Laboratory Result Diagrams: 11/04/19 18:05 11/04/19 18:05 Laboratory results interpreted by me: 11/04/19 11/04/19 11/04/19 18:05 18:05 18:05 WBC 55.3 H* RBC 3.90 L Hgb 11.3 L Hct 35.5 L MCHC 31.9 L RDW 15.5 H Seg Neuts % (Manual) 3 L Lymphocytes % (Manual) 70 H Abs Lymphs (Manual) 51.4 H Abs Monocytes (Manual) 1.7 H Potassium 5.1 H Urine Blood MODERATE H Discharge - Discharge Clinical Impression: Allergic dermatitis Condition: Stable Disposition: HOME, SELF-CARE Instructions: Contact Dermatitis ([facility]) Prescriptions: Prednisone [Deltasone 20 mg Tablet] 2 tab PO DAILY 4 Days #8 tablet Famotidine 40 mg PO DAILY #20 tablet Referrals: RONALDO SHAY FNP-C [Primary Care Provider] - Follow up as needed
== END 2019-11-04 21:20 | disposition home or self-care (01) ==
LOC: ER 16:00
DX: L23.9 Allergic contact dermatitis, unspecified cause (principal); R21 Rash and other nonspecific skin eruption; Z85.6 Personal history of leukemia; Z87.891 Personal history of nicotine dependence; E11.9 Type 2 diabetes mellitus without complications
CPT/HCPCS: 99283; 36415; 85025; 80053; 81001; A9270 ×2; J7512

== ENCOUNTER → 2020-07-03 | Outpatient (CLI) | payer MEDICARE ==
--- NOTE | 2020-07-03 12:25 | RADIOLOGY REPORT (SQ) ---
EXAM DESCRIPTION: CAROTID DOPPLER IMAGES COMPLETED DATE/TIME: 07/03/2020 11:48 am REASON FOR STUDY: RETINAL HEMORRHAGE BILAT H35.63 RETINAL HEMORRHAGE, BILATERAL COMPARISON: None. TECHNIQUE: Grayscale ultrasound, Doppler velocity and spectra, and color Doppler images acquired of the extra-cranial carotid and vertebral arteries. Images stored on PACS. LIMITATIONS: None. FINDINGS: RIGHT CAROTID CCA Velocities: Within normal limits. ICA Velocities Peak systolic 212 cm/s. End diastolic 32 cm/s. Proximal ICA/CCA peak systolic ratio 1.6. Soft plaque is present. About 50% stenosis is present. LEFT CAROTID CCA Velocities: Within normal limits. ICA Velocities Peak systolic 222 cm/s. End diastolic 44 cm/s. Proximal ICA/CCA peak systolic ratio 1.5. Soft plaque is present. About 50% stenosis is suggested. VERTEBRAL ARTERIES: Antegrade flow. Normal waveforms. SUBCLAVIAN ARTERIES: No finding. OTHER: No other significant finding. IMPRESSION: There is about 50% stenosis bilaterally. Soft plaque is present in each carotid. COMMENT: Quality ID #[id number]: Velocity criteria are extrapolated from the diameter data as defined by t he Society of Radiologists in Ultrasound Consensus Conference. Radiology 2003: 229; 340-346. TECHNICAL DOCUMENTATION: JOB ID: [id number] 2010 [place]- All Rights Reserved Reading location - IP/workstation name: [email or web address]
== END ==
LOC: SP 09:24
PROVIDERS: ATTEND Ophthalmology
DX: H35.63 Retinal hemorrhage, bilateral (principal); I65.23 Occlusion and stenosis of bilateral carotid arteries
CPT/HCPCS: 93880

== ENCOUNTER 2020-07-18 05:20 | Emergency (ER) | payer MEDICARE ==
[2020-07-18] MEDS ORDERED: CEPHALEXIN 500 MG CAPSULE PO ONE (06:08)
[2020-07-18] MEDS ORDERED: DEXAMETHASONE 4 MG TABLET PO ONE (06:08)
--- NOTE | 2020-07-18 06:11 | ER Document Report ---
ED Skin Rash/Insect Bite/Abscs - General Chief Complaint: Rash Stated Complaint: RASH RIGHT ARM Time Seen by Provider: 07/18/20 06:05 Primary Care Provider: BOGDAN ROBLES MD [Primary Care Provider] - Follow up as needed Notes: CHIEF COMPLAINT: Pruritic rash right arm HPI: 85-year-old male presenting with a pruritic rash on the right arm over the last week. Has been scratching at the rash. States that he periodically he will have a rash like this that gets treated with steroids. Denies fevers. Denies pain but complains of significant itching to the arm ROS: See HPI - all other systems were reviewed and are otherwise negative Constitutional: no fever Eyes: no drainage, no blurred vision ENT: no runny nose, no sore throat Cardiovascular: no chest pain Resp: no SOB, no cough GI: no vomiting, no diarrhea, no abdominal pain : no dysuria Integumentary: + rash Allergy: no hives Musculoskeletal: no extremity pain or swelling Neurological: no numbness/tingling, no weakness MEDICATIONS: I agree with the patient medications as charted by the RN. ALLERGIES: I agree with the allergies as charted by the RN. PAST MEDICAL HISTORY/PAST SURGICAL HISTORY: Reviewed and agree as charted by RN. SOCIAL HISTORY: Reviewed and agree as charted by RN. FAMILY HISTORY: No significant familial comorbid conditions directly related to patient complaint EXAM: Reviewed vital signs as charted by RN. CONSTITUTIONAL: Alert and oriented and responds appropriately to questions. Well-appearing; well-nourished HEAD: Normocephalic; atraumatic EYES: Conjunctivae clear, sclerae non-icteric ENT: normal nose; no rhinorrhea; moist mucous membranes NECK: Supple without meningismus CARD: RRR; no murmurs, no clicks, no rubs, no gallops; symmetric distal pulses RESP: Normal chest excursion without splinting or tachypnea ABD/GI: non-distended. BACK: The back appears normal EXT: Normal ROM in all joints; non-tender to palpation; no cyanosis, no effusions, no edema SKIN: Normal color for age and race; warm; dry; good turgor; there is a erythematous rash on the right forearm extending from the wrist to just above the antecubital region of the elbow. No fluctuant or indurated regions. There is some excoriation where patient has been scratching. It is warm to touch NEURO: Moves all extremities equally; Motor and sensory function intact PSYCH: The patient's mood and manner are appropriate. Grooming and personal hygiene are appropriate. MDM: 85-year-old male with what is likely a dermatitis on the right forearm unknown cause but given the length of time cannot completely rule out an infection of the skin. Will cover with Keflex, Decadron, follow-up PCP TRAVEL OUTSIDE OF THE [place] IN LAST 30 DAYS: No - Related Data Allergies/Adverse Reactions: Sulfa (Sulfonamide Antibiotics) Allergy (Verified 11/04/19 17:40) Past Medical History - Social History Smoking Status: Former Smoker Chew tobacco use (# tins/day): No Frequency of alcohol use: None Drug Abuse: None Family History: Reviewed & Not Pertinent Patient has homicidal ideation: No Endocrine Medical History: Reports: Hx Diabetes Mellitus Type 2 Renal/ Medical History: Denies: Hx Peritoneal Dialysis Psychiatric Medical History: Reports: Hx Depression Past Surgical History: Reports: Hx Appendectomy, Hx Tonsillectomy Physical Exam - Vital signs Vitals: Temp 97.7 F 07/18/20 05:29 Course - Vital Signs Vital signs: Temp Pulse Resp BP Pulse Ox 97.1 F 51 L 20 140/50 H 97 07/18/20 05:32 07/18/20 05:32 07/18/20 05:32 07/18/20 05:32 07/18/20 05:32 Discharge - Discharge Clinical Impression: Dermatitis, Cellulitis of forearm, right Condition: Stable Disposition: HOME, SELF-CARE Additional Instructions: Take the medications as prescribed. Follow-up with your primary care provider in 1 to 2 days for recheck of the forearm and return if the redness worsens or you develop fever greater than 101 Prescriptions: Dexamethasone [Decadron 4 Mg Tablet] 4 mg PO DAILY #7 tablet Cephalexin Monohydrate [Keflex 500 mg Capsule] 500 mg PO Q6H 7 Days #28 capsule Referrals: BOGDAN ROBLES MD [Primary Care Provider] - Follow up as needed
[2020-07-18 06:23] VITALS: BP 139/38
== END 2020-07-18 06:25 | disposition home or self-care (01) ==
LOC: ER 05:20
DX: L03.113 Cellulitis of right upper limb (principal); L30.9 Dermatitis, unspecified; E11.9 Type 2 diabetes mellitus without complications; Z88.2 Allergy status to sulfonamides
CPT/HCPCS: 99283; A9270 ×2; J8540